=== PATIENT | female | born 1950 | race Two or more races ===

== ENCOUNTER 2021-06-01 09:16 | Outpatient (AMBR) | payer MEDICARE, MEDICAID, SELFPAY ==
--- NOTE | 2021-05-25 14:36 | PTNOTE_ITS ---
PT OP Initial Eval Patient Information Visit Reasons: [facility] Fall Medical Diagnosis: Falls Treatment Dx #1: Balance Defcits Treatment Dx #2: LE Weakness Start of Care: 05/25/21 Date of Onset: 3 months ago Initial Assessment Subjective Pt is a 71 y/o female c/o falls in the past months. Pt mention that she used to be on a lot of meds and lately her meds has been change to taking less. Pt feels dizzy, weak, and loss balance often. Pt currently walks with a quad cane or walker. Pt has limitation with self care, cooking, cleaning, recreational activities, walking, and uneven surfaces. Pt has a mottler operator that does help throughout the day. Objective BLE AROM: all motions are WFL LE MMTs Hip Flexors: 3/5 Quads: 4-/5 Hs: 3+/5 Glute Med: 3/5 Glute Max: 3/5 Balance Test: TUG- 25 sec; Tinetti- 15/28 SLS: unable Assessment Pt demonstrate LE weakness and balance deficits leading to difficulty with dynamic activities and frequent falls. Pt will benefit from physical therapy to increase LE strength, endurance, and work on overall balance. Short Term and [facility] Goals 1) Increase BLE MMTs grossly to 3+/5 in 4 wks to be able to walk more than 45 mins 2) Increase Tinetti score to 25/28 points in 4 wks to prevent future falls 3) Decrease TUG to 15 sec in 4 wks to be able to ambulate safer 4) Increase BLE SLS to 10 sec in 4 wks to be able to perform self care activities 5) Indep with HEP Treatment Plan 1) Manual Therapy 2) Therapeutic Activities 3) Therapeutic Exercises 4) Modalities (ice, heat) 5) Balance Training Frequency and Duration 2 x wk for 4 wks Certification Dates: 05/25/21 to 08/25/21 Office Procedures PT Procedures PT Date of Service: 05/25/21 OP PT Eval Mod Complex 30 minutes: Yes
--- NOTE | 2021-06-01 10:32 | PT.ODAYNRPT ---
PT Outpatient Daily Note Date of Service: 06/01/2021 OP Daily Note Visit Reasons: [facility] Fall Outpatient Physical Therapy Treatment Date: 06/01/21 Subjective: pt asked if she should take her anxiety meds prior to treatment. advised pt it is her choice. if she needs it she can take it. Objective: see flow sheet. Assessment: placed gait belt on pt for safety. pt used SPC but ambulates with trying to use things to grab onto. used chair behing pt for safety. pt fatigues and needs rest breaks in between. pt needed helping with counting the reps as she would forget. pt needed cuing to relax and take deep breaths. Plan: continue POC per PT. Length of Time (minutes) of Treatment: 30 Minutes HEAVY EQUIPMENT ENGINE MECHANIC Service Modifier Method I: Divide the number of min of care provided by the HEAVY EQUIPMENT ENGINE MECHANIC/NATALY by the total min of care provided then multiply by 100. If greater than 11 percent modifier is required. Method II: Divide the total time of care provided to patient by 10 (round to the nearest whole number) and add 1 min. to set the minimum time requirement. If treatment total was 60 min., then 10% of 6 min Did HEAVY EQUIPMENT ENGINE MECHANIC provide more than 10% of the care?: Yes PT CQ modifier applied: CQ Modifier applied Office Procedures PT Procedures PT Date of Service: 05/25/21 OP PT Eval Mod Complex 30 minutes: Yes PT Procedures PT Date of Service: 06/01/21 Therapeutic Exercise 30 minutes: Yes
== END 2021-06-05 23:59 | disposition home or self-care (01) ==
PROVIDERS: PCP Nurse Practitioner Family; Referring Provider Nurse Practitioner Family; Visit Provider Nurse Practitioner Family
DX: R53.1 Weakness (principal); R26.2 Difficulty in walking, not elsewhere classified; Z91.81 History of falling
CPT/HCPCS: 97110; 97162

== ENCOUNTER 2021-07-05 11:32 | Outpatient (AMBR) | payer MEDICARE, MEDICAID, SELFPAY ==
--- NOTE | 2021-06-18 11:25 | PTNOTE_ITS ---
PT Outpatient Daily Note Date of Service: 06/18/2021 OP Daily Note Visit Reasons: [facility] Fall Outpatient Physical Therapy Treatment Date: 06/18/21 Subjective: pt states she had a check up with a neuro doctor and told her she does not have parkinsons nor dementia. pt does mention she forgets to keep count of the reps. Objective: see flow sheet. Assessment: added new balance exercises inside the PB for safety. pt is unsteady but is testing her balance by not using the rails. advised her to use rails if needed. after the second rep of the tandem walking she was able to slightly improve her balance. progressed her side steps by adding the foam pad in which she had her hands above the rails but did not use them. Plan: continue POC per PT. Length of Time (minutes) of Treatment: 30 Minutes ELECTRICIAN STATION ASSISTANT Service Modifier Method I: Divide the number of min of care provided by the ELECTRICIAN STATION ASSISTANT/NATALY by the total min of care provided then multiply by 100. If greater than 11 percent modifier is required. Method II: Divide the total time of care provided to patient by 10 (round to the nearest whole number) and add 1 min. to set the minimum time requirement. If treatment total was 60 min., then 10% of 6 min Did ELECTRICIAN STATION ASSISTANT provide more than 10% of the care?: Yes PT CQ modifier applied: CQ Modifier applied Office Procedures PT Procedures PT Date of Service: 06/18/21 Therapeutic Exercise 30 minutes: Yes
--- NOTE | 2021-06-22 14:53 | PTNOTE_ITS ---
PT Outpatient Daily Note Date of Service: 06/22/2021 OP Daily Note Visit Reasons: [facility] Fall Outpatient Physical Therapy Treatment Date: 06/22/21 Subjective: pt doing well upon visit. Objective: see flow sheet. Assessment: after the scifit pt mentioned she was having pain in her abdominal area. pt ambulates with no AD and is unsteady with her gait. pt is able to balance herself during her exercises with no hands on the rail but she does keep them right above the rail. at the first she can be unsteady but then she improves her balance. even with her SLS balance she is improving. pt fatigued after exercises but had no other complaints. Plan: continue POC per PT. Length of Time (minutes) of Treatment: 30 Minutes TECHNOLOGY SOLUTIONS ARCHITECT Service Modifier Method I: Divide the number of min of care provided by the TECHNOLOGY SOLUTIONS ARCHITECT/NATALY by the total min of care provided then multiply by 100. If greater than 11 percent modifier is required. Method II: Divide the total time of care provided to patient by 10 (round to the nearest whole number) and add 1 min. to set the minimum time requirement. If treatment total was 60 min., then 10% of 6 min Did TECHNOLOGY SOLUTIONS ARCHITECT provide more than 10% of the care?: Yes PT CQ modifier applied: CQ Modifier applied Office Procedures PT Treatments PT Date of Service: 06/22/21 Therapeutic Exercise 30 minutes: Yes PT Treatments PT Date of Service: 06/18/21 Therapeutic Exercise 30 minutes: Yes
--- NOTE | 2021-06-26 12:39 | PTNOTE_ITS ---
PT Outpatient Daily Note Date of Service: 06/26/21 OP Daily Note Visit Reasons: [facility] Fall Outpatient Physical Therapy Treatment Date: 06/26/21 Subjective: Pt's anxiety was bad the other day with SOLAR SALES ADVISOR.Pt denies of any falls lately. Objective: Please see flow chart for list of ther ex performed Assessment: difficulty with tandem walking due to balance and fear of falling. performing the exercises in PB help decrease patient's anxiety. Plan: Continue with PT Length of Time (minutes) of Treatment: 30 Minutes Office Procedures PT Treatments PT Date of Service: 06/22/21 Therapeutic Exercise 30 minutes: Yes PT Treatments PT Date of Service: 06/18/21 Therapeutic Exercise 30 minutes: Yes PT Treatments PT Date of Service: 06/26/21 Therapeutic Exercise 30 minutes: Yes
--- NOTE | 2021-06-28 12:41 | PT.ODAYNRPT ---
PT Outpatient Daily Note Date of Service: 06/28/21 OP Daily Note Visit Reasons: [facility] Fall Outpatient Physical Therapy Treatment Date: 06/28/21 Subjective: Pt is doing better with less fear of falls at home. Pt still very concerns about her anxiety. Objective: Please see flow chart for list of ther ex performed Assessment: notice improved dynamic balance and single limb stability with exercises Plan: Continue with PT Length of Time (minutes) of Treatment: 30 Minutes Office Procedures PT Treatments PT Date of Service: 06/22/21 Therapeutic Exercise 30 minutes: Yes PT Treatments PT Date of Service: 06/28/21 Therapeutic Exercise 30 minutes: Yes PT Treatments PT Date of Service: 06/18/21 Therapeutic Exercise 30 minutes: Yes PT Treatments PT Date of Service: 06/26/21 Therapeutic Exercise 30 minutes: Yes
--- NOTE | 2021-07-03 12:43 | PT.ODAYNRPT ---
PT Outpatient Daily Note Date of Service: 07/03/21 OP Daily Note Visit Reasons: [facility] Fall Outpatient Physical Therapy Treatment Date: 07/03/21 Subjective: Pt's feeling stronger and has not fallen lately. Objective: Please see flow chart for list of ther ex performed Assessment: improved dynamic balance no use of hands with side step. performed exercises without difficulty. Pt exhibit less fear with ambulation when transitioning exercises Plan: Continue with PT Length of Time (minutes) of Treatment: 30 Minutes Office Procedures PT Treatments PT Date of Service: 06/22/21 Therapeutic Exercise 30 minutes: Yes PT Treatments PT Date of Service: 06/28/21 Therapeutic Exercise 30 minutes: Yes PT Treatments PT Date of Service: 06/18/21 Therapeutic Exercise 30 minutes: Yes PT Treatments PT Date of Service: 06/26/21 Therapeutic Exercise 30 minutes: Yes PT Treatments PT Date of Service: 07/03/21 Therapeutic Exercise 30 minutes: Yes
--- NOTE | 2021-07-05 16:04 | PT.ODS1RPT ---
PT OP Progress/Discharge Note Date of Service: 07/05/21 Progress Note/DC Note Progress Note/Discharge Note: DC Note Patient Information Visit Reasons: [facility] Fall Medical Diagnosis: Falls Treatment Dx #1: Balance Deficits Treatment Dx #2: LE Weakness Service Continue Service or Discharge: Discharge Discharge Date: 07/05/21 Status Subjective: Pt mention that her balance is much better. Pt has not fallen since starting physical therapy. Pt has been doing her exercises with her caregiver. Pt started cooking, cleaning, walking, and performing recreational activities with less limitation. Objective: BLE AROM: all motions are WNL LE MMTs Hip Flexors: 3+/5 Quads: 4/5 Hs: 4-/4 Glute Med: 3+/5 Glute Max: 3+/5 TU sec Tinetti: 20 SLS: 10 sec Assessment: Pt demonstrate improved balance and LE strength allowing her to perform ADLs, ambulate, stand, and decrease falls at home. At this time Pt will no longer benefit from physical therapy due to meeting set goals in therapy. Pt was instructed on HEP last session and educated to continue exercises to maintain LE strength/balance. Pt performed all exercises safely, thank you for your referrals. Plan: D/C home with HEP and follow up with MD [facility] Office Procedures PT Treatments PT Date of Service: 06/22/21 Therapeutic Exercise 30 minutes: Yes PT Treatments PT Date of Service: 06/28/21 Therapeutic Exercise 30 minutes: Yes PT Treatments PT Date of Service: 07/05/21 Therapeutic Exercise 30 minutes: Yes PT Treatments PT Date of Service: 06/18/21 Therapeutic Exercise 30 minutes: Yes PT Treatments PT Date of Service: 06/26/21 Therapeutic Exercise 30 minutes: Yes PT Treatments PT Date of Service: 07/03/21 Therapeutic Exercise 30 minutes: Yes
== END 2021-07-05 23:59 | disposition home or self-care (01) ==
PROVIDERS: PCP Nurse Practitioner Family; Referring Provider Nurse Practitioner Family; Visit Provider Nurse Practitioner Family
DX: R53.1 Weakness (principal); R26.2 Difficulty in walking, not elsewhere classified; Z91.81 History of falling
CPT/HCPCS: 97110

== ENCOUNTER 2024-10-08 02:39 | Emergency (ER) | payer OTHER, MEDICARE, MEDICAID, SELFPAY ==
[2024-10-08 02:56] VITALS: BP 143/60; PULSE 69; RESP 16; TEMP 36.6; O2SAT 94
--- NOTE | 2024-10-08 03:14 | PD.EDRME ---
Rapid Medical Screening Exam RME Arrival date/time: 10/08/24 02:39 74 year old female present to ED for c/o of sob, not feeling well tonight I have greeted and performed a focused initial assessment of this patient. A comprehensive ED assessment and evaluation of the patient, analysis of all test results, and completion of the medical decision making process will be conducted by additional ED providers. Chief Complaint: General Adult/Misc Complain Time Seen by Provider: 10/08/24 03:14 Vital signs: Vital Signs Temperature 97.9 F 10/08/24 02:56 Pulse Rate 69 10/08/24 02:56 Respiratory Rate 16 10/08/24 02:56 Blood Pressure 143/60 H 10/08/24 02:56 Pulse Oximetry (%) 94 L 10/08/24 02:56 Oxygen Delivery Method Room Air 10/08/24 02:56
--- NOTE | 2024-10-08 03:15 | EKG_ITS ---
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
--- NOTE | 2024-10-08 03:15 | XR_ITS ---
Examination: PA lateral chest 2 views TECHNIQUE: Upright PA lateral chest 2 views Exam date and time: October 08, 2024 1533 hours INDICATIONS: Shortness of breath today FINDINGS: Normal heart size Lungs are clear Coronary artery calcification Moderate osteopenia IMPRESSION: No active disease
[2024-10-08 03:48] LABS: Basophils # (Auto) 0.1 Thou/mm3 (0.0-0.2); Basophils % (Auto) 1 % (0-2.5); Eosinophils # (Auto) 0.1 Thou/mm3 (0.0-0.5); Eosinophils % (Auto) 1 % (0-10); Hematocrit 30.7 % (36.0-46.0); Hemoglobin 10.7 g/dL (12.0-16.0); Immature Granulocytes % (Auto) 0 % (0-0); Immature Granulocytes Auto 0.05 Thou/mm3 (0.00-0.00); Lymphocytes # (Auto) 3.2 Thou/mm3 (1.0-4.8); Lymphocytes % (Auto) 26 % (10-50); Mean Corpuscular HGB Conc 34.9 g/dl (31.0-37.0); Mean Corpuscular Hemoglobin 28.5 pg (25.0-35.0); Mean Corpuscular Volume 82 fL (80-100); Monocytes # (Auto) 0.9 Thou/mm3 (0.0-0.8); Monocytes % (Auto) 7 % (0-12); Neutrophils # (Auto) 8.1 Thou/mm3 (1.8-7.7); Neutrophils % (Auto) 66 % (37-80); Nucleated Red Blood Cell % 0 /100 WBC (0); Platelet Count 225 Thou/mm3 (140-440); RDW Standard Deviation 40.3 fL (36.4-46.3); Red Blood Count 3.75 Miln/mm3 (4.00-5.20); White Blood Count 12.4 Thou/mm3 (3.6-11.0)
[2024-10-08 04:06] LABS: Alanine Aminotransferase 20 U/L (10-49); Albumin, Serum 5.3 gm/dL (3.4-4.8); Alkaline Phosphatase 75 U/L (46-116); Anion Gap 12 (7-16); Aspartate Amino Transferase 20 U/L (0-34); BUN/Creatinine Ratio 11 Ratio (12-20); Bilirubin,Total 0.4 mg/dL (0.3-1.2); Blood Urea Nitrogen 13 mg/dL (9-23); Calcium 10.3 mg/dL (8.3-10.6); Calcium (Corrected) 10.3 mg/dL (8.5-10.1); Carbon Dioxide 22.4 mMol/L (20.0-31.0); Chloride 103 mMol/L (98-107); Creatinine (Component) 1.2 mg/dL (0.6-1.3); Globulin 2.7 gm/dL (2.3-3.5); Glucose 213 mg/dL (74-106); Osmolality,Calculated 279 (275-295); Potassium 3.8 mMol/L (3.4-5.1); Sodium 137 mMol/L (136-145); Troponin I < 0.002 ng/mL (0.0-0.045); eGFR 47 See Note
[2024-10-08 04:11] LABS: B-Type Natriuretic Peptide 41 pg/mL (0-100)
[2024-10-08 04:22] LABS: Collection Type, Urine Voided
[2024-10-08 04:38] LABS: Bacteria,Urine Rare; Bilirubin,Urine Negative (Negative); Blood,Urine Negative (Negative); Clarity,Urine Clear (Clear/Hazy); Color,Urine Colorless (Lt Yel-Yel); Glucose, Urine Negative (Negative); Ketones,Urine Negative (Negative); Leukocyte Esterase,Urine Negative (Negative); Nitrite,Urine Negative (Negative); Protein,Urine Negative (Neg - Trace); RBC,Urine 1 /hpf (0-3); Specific Gravity,Urine 1.005 (1.001-1.035); Squamous Epithelial Cell,Urine < 1 /hpf (0-5); Urobilinogen,Urine Negative mg/dL (0.0-1.0); WBC,Urine 1 /hpf (0-5)
[2024-10-08 06:11] VITALS: BP 127/62; PULSE 67; RESP 16; TEMP 36.5; O2SAT 98
[2024-10-08 08:13] VITALS: BP 137/75; PULSE 72; RESP 16; TEMP 36.8; O2SAT 98
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
[2024-10-08 08:50] VITALS: BP 117/62; PULSE 67; RESP 19; TEMP 36.9; O2SAT 99; BMI 22.6
== END 2024-10-08 09:01 | disposition home or self-care (01) ==
PROVIDERS: Physician Assistant; Emergency Provider Emergency Medicine; PCP Nurse Practitioner Family
DX: F43.9 Reaction to severe stress, unspecified (principal); B34.9 Viral infection, unspecified; Z63.8 Other specified problems related to primary support group; I10 Essential (primary) hypertension; E11.9 Type 2 diabetes mellitus without complications; E78.5 Hyperlipidemia, unspecified
CPT/HCPCS: 36415; 71046; 80053; 81001; 83880; 84484; 85025; 87400; 87811; 93005; 99283

== ENCOUNTER 2025-01-16 11:27 | Emergency (ER) | payer OTHER, MEDICARE, MEDICAID, SELFPAY ==
[2025-01-16 11:37] VITALS: BP 136/61; PULSE 71; RESP 18; TEMP 36.6; O2SAT 97; BMI 19.6
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
[2025-01-16 12:46] LABS: Basophils # (Auto) 0.1 Thou/mm3 (0.0-0.2); Basophils % (Auto) 1 % (0-2.5); Eosinophils # (Auto) 0.1 Thou/mm3 (0.0-0.5); Eosinophils % (Auto) 1 % (0-10); Hematocrit 31.8 % (36.0-46.0); Hemoglobin 10.7 g/dL (12.0-16.0); Immature Granulocytes % (Auto) 1 % (0-0); Immature Granulocytes Auto 0.07 Thou/mm3 (0.00-0.00); Lymphocytes # (Auto) 2.1 Thou/mm3 (1.0-4.8); Lymphocytes % (Auto) 17 % (10-50); Mean Corpuscular HGB Conc 33.6 g/dl (31.0-37.0); Mean Corpuscular Hemoglobin 27.6 pg (25.0-35.0); Mean Corpuscular Volume 82 fL (80-100); Monocytes % (Auto) 8 % (0-12); Neutrophils # (Auto) 9.2 Thou/mm3 (1.8-7.7); Neutrophils % (Auto) 73 % (37-80); Nucleated Red Blood Cell % 0 /100 WBC (0); Platelet Count 292 Thou/mm3 (140-440); RDW Standard Deviation 39.4 fL (36.4-46.3); Red Blood Count 3.87 Miln/mm3 (4.00-5.20); White Blood Count 12.6 Thou/mm3 (3.6-11.0)
[2025-01-16 13:08] LABS: Alanine Aminotransferase 8 U/L (10-49); Albumin, Serum 4.7 gm/dL (3.4-4.8); Albumin/Globulin Ratio 1.5 (1.2-2.2); Alkaline Phosphatase 68 U/L (46-116); Anion Gap 11 (7-16); Aspartate Amino Transferase 12 U/L (0-34); BUN/Creatinine Ratio 10 Ratio (12-20); Bilirubin,Total 0.7 mg/dL (0.3-1.2); Blood Urea Nitrogen 10 mg/dL (9-23); Calcium 9.6 mg/dL (8.3-10.6); Calcium (Corrected) 9.6 mg/dL (8.5-10.1); Carbon Dioxide 24.6 mMol/L (20.0-31.0); Chloride 104 mMol/L (98-107); Estimated Creatinine Clearance 36.2 mL/min (>60); Globulin 3.2 gm/dL (2.3-3.5); Glucose 147 mg/dL (74-106); Osmolality,Calculated 281 (275-295); Potassium 3.4 mMol/L (3.4-5.1); Sodium 140 mMol/L (136-145); Total Protein 7.9 gm/dL (5.7-8.2); eGFR 59 See Note
--- NOTE | 2025-01-16 13:42 | PC.CC ---
Sustainability Coach met with Pt and life partner and provided community resources, clinics, [facility], and possible at home support.
--- NOTE | 2025-01-16 13:53 | PC.NURSE ---
called pt back, no answer at this time
--- NOTE | 2025-01-16 14:28 | PC.NURSE ---
CALLED PT BACK, NO ANSWER AT THIS TIME
--- NOTE | 2025-01-16 15:01 | PC.NURSE ---
called pt back, no answer at this time
== END 2025-01-16 15:02 | disposition left against medical advice (07) ==
PROVIDERS: Nurse Practitioner Family; Emergency Provider Emergency Medicine; PCP Nurse Practitioner Family
DX: R10.9 Unspecified abdominal pain (principal); Z53.29 Procedure and treatment not carried out because of patient's decision for other reasons; F41.9 Anxiety disorder, unspecified; I10 Essential (primary) hypertension; E11.9 Type 2 diabetes mellitus without complications; E78.5 Hyperlipidemia, unspecified; Z86.73 Personal history of transient ischemic attack (TIA), and cerebral infarction without residual deficits
CPT/HCPCS: 36415; 80053; 81001; 85025; 99281

== ENCOUNTER 2025-02-22 18:43 | Inpatient (IN) | payer OTHER, MEDICARE, SELFPAY ==
--- NOTE | 2025-02-22 18:48 | PD.EDRME ---
Rapid Medical Screening Exam RME Arrival date/time: 02/22/25 18:43 Time Seen by Provider: 02/22/25 18:47 Vital signs reviewed by provider: No RME Narrative: 74-year-old with history of multiple CVAs on Eliquis with ground-level fall when she was walking her dog. Trip and fall spent significant Patient is complaining of right hip pain. Wall the patient hit her head against a wall. No LOC once no neck pain, No numbness or weakness.. History taken by EMS. Past medical history is hypertension, CVA on Eliquis diabetes, anxiety En route to hospital blood pressure stable patient given IV meds 100 mg of fentanyl Tylenol Zofran
[2025-02-22 18:53] VITALS: BP 202/80; PULSE 76; RESP 18; TEMP 37.2; O2SAT 97
--- NOTE | 2025-02-22 19:03 | EDNOTE_ITS ---
ED Fall Injury RME/HPI General Chief Complaint: Fall Stated Complaint: FALL Time Seen by Provider: 02/22/25 18:47 Source: patient, family, RN notes reviewed and old records reviewed Arrival date/time: 02/22/25 18:43 Mode of arrival: EMS Limitations: no limitations RME / HPI RME / HPI Narrative: 74-year-old with history of multiple CVAs on Eliquis with ground-level fall when she was walking her dog. Trip and fall spent significant Patient is complaining of right hip pain. Wall the patient hit her head against a wall. No LOC once no neck pain, No numbness or weakness.. History taken by EMS. Past medical history is hypertension, CVA on Eliquis diabetes, anxiety En route to hospital blood pressure stable patient given IV meds 100 mg of fentanyl Tylenol Zofran DR. KERNS?Michele MAIN ED EVALUATION: 74-year-old female with history of multiple CVA's, Paralysis, HTN, RA, and Eliquis use presenting to the emergency department via EMS who is presenting for chief complaint of severe right hip pain s/p ground-level fall. Patient went to unlock the front door for her boyfriend when she stepped back and her dog ran between her legs causing her to trip, fall back and hit her head on the wall. Reports severe pain with movement and is unable to ambulate. Per EMS, GCS 15, no LOC, head or neck pain. Patient given Tylenol 1g, Zofran 4mg, and Fentanyl 100 mg, en route. Patient denies any other associated symptoms or medical complaints. - PMH: Cerebrovascular Accident, Transient Ischemic Attacks, Paralysis, Coronary Artery Disease, Hypercholesterolemia, Hypertension, Asthma, Pneumonia, Hiatal Hernia, Hemorrhoids and Gastroesophageal Reflux Disease, Arthritis, Rheumatoid Arthritis, Degenerative Disk Disease, Diabetes Mellitus Type 2, Anemia, Depression and Anxiety - PSH: Denies - Social history: Former smoker - Current medications: Reviewed MD complaint: fall Fall from: standing Fall witnessed: yes, by bystander (Boyfriend) Place fall occurred: home Loss of consciousness: none Context: tripped/slipped Location of injury: head and pelvis Related Data Home Medications ?Medication ?Instructions ?Recorded ?Confirmed acetaminophen 500 mg tablet (Mapap 500 mg PO Q8H PRN P ain 11/16/19 01/13/24 Extra Strength) amlodipine 10 mg tablet 10 mg PO HS 11/16/19 4 atenolol 25 mg tablet 12.5 mg PO QDAY 11/16/1909/24 losartan 100 mg tablet 100 mg PO QDAY 11/16/1906/29 potassium chloride 20 mEq 20 meq PO QDAY 11/16/1911/06 tablet,extended release semaglutide 3 mg tablet 3 mg PO HS 11/16/19 11/17/19 sertraline 50 mg tablet 50 mg PO QDAY 11/16/1911/17 simvastatin 40 mg tablet (Zocor) 40 mg PO HS 11/16/19 11/17/19 buspirone 10 mg tablet 10 mg PO DAILY 01/13/2406/29 lidocaine HCl 4 % topical cream 1 applic topical PRN P RN Pain 01/13/24 01/13/24 (Aspercreme (lidocaine HCl)) metformin 850 mg tablet 850 mg PO BIDWMEAL 01/13/24 01/13/24 mirtazapine 7.5 mg tablet 7.5 mg PO HS 01/13/24 Previous Rx's ?Medication ?Instructions ?Recorded apixaban 5 mg (74 tabs) tablets in 5 mg PO BID #74 tab s 01/08/24 a dose pack ([employer] DVT-PE Treat 30D Start) Allergies Allergy/AdvReac Type Severity Reaction Status Date / Time POTASSIUM LIQUID Allergy Severe Anaphylaxis Uncoded 11/16/19 13:18 Review of Systems Review of Systems Systems Reviewed: All systems reviewed, normal except as documented Narrative Review of Systems: Musc/skel: Positive right hip pain,k no neck pain Neuro: No headache, no LOC Past Medical History Past Medical History NEUROLOGIC: Positive Neurological Disorders, Cerebrovascular Accident, Transient Ischemic Attacks (TIA) and Paralysis CARDIAC: Positive Coronary Artery Disease, Hypercholesterolemia and Hypertension RESPIRATORY: Positive Asthma and Pneumonia GASTROINTESTINAL: Positive Gastrointestinal Disorders, Hiatal Hernia, Hemorrhoids and Gastroesophageal Reflux Disease REPRODUCTIVE: Positive Previous Pregnancies MUSCULOSKELETAL: Positive Musculoskeletal Disorders, Arthritis, Rheumatoid Arthritis and Degenerative Disk Disease ENDOCRINE: Positive Endocrine Disorders and Diabetes Mellitus Type 2 HEMATOLOGIC: Positive Blood Disorders and Anemia PSYCHO/SOCIAL: Positive Depression and Anxiety OTHER HISTORY: Positive Hospitalization Family History FAMILY HISTORY: Positive Family Psychiatric Problems, Family Respiratory Disorders, Family Cardiac Disorders, Family Surgery and Family Anesthesia Reaction Surgical History SURGICAL: Positive Coronary Stent, Angiogram, Hysterectomy and Tubal Ligation Social History SMOKING STATUS: Former smoker ED Exam Narrative Physical exam: General: Non-toxic, well appearing, in no acute distress, and appears stated age and well developed and well nourished. Vital signs: Normal. Head: Normocephalic and atraumatic. Eyes: Aproptotic, extraocular movements intact. Nose: Nares without evidence of rhinorrhea. Neck: Supple without menigismus without lympadenopathy. Heart: Regular rate and rhythm without murmur, gallops, or rubs. Lungs: Clear to auscultation without wheezing, rales, or rhonchi. Abdomen: Soft, non distended. No tenderness. Normal bowel sounds. Negative Schuler sign and no McBurney?s point tenderness. No guarding, rebound, or rovsing. Back: No costovertebral angle tenderness. No midline, thoracic or lumbar tenderness. Neurological: Alert and oriented to person, place, time. Extremities: Right hip and knee are flexed. There's no tenderness at the right knee or femur. Tenderness at the right hip. No cyanosis or edema. Good distal p ulses bilaterally. Skin: no rashes, ecchymosis, or lesions. General Limitations: Present no limitations Course Course Course Narrative: Status post CAT scan, patient is reevaluated. Her neck is clinically cleared. Quality Measures none Orders Category Date Time Status EKG (ED ONLY) *Do not use* NOW Care 02/22/25 19:04 Completed [place] [Urinary Catheter] QS Care 02/22/25 22:25 Active Insert IV STAT Care 02/22/25 19:04 Active NPO NOW Care 02/22/25 19:04 Active Obtain Written Consent For: .NOW Care 02/22/25 23:22 Active Rigid cervical collar PRN Care 02/22/25 19:[address] cervical spine wo con Stat Exams 02/22/25 19:[address] head/brain wo con Stat Exams 02/22/25 19:04 Completed EKG (ED Only) Stat Exams 02/22/25 19:04 Ordered XR femur RT 2V Stat Exams 02/22/25 21:07 Completed XR hip RT 1V Stat Exams 02/22/25 23:12 Ordered XR hip RT w pelvis 2-3V Stat Exams 02/22/25 21:03 Completed XR knee RT 3V Stat Exams 02/22/25 21:08 Completed Alcohol, Blood Medical Stat Lab 02/22/25 19:55 Completed Antibody Identification Stat Lab 02/22/25 19:55 Completed CBC Stat Lab 02/22/25 19:55 Completed Comprehensive Metabolic Panel Stat Lab 02/22/25 19:55 Completed Drug Screen,Urine Stat Lab 02/22/25 19:04 Ordered Lactate (Lactic Acid) Stat Lab 02/22/25 19:55 Completed Lactic Acid, 3 HR Stat Lab 02/22/25 23:23 Completed Lipase Stat Lab 02/22/25 19:55 Completed Partial Thromboplastin Time Stat Lab 02/22/25 19:55 Completed Prothrombin Time with INR Stat Lab 02/22/25 19:55 Completed Troponin I Stat Lab 02/22/25 19:55 Completed Type and Screen Stat Lab 02/22/25 19:55 Completed Urinalysis Stat Lab 02/22/25 19:04 Ordered Ondansetron Inj [Zofran Inj] Med 02/22/25 21:08 Discontinued 4 mg IV X1 ONE fentaNYL INJ [Sublimaze Inj] Med 02/22/25 20:31 Discontinued 50 mcg IVP X1 ONE fentaNYL INJ [Sublimaze Inj] Med 02/22/25 21:08 Discontinued 50 mcg IVP X1 ONE Vital Signs Vital signs: Vital Signs Temperature 98.9 F 02/22/25 18:53 Pulse Rate 76 02/22/25 18:53 Respiratory Rate 18 02/22/25 18:53 Blood Pressure 202/80 H 02/22/25 18:53 Pulse Oximetry (%) 97 02/22/25 18:53 Oxygen Delivery Method Room Air 02/22/25 18:53 Fall MDM Narrative MDM Narrative:: Scribe Attestation: 02/22/2025 Giana Stanley am scribing for and in the presence of Dr. Kerns. Provider Notation: Although this document has been carefully reviewed, there may still be some phonetic and other typographical errors. These errors are purely grammatical due to imperfections in the software program and should not be construed in any way to compromise the substance of the patient's medical care during this visit. Cannot confirm the patient is on Eliquis. Patient was previously on Eliquis, but likely no longer is. Differential diagnosis includes fracture, dislocation, abrasion, intracranial bleeding This is a 74-year-old female coming in after mechanical fall. This was witnessed at home. No LOC or neck pain. In the emergency department the CT scan of head and neck are negative and neck is cleared clinically. Of note the patient has a anterior trochanteric fracture otherwise neurovascular intact and pulses equal bilaterally in the lower extremities. Patient does not state that she had chest pain, shortness of breath and EKG shows no new onset arrhythmia. Doubt NE, and although the blood pressure is elevated I do not feel the patient has hypertensive emergency or urgency. No with worst headache of life. Of note the patient's lactic acid is 2.9 but otherwise the patient does not meet sepsis criteria. Potassium is 3.1 is slightly decreased and we will replace that orally. Discussed with Dr. Salcedo the orthopedic on-call and at this time he does not feel the patient is on Eliquis. We have not been able to confirm but it looks like in her previous record she has not picked up the prescription after that initially 3 months ago. I have called her twice and there is no answer. Patient data External records reviewed:: [facility] previous records (Reviewed prior ED records from 01/16/25. Patient was seen for Unspecified abdominal pain.) and EMS form Clinical information provided by:: patient and EMS (GCS 15, no LOC, head or neck pain. Patient given Tylenol 1g, Zofran 4mg, and Fentanyl 100 mg, en route.) Social determinants that could affect healthcare access:: none Patient has the following chronic illnesses:: Cerebrovascular Accident, Transient Ischemic Attacks, Paralysis, Coronary Artery Disease, Hypercholesterolemia, Hypertension, Asthma, Pneumonia, Hiatal Hernia, Hemorrhoids and Gastroesophageal Reflux Disease, Arthritis, Rheumatoid Arthritis, Degenerative Disk Disease, Diabetes Mellitus Type 2, Anemia, Depression and Anxiety How is presenting disease/condition affected by chronic disease/condition?: exacerbated by Evaluation data The following diagnostics were reviewed and interpreted by me:: lab results, radiology exam(s) and EKG tracing(s) (done at 1955, NSR, rate of 73, low voltage, poor R wave progression, QTc: 424, RI: 63, no acute ischemia) Lab and/or radiology exams considered but not ordered:: None Interpretation Summary: LABS WBC 16.3, RBC 3.61, Hgb 9.9, Hct 28.3%, MCV 78, Neutrophils % 86%, Lymphocytes % 95%, Neutrophils # 14.0, Immature granulocyte # 0.08, Immature granulocyte % 1%. Sodium 133, Potassium 3.1, estimated creatinine 38.8, BUN/Creatinine ratio 10, Glucose 192, Calculated Osmolality 270, Lactic Acid 3.2. RADIOLOGY Head CT: CT head, my interpretation: reviewed, interpreted, and agreed with radiologist report; see below. Findings: No significant ventricular enlargement. Intra-axial or extra-axial hemorrhage density is not seen. No mass effect or midline shift Basal cisterns are not remarkable. Fourth ventricle is midline. Cranial vault intact. Impression: Negative for acute hemorrhage, mass effect or midline shift Cervical Spine CT: CT cervical spine, my interpretation: reviewed, interpreted, and agreed with radiologist report; see below. Findings: Axial sections demonstrate intact base of the skull. C1 exhibit satisfactory relationship to the odontoid. No acute cervical vertebral body fracture seen. Alignment posterior spinous processes satisfactory. Impression: No acute cervical fracture. [facility] Signed Patient: UZMA MENDOZA [facility]. Record#: [id number] Birthdate: 1950 Age/Sex: 74 / F Location: [facility]X Attending Dr: Ordering Physician: Lucy Almaraz MD Date of Service: 02/22/25 Procedure(s): XR hip RT w pelvis 2-3V Accession Number(s): [id number] cc: Jorge Villalba MD; NO PRIMARY/FAMILY,PHYSICIAN; Lucy Almaraz MD~ Examination:Right hip AP, lateral, AP pelvis 3 views Technique: Hip AP lateral, AP pelvis, 3 views Exam date and time:February 22, 20258 hours INDICATIONS: Patient fell today with injury to the right hip, right hip pain FINDINGS: Acute intertrochanteric fracture right hip Avulsion of the lesser trochanter Left hip bones of the pelvis and direct IMPRESSION: Acute intertrochanteric fracture right hip. Dictated By: Jorge Villalba MD Signed By: <Electronically signed by Jorge Villalba MD in OV> 02/22/252230 [facility] Signed Patient: UZMA MENDOZA. Record#: [id number] Birthdate: 1950 Age/Sex: 74 / F Location: SERX Attending Dr: Ordering Physician: Lucy Almaraz MD Date of Service: 02/22/25 Procedure(s): XR femur RT 2V Accession Number(s): [id number] cc: Jorge Villalba MD; NO PRIMARY/FAMILY,PHYSICIAN; Lucy Almaraz MD~ Examination: Right femur 2 views TECHNIQUE: Right femur 2 views AP lateral Date and time: February 22, 2025 2142 hours INDICATIONS: Patient fell today with injury to the femur, femur pain. FINDINGS: Acute intertrochanteric fracture right hip Avulsion of the lesser trochanter Shaft of the femur intact IMPRESSION: Acute intertrochanteric fracture right hip Dictated By: Jorge Villalba MD Signed By: <Electronically signed by Jorge Villalba MD in OV> 02/22/252231 [facility] Signed Patient: UZMA MENDOZA Record#: [id number] Birthdate: 1950 Age/Sex: 74 / F Location: SERX Attending Dr: Ordering Physician: Lucy Almaraz MD Date of Service: 02/22/25 Procedure(s): XR knee RT 3V Accession Number(s): [id number] cc: Jorge Villalba MD; NO PRIMARY/FAMILY,PHYSICIAN; Lucy Almaraz MD~ Examination: Knee, right , 3 views Technique: Knee AP, lateral, oblique 3 views Date and time of exam: February 22, 20258 hours INDICATIONS: Patient fell today with injury of the knee, knee pain. FINDINGS: No fracture or dislocation. No foreign body IMPRESSION: No fracture or dislocation Dictated By: Jorge Villalba MD Signed By: <Electronically signed by Jorge Villalba MD in OV> 02/22/25 2233 Medications / Prescriptions Medications or Prescriptions considered but not ordered:: None Medication administrations:: Medication Administration History Acetaminophen (Acetaminophen 325 Mg Tablet) 650 mg PO Q6H PRN PRN Reason: PAIN OR FEVER > 101 Stop: 03/24/25 23:46 Dextrose (Dextrose 50%-Water Inj 50 Ml Syringe) 25 ml IV Q15MIN PRN PRN Reason: BG 50-70 responsive npo pt Stop: 03/25/25 00:12 Dextrose (Dextrose 50%-Water Inj 50 Ml Syringe) 50 ml IV Q15MIN PRN PRN Reason: BG <50 OR BG <70 & pt unresponsive Stop: 03/25/25 00:12 Glucagon (Glucagon Inj 1 Mg Vial) 1 mg IM Q15MIN PRN PRN Reason: BG <70, and no IV access Insulin Human Lispro (Insulin Lispro (Admelog) 1 Unit/0.01 Ml Unit) 0 unit SC AC PONCHO; Protocol Stop: 03/25/25 07:29 Labetalol HCl (Labetalol Inj 5 Mg/Ml Vial 20 Ml) 10 mg IVP Q6HR PRN PRN Reason: SBP>170 Stop: 03/25/25 00:11 Losartan Potassium (Losartan Potassium 25 Mg Tablet) 100 mg PO QDAY [facility] Stop: 03/25/25 08:59 Mirtazapine (Mirtazapine 15 Mg Tablet) 7.5 mg PO HS [facility] Stop: 03/25/25 20:59 Morphine Sulfate (Morphine Sulf Inj 10 Mg/Ml Vial) 4 mg IVP Q3HR PRN PRN Reason: PAIN SCALE 4-10(Mod-Sev Last Admin: 02/23/25 00:15 Dose: 4 mg Documented By: CHRISTOPHE Ondansetron HCl (Ondansetron Inj 2 Mg/Ml Inj 2 Ml) 4 mg IV Q6H PRN; Protocol PRN Reason: NAUSEA OR VOMITING Stop: 03/24/25 23:46 Last Admin: 02/23/25 00:14 Dose: 4 mg Documented By: CHRISTOPHE Sennosides (Senna Tablet) 2 tab PO BID PRN; Protocol PRN Reason: CONSTIPATION Stop: 03/24/25 23:46 Discontinued Medications Fentanyl Citrate (Fentanyl Cit Inj 50 Mcg/Ml Amp 2ml) 50 mcg IVP X1 ONE Stop: 02/22/25 20:32 Last Admin: 02/22/25 20:41 Dose: 50 mcg Documented By: CHRISTOPHE Fentanyl Citrate (Fentanyl Cit Inj 50 Mcg/Ml Amp 2ml) 50 mcg IVP X1 ONE Stop: 02/22/25 21:09 Last Admin: 02/22/25 21:21 Dose: 50 mcg Documented By: JIMENEZ Ondansetron HCl (Ondansetron Inj 2 Mg/Ml Inj 2 Ml) 4 mg IV X1 ONE; Protocol Stop: 02/22/25 21:09 Last Admin: 02/22/25 21:21 Dose: 4 mg Documented By: JIMENEZ See above if any Consultations Consultation(s) initiated? (list below): Yes Consultation #1 (Physician, Specialty, Details): Discussed case with Dr. Salcedo from orthopedic surgery regarding consultation. Discussed patients ED course, exam findings, labs, and radiology results. Agrees to consult. Time: 23:00 Consultation #2 (Physician, Specialty, Details): Discussed case with the resident physician, attending Dr. Vargas from Hospitalist service regarding admission. Discussed patients ED course, exam findings, labs, and radiology results. The Hospitalist agrees to accept the patient for admission. Time: 23:02 Diagnosis Fall Differential Diagnosis: compression fracture, concussion without loss of consciousness and other (Hip fracture, laceration, contusion, abrasion) Most likely diagnosis given after review of the tests above:: Intertrochanteric fracture of right hip Admission Indicated Admission indicated?: indicated Admission Request Was there a request for admission?: Yes Admission Attestation Admission request attestation: Discussed case with [] from Hospitalist service regarding admission. Discussed patients ED course, exam findings, labs, and radiology results. The Hospitalist [agrees,declines] to accept the patient for admission. Disposition Plan Disposition Plan: Admit Critical Care Time Critical Care Time Critical Care Time: Yes Total Critical Care Time (min.): 45 Attestation: The high probability of sudden, clinically significant deterioration in the patient?s condition required the highest level of my preparedness to intervene urgently. The services I provided to this patient were to treat and/or prevent clinically significant deterioration. Services included the following: chart data review, reviewing nursing notes and/or old charts, documentation time, [employer]iss[employer] sales consultant collaboration regarding findings and treatment options, medication orders and management, direct patient care, vital sign assessments and ordering, interpreting and reviewing diagnostic studies and lab tests. This time excludes any procedures. Discharge Plan Plan Patient Disposition: Admit Acute Care w/in Hospital Patient condition on transfer: Stable Problem List Clinical Impression: Intertrochanteric fracture of right hip, Acute hypokalemia
--- NOTE | 2025-02-22 19:04 | XR_ITS ---
Examination: CT cervical spine without contrast 2-D sagittal reconstructions 2-D coronal reconstructions 3-D reconstructions. Exam date and time:February 22, 2025 1919 hours INDICATIONS: Ground-level fall today with images the neck, neck pain CTDI:vol (mGy) 7.56 DLP: (mGycm) 147 Technique: Multiple 2 mm axial sections of the cervical spine have been obtained. The coronal and sagittal reconstructions have been obtained. 3-D reconstructions have been obtained. Low dose protocols were performed. One or more of the following dose reduction techniques were used; automated exposure control, adjustment of the mA and/or KV according to patient size, use of iterative reconstruction technique. Findings: Axial sections demonstrate intact base of the skull. C1 exhibit satisfactory relationship to the odontoid. No acute cervical vertebral body fracture seen. Alignment posterior spinous processes satisfactory. Impression: No acute cervical fracture.
--- NOTE | 2025-02-22 19:04 | XR_ITS ---
Examination: CT brain head without contrast. 2-D sagittal coronal reconstructions Date and time of exam:February 22, 2025 1919 hours INDICATIONS: Ground-level fall today with injury to the head, head pain CTDI: vol (mGy):44 DLP: (mGycm):881 Technique: Multiple CT axial sections of the brain have been obtained, 5 mm slice thickness. Contrast has not been administered. 2-D sagittal, coronal reconstructions have been obtained Low dose protocols were performed. One or more of the following dose reduction techniques were used; automated exposure control, adjustment of the mA and/or KV according to patient size, use of iterative reconstruction technique. Findings: No significant ventricular enlargement. Intra-axial or extra-axial hemorrhage density is not seen. No mass effect or midline shift Basal cisterns are not remarkable. Fourth ventricle is midline. Cranial vault intact. Impression: Negative for acute hemorrhage, mass effect or midline shift
[2025-02-22 19:14] VITALS: PULSE 85; RESP 16; O2SAT 99; BMI 22.2
[2025-02-22 19:25] VITALS: BP 188/115; PULSE 75; RESP 20; TEMP 37; O2SAT 99
[2025-02-22 20:10] LABS: Lactate (Lactic Acid) 3.2 mMol/L (0.4-2.0)
[2025-02-22 20:11] LABS: Basophils # (Auto) 0.1 Thou/mm3 (0.0-0.2); Basophils % (Auto) 0 % (0-2.5); Eosinophils % (Auto) 0 % (0-10); Hematocrit 28.3 % (36.0-46.0); Hemoglobin 9.9 g/dL (12.0-16.0); Immature Granulocytes % (Auto) 1 % (0-0); Immature Granulocytes Auto 0.08 Thou/mm3 (0.00-0.00); Lymphocytes # (Auto) 1.5 Thou/mm3 (1.0-4.8); Lymphocytes % (Auto) 9 % (10-50); Mean Corpuscular Hemoglobin 27.4 pg (25.0-35.0); Mean Corpuscular Volume 78 fL (80-100); Monocytes # (Auto) 0.7 Thou/mm3 (0.0-0.8); Monocytes % (Auto) 4 % (0-12); Neutrophils % (Auto) 86 % (37-80); Nucleated Red Blood Cell % 0 /100 WBC (0); Platelet Count 224 Thou/mm3 (140-440); RDW Standard Deviation 42.3 fL (36.4-46.3); Red Blood Count 3.61 Miln/mm3 (4.00-5.20); White Blood Count 16.3 Thou/mm3 (3.6-11.0)
[2025-02-22 20:30] LABS: Partial Thromboplastin Time 24.2 Seconds (22.0-36.0); Prothrombin Time 11.4 Seconds (9.0-12.2)
[2025-02-22 20:36] LABS: Alanine Aminotransferase 19 U/L (10-49); Albumin, Serum 4.7 gm/dL (3.4-4.8); Albumin/Globulin Ratio 1.7 (1.2-2.2); Alcohol, Blood Medical < 3.0 mg/dL (0-10.0); Alkaline Phosphatase 59 U/L (46-116); Anion Gap 12 (7-16); Aspartate Amino Transferase 24 U/L (0-34); BUN/Creatinine Ratio 10 Ratio (12-20); Bilirubin,Total 0.4 mg/dL (0.3-1.2); Blood Urea Nitrogen 9 mg/dL (9-23); Calcium 9.5 mg/dL (8.3-10.6); Calcium (Corrected) 9.5 mg/dL (8.5-10.1); Carbon Dioxide 23.1 mMol/L (20.0-31.0); Chloride 98 mMol/L (98-107); Creatinine (Component) 0.9 mg/dL (0.6-1.3); Estimated Creatinine Clearance 38.8 mL/min (>60); Globulin 2.7 gm/dL (2.3-3.5); Glucose 192 mg/dL (74-106); Lipase 40 U/L (12-53); Osmolality,Calculated 270 (275-295); Potassium 3.1 mMol/L (3.4-5.1); Sodium 133 mMol/L (136-145); Total Protein 7.4 gm/dL (5.7-8.2); Troponin I < 0.020 ng/mL (0.0-0.045); eGFR > 60 See Note
[2025-02-22] MEDS: fentaNYL CIT INJ 50 mCg/ML AMP 2ML IVP ×2 (20:41→21:21)
--- NOTE | 2025-02-22 21:03 | XR_ITS ---
Examination:Right hip AP, lateral, AP pelvis 3 views Technique: Hip AP lateral, AP pelvis, 3 views Exam date and time:February 22, 20258 hours INDICATIONS: Patient fell today with injury to the right hip, right hip pain FINDINGS: Acute intertrochanteric fracture right hip Avulsion of the lesser trochanter Left hip bones of the pelvis and direct IMPRESSION: Acute intertrochanteric fracture right hip.
--- NOTE | 2025-02-22 21:07 | XR_ITS ---
Examination: Right femur 2 views TECHNIQUE: Right femur 2 views AP lateral Date and time: February 22, 2025 2142 hours INDICATIONS: Patient fell today with injury to the femur, femur pain. FINDINGS: Acute intertrochanteric fracture right hip Avulsion of the lesser trochanter Shaft of the femur intact IMPRESSION: Acute intertrochanteric fracture right hip
--- NOTE | 2025-02-22 21:08 | XR_ITS ---
Examination: Knee, right , 3 views Technique: Knee AP, lateral, oblique 3 views Date and time of exam: February 22, 2025 2128 hours INDICATIONS: Patient fell today with injury of the knee, knee pain. FINDINGS: No fracture or dislocation. No foreign body IMPRESSION: No fracture or dislocation
[2025-02-22] MEDS: ONDANSETRON INJ 2 MG/ML INJ 2 ML 4 MG IV (21:21)
[2025-02-22 21:25] VITALS: BP 162/74; PULSE 68; RESP 18; TEMP 36.4; O2SAT 96
[2025-02-22 22:53] VITALS: BP 157/64; PULSE 69; RESP 18; TEMP 37.1; O2SAT 96
[2025-02-22 23:03] LABS: Reflex Lactate? Y
--- NOTE | 2025-02-22 23:12 | XR_ITS ---
Examination:Right hip lateral to views Technique: Hip right lateral 2 views Exam date and time:February 22, 2025 at 11:29 PM INDICATION: Patient fell today with fracture radiograph AP right hip pelvis films FINDINGS: Lateral films are insufficiently penetrated. IMPRESSION: Lateral films are insufficiently penetrated, consider CT scan right hip for best assessment of the right hip fracture as clinically warranted
[2025-02-22 23:34] LABS: Lactic Acid, 3 HR 2.9 mMol/L (0.4-2.0)
--- NOTE | 2025-02-22 23:46 | ESHP_ITS ---
<Statement entered by Jeff Vargas MD - 02/23/25 06:34> I have discussed and was present for the essential components of the history, physical examination, diagnosis, and treatment plan with the resident. I agree with the patient's care as documented by the resident and amended herein by me. Jeff Vargas MD FACP. Documentation for date of: 02/22/25 HPI History of Present Illness History of present illness: The patient is a 74-year-old female with a past medical history of CVA, DVT, coronary artery disease status post PCI , diabetes mellitus, hyperlipidemia and hypertension who came to the ER after mechanical fall. Patient reported that after the stroke he has some residual weakness in her right side but is able to ambulate independently, she currently lives with her boyfriend Jasbir, and tried to open the door off her apartment, but her dog ran between her legs and she tripped and fell. Denied passing out, but did report hitting her head on the floor. Patient has a history of CVA and DVT, was prescribed Eliquis in 2023, but the patient does not know her active medications, is not sure if she is on any blood thinners at this moment, ER tried to call patient's boyfriend Jasbir, but unable to reach him. Denied seizures, loss of consciousness,. Denies any chest pain or shortness of breath. In the ER patient initial vitals BP 202/80, saturating 97% on room air, respiratory 18, pulse 76, CT head negative for acute hemorrhage mass effect or midline shift, CT cervical spine showed no acute fracture, x-ray hip showed acute intertrochanteric fracture of right hip. ER consulted orthopedic surgeon Dr. Salcedo who recommended admission. Given patient's multiple risk factors and history of cardiac disease and CVAs, will get consult cardiology for cardiac clearance. Review of Systems Review of Systems Systems Reviewed: All systems reviewed, normal except as documented Past Medical History Past Medical History NEUROLOGIC: Positive Neurological Disorders, Cerebrovascular Accident, Transient Ischemic Attacks (TIA) and Paralysis; Negative Seizures CARDIAC: Positive Coronary Artery Disease, Hypercholesterolemia and Hypertension; Negative Cardiac Disorders or Congestive Heart Failure RESPIRATORY: Positive Asthma and Pneumonia; Negative Chronic Obstructive Pulmonary Disease (COPD) GASTROINTESTINAL: Positive Gastrointestinal Disorders, Hiatal Hernia, Hemorrhoids and Gastroesophageal Reflux Disease GENITOURINARY: Negative Renal Disease REPRODUCTIVE: Positive Previous Pregnancies MUSCULOSKELETAL: Positive Musculoskeletal Disorders, Arthritis, Rheumatoid Arthritis and Degenerative Disk Disease ENDOCRINE: Positive Endocrine Disorders and Diabetes Mellitus Type 2; Negative Diabetes Mellitus Type 1 HEMATOLOGIC: Positive Blood Disorders and Anemia; Negative Sickle Cell Disease PSYCHO/SOCIAL: Positive Depression and Anxiety OTHER HISTORY: Positive Hospitalization; Negative Autoimmune Disease, Blood Transfusions, Blood Transfusion Reaction or Anesthesia Reactions Family History FAMILY HISTORY: Positive Family Psychiatric Problems, Family Respiratory Disorders, Family Cardiac Disorders, Family Surgery and Family Anesthesia Reaction; Negative Family Gastrointestinal Problems or Family Cancer Surgical History SURGICAL: Positive Coronary Stent, Angiogram, Hysterectomy and Tubal Ligation Social History SMOKING STATUS: Former smoker SECOND HAND EXPOSURE: No (smoking when young and only occassionally.) Exam Vital Signs Temp Pulse Resp BP Pulse Ox O2 Del Method 98.8 F 69 18 157/64 H 96 Room Air 02/22/25 22:53 02/22/25 22:53 02/22/25 22:53 02/22/25 22:53 02/22/25 22:53 02/22/25 22:53 Narrative Exam General: AOx3, cooperative in moderate distress due to pain, patient has her right lower extremity in flexed position, straightening it causes pain. Skin: Intact, no cyanosis or edema noted. HEENT: Atraumatic/normocephalic, [facility], neck supple Heart: RRR, S1 and S2 without clicks or murmurs Lungs: Clear on auscultation bilaterally, no difficulty breathing Abdomen: Soft, nontender. Bowel sounds present . Vascular: Peripheral pulses palpable Neuro: No focal neurological deficits noted. Results: Labs 02/23/25 03:06 02/23/25 03:06 Labs: Short CBC 02/22/25 Range/Units 19:55 WBC 16.3 H (3.6-11.0) Thou/mm3 Hgb 9.9 L (12.0-16.0) g/dL Hct 28.3 L (36.0-46.0) % Plt Count 224 D (140-440) Thou/mm3 BMP 02/22/25 19:55 Sodium 133 L Potassium 3.1 L Chloride 98 Carbon Dioxide 23.1 BUN 9 Creatinine 0.9 Glucose 192 H Calcium 9.5 Cardiac Enzymes 02/22/25 Range/Units 19:55 Troponin I < 0.020 (0.0-0.045) ng/mL Liver Function 02/22/25 Range/Units 19:55 Total Bilirubin 0.4 (0.3-1.2) mg/dL AST 24 (0-34) U/L ALT 19 (10-49) U/L Alkaline Phosphatase 59 (46-116) U/L Albumin 4.7 (3.4-4.8) gm/dL Quality Measures Quality Measures none Advance care planning discussed with:: patient Medications Home Medications and Allergies Home Medications ?Medication ?Instructions ?Recorded ?Confirmed ?Type acetaminophen 500 mg tablet (Mapap 500 mg PO Q8H PRN P ain 11/16/19 01/13/24 History Extra Strength) amlodipine 10 mg tablet 10 mg PO HS 11/16/19 4 History atenolol 25 mg tablet 12.5 mg PO QDAY 11/16/1909/24 History losartan 100 mg tablet 100 mg PO QDAY 11/16/1906/29 History potassium chloride 20 mEq 20 meq PO QDAY 11/16/1911/06 History tablet,extended release semaglutide 3 mg tablet 3 mg PO HS 11/16/19 11/17/19 History sertraline 50 mg tablet 50 mg PO QDAY 11/16/1911/17 History simvastatin 40 mg tablet (Zocor) 40 mg PO HS 11/16/19 11/17/19 History buspirone 10 mg tablet 10 mg PO DAILY 01/13/2406/29 History lidocaine HCl 4 % topical cream 1 applic topical PRN P RN Pain 01/13/24 01/13/24 History (Aspercreme (lidocaine HCl)) metformin 850 mg tablet 850 mg PO BIDWMEAL 01/13/24 01/13/24 History mirtazapine 7.5 mg tablet 7.5 mg PO HS 01/13/24 History Allergies Allergy/AdvReac Type Severity Reaction Status Date / Time POTASSIUM LIQUID Allergy Severe Anaphylaxis Uncoded 11/16/19 13:18 Visit Medications Discontinued Medications Fentanyl Citrate (Fentanyl Cit Inj 50 Mcg/Ml Amp 2ml) 50 mcg IVP X1 ONE Stop: 02/22/25 20:32 Last Admin: 02/22/25 20:41 Dose: 50 mcg Fentanyl Citrate (Fentanyl Cit Inj 50 Mcg/Ml Amp 2ml) 50 mcg IVP X1 ONE Stop: 02/22/25 21:09 Last Admin: 02/22/25 21:21 Dose: 50 mcg Ondansetron HCl (Ondansetron Inj 2 Mg/Ml Inj 2 Ml) 4 mg IV X1 ONE; Protocol Stop: 02/22/25 21:09 Last Admin: 02/22/25 21:21 Dose: 4 mg Assessment & Plan Plan The patient is a 74-year-old female with a past medical history of CVA, DVT, coronary artery disease status post PCI , diabetes mellitus, hyperlipidemia and hypertension who came to the ER after mechanical fall. ER consulted orthopedic surgeon Dr. Salcedo who recommended admission. Given patient's multiple risk factors and history of cardiac disease and CVAs, will get consult cardiology for cardiac clearance. #Acute intertrochanteric fracture of the right hip #Mechanical fall CT head negative for acute hemorrhage mass effect or midline shift, CT cervical spine showed no acute fracture, x-ray hip showed acute intertrochanteric fracture of right hip. ER consulted orthopedic surgeon Dr. Salcedo who recommended admission. Given patient's multiple risk factors and history of cardiac disease and CVAs, will get consult cardiology for cardiac clearance. EKG showed sinus rhythm, patient with history of DVT, was prescribed Eliquis last year, patient is unsure if she is taking any blood thinners at this moment. ? IV morphine 4 mg every 3 hours for pain ? Ordered echocardiogram ? Cardiology consult for cardiac clearance ? Orthopedic surgeon Dr. Salcedo is consulted #Leucocytosis, likely reactive Pt is afebrile, denies dysuria, cough or abd discomfort likely reactive leukocytosis - monitor daily cbc, if pt develops a fever, consider cultures, antibiotics. #History of DVT #History of CVA #History of coronary artery disease status post PCI in 2019 - pending med rec reconcilitation - Per documentation, likely PCI in 2019, will be holding antiplatelets and anticoagulation , in anticipation of surgery, - pending cardiac recs #History of diabetes mellitus - SSI - Low carb diet #History of hypertension - LV labetalol prn - Losartan 100mg qday Plan of care discussed with attending Dr Alicia Cornejo PGy 2
--- NOTE | 2025-02-22 23:52 | ECHO_ITS ---
Transthoracic Echo Report Ht (in): 60 Wt (lb): 114 Exam Location: Echo Lab Status: Inpatient General Teller: Filomena Fang Indications: Procedure Performed: BP: 117 / 52 HR: 70 Technical Quality: Technically difficult study MEASUREMENTS (Male / Female) Normal Values 2D ECHO LV Diastolic Diameter PLAX 4.2 cm 4.2 - 5.9 / 3.9 - 5.3 cm LV Systolic Diameter PLAX 2.5 cm IVS Diastolic Thickness 0.8 cm 0.6 - 1.0 / 0.6 - 0.9 cm LVPW Diastolic Thickness 1.0 cm 0.6 - 1.0 / 0.6 - 0.9 cm LV Relative Wall Thickness 0.4 LVOT Diameter 1.7 cm Aortic Root Diameter 2.3 cm LA Systolic Diameter LX 2.9 cm 3.0 - 4.0 / 2.7 - 3.8 cm LA Volume Index 27.9 cm?/m? 16 - 28 cm?/m? M-MODE Aortic Root Diameter MM 2.2 cm LA Systolic Diameter MM 3.2 cm LA Ao Ratio MM 1.5 AV Cusp Separation MM 1.4 cm DOPPLER AV Peak Velocity 216.5 cm/s AV Peak Gradient 18.7 mmHg AV Mean Gradient 7.0 mmHg AV Velocity Time Integral 36.3 cm LVOT Peak Velocity 112.0 cm/s LVOT Peak Gradient 5.0 mmHg LVOT Velocity Time Integral 25.1 cm LVOT Cardiac Index 2684.7 cm?/min?m? AV Area Cont Eq vti 1.6 cm? AV Area Cont Eq pk 1.2 cm? MV Area PHT 3.3 cm? Mitral E Point Velocity 58.2 cm/s Mitral A Point Velocity 87.3 cm/s Mitral E to A Ratio 0.7 LV E' Lateral Velocity 7.1 cm/s Mitral E to LV E' Lateral Ratio 8.2 LV E' Septal Velocity 6.2 cm/s Mitral E to LV E' Septal Ratio 9.4 PV Peak Velocity 97.7 cm/s PV Peak Gradient 3.8 mmHg FINDINGS Left Ventricle Normal left ventricular size, wall thickness, systolic function with no obvious regional wall motion abnormalities.there is grade I diastolic dysfunction of the left ventricle (impaired relaxation pattern). The ejection fraction is visually estimated at 65%. Right Ventricle The right ventricle is normal in size and systolic function. Left Atrium The left atrium is normal by two-dimensional, color flow and Doppler imaging with no structural abnormalities, no thrombus formation present. Right Atrium The right atrium is normal by two-dimensional imaging, color flow and Doppler imaging with no structural abnormalities, no thrombus formation present. Atrial Septum The interatrial septum appears normal with no evidence of a shunt. Aorta The aorta is normal by two-dimensional, color flow and Doppler interrogation. Mitral Valve The mitral valve is normal by two-dimensional, color flow and Doppler interrogation. There is no significant mitral valve regurgitation, stenosis or prolapse. Aortic Valve The aortic valve is trileaflet and normal by two-dimensional, color flow and Doppler interrogation. There is no significant aortic valve regurgitation. Tricuspid Valve The tricuspid valve is normal by two-dimensional, color flow and Doppler interrogation. There is trace tricuspid valve regurgitation. Pulmonic Valve The pulmonic valve is not well visualized. There is no significant pulmonic valve regurgitation. Vessels The pulmonary artery appears normal. The inferior vena cava pulmonary and hepatic veins appear normal. Pericardium The pericardium is normal by two-dimensional imaging. There is no significant pericardial effusion. CONCLUSIONS Indication: Cardiac Clearance The transthoracic study is normal by two-dimensional, color flow imaging and Doppler interrogation. Normal left ventricular size and function. Estimated EF 65%. The RV is normal in size and systolic function. Trace TR. Shannon Joseph (Electronically Signed) Final Date: 25 Feb 2025 08:50
[2025-02-23] VITALS (15 sets, daily range): BP systolic 130–192; BP diastolic 65–98; PULSE 70–90; RESP 14–95; TEMP 36.1–37; O2SAT 17–100; BMI 21.8
[2025-02-23] MEDS: ONDANSETRON INJ 2 MG/ML INJ 2 ML 4 MG IV (00:14)
[2025-02-23] MEDS: MORPHINE SULF INJ 10 MG/ML VIAL 4 MG IVP ×3 (00:15→10:19)
--- NOTE | 2025-02-23 01:14 | XR_ITS ---
Examination: AP chest single view TECHNIQUE: AP portable semiupright chest single view Date and time: February 23, 2025, 0254 hours INDICATIONS: Preop chest x-ray, hip fracture last night, patient also states shortness of breath this week. FINDINGS: Mild prominence left ventricle. No pneumonia or pulmonary edema. Severe osteopenia. Old deformity left clavicle IMPRESSION: No active disease
[2025-02-23] MEDS: POTASSIUM CHLORIDE 20 mEq TABCR 40 MEQ PO (01:21)
[2025-02-23] MEDS: RINGERS LACTATED 1000 ML 1,000 ML 999 ML IV (02:20)
[2025-02-23 02:24] LABS: Collection Type, Urine Catheter
[2025-02-23 02:33] LABS: Bilirubin,Urine Negative (Negative); Blood,Urine 3+ (Negative); Clarity,Urine Turbid (Clear/Hazy); Color,Urine Yellow (Lt Yel-Yel); Glucose, Urine Trace (Negative); Hyaline Casts,Urine 1 /hpf (0-1); Ketones,Urine 1+ (Negative); Leukocyte Esterase,Urine Positive (Negative); Nitrite,Urine Negative (Negative); PH,Urine 5.5 (5.0-7.0); Protein,Urine 1+ (Neg - Trace); RBC,Urine 219 /hpf (0-3); Squamous Epithelial Cell,Urine < 1 /hpf (0-5); Urobilinogen,Urine Negative mg/dL (0.0-1.0); WBC,Urine 736 /hpf (0-5)
[2025-02-23 02:47] LABS: Amphetamine/Methamp Scrn,U Negative (Negative); Barbiturate Screen,Urine Negative (Negative); Benzodiazepines Screen,Urine Negative (Negative); Benzoylecgonine Screen, Ur Negative (Negative); Fentanyl Screen,Urine Positive (Negative); Opiate Screen,Urine Negative (Negative); THC Screen,Urine Negative (Negative)
[2025-02-23 03:22] LABS: Lactate (Lactic Acid) 2.9 mMol/L (0.4-2.0)
[2025-02-23 03:23] LABS: Basophils % (Auto) 0 % (0-2.5); Eosinophils % (Auto) 0 % (0-10); Immature Granulocytes % (Auto) 1 % (0-0); Immature Granulocytes Auto 0.08 Thou/mm3 (0.00-0.00); Lymphocytes # (Auto) 1.1 Thou/mm3 (1.0-4.8); Lymphocytes % (Auto) 7 % (10-50); Mean Corpuscular HGB Conc 35.2 g/dl (31.0-37.0); Mean Corpuscular Hemoglobin 27.3 pg (25.0-35.0); Mean Corpuscular Volume 78 fL (80-100); Monocytes # (Auto) 0.5 Thou/mm3 (0.0-0.8); Monocytes % (Auto) 3 % (0-12); Neutrophils # (Auto) 14.6 Thou/mm3 (1.8-7.7); Neutrophils % (Auto) 89 % (37-80); Nucleated Red Blood Cell % 0 /100 WBC (0); Platelet Count 211 Thou/mm3 (140-440); RDW Standard Deviation 41.5 fL (36.4-46.3); Red Blood Count 3.22 Miln/mm3 (4.00-5.20); White Blood Count 16.3 Thou/mm3 (3.6-11.0)
[2025-02-23 03:25] LABS: Hemoglobin 8.8 g/dL (12.0-16.0)
[2025-02-23 03:36] LABS: INR 1.1 (0.9-1.3); Prothrombin Time 11.8 Seconds (9.0-12.2)
[2025-02-23 03:41] LABS: Glucose Estimated Average 143 mg/dL (80-131); Hemoglobin A1C 6.6 % Hgb (4.8-6.0)
[2025-02-23 03:48] LABS: Alanine Aminotransferase 15 U/L (10-49); Albumin, Serum 4.4 gm/dL (3.4-4.8); Alkaline Phosphatase 53 U/L (46-116); Anion Gap 12 (7-16); Aspartate Amino Transferase 18 U/L (0-34); BUN/Creatinine Ratio 12 Ratio (12-20); Bilirubin,Direct 0.2 mg/dL (0.0-0.3); Bilirubin,Total 0.6 mg/dL (0.3-1.2); Blood Urea Nitrogen 11 mg/dL (9-23); Calcium 8.9 mg/dL (8.3-10.6); Carbon Dioxide 24.7 mMol/L (20.0-31.0); Cardiac Risk Estimate 3.2 RATIO (3.7-5.6); Chloride 99 mMol/L (98-107); Cholesterol 118 mg/dL (132-200); Creatinine (Component) 0.9 mg/dL (0.6-1.3); Estimated Creatinine Clearance 38.8 mL/min (>60); Glucose 271 mg/dL (74-106); HDL Cholesterol 37 mg/dL (40-60); LDL Cholesterol,Calculated 59 mg/dL (0-130); Magnesium 1.5 mg/dL (1.6-2.6); Osmolality,Calculated 281 (275-295); Phosphorous 4.1 mg/dL (2.4-5.1); Potassium 3.8 mMol/L (3.4-5.1); Sodium 136 mMol/L (136-145); Thyroid Stimulating Hormone 1.61 uIU/mL (0.55-4.78); Total Protein 6.9 gm/dL (5.7-8.2); Triglycerides 112 mg/dL (30-150); eGFR > 60 See Note
--- NOTE | 2025-02-23 05:44 | PC.NURSE ---
SPOKE WITH PTS SIGNIFICANT OTHER, ALLISON, WHO STATES HE WILL BRING PATIENTS HOME MEDICATIONS 02/23/25 AFTER 5PM FOR MEDICATION RECONCILIATION.
[2025-02-23 06:21] LABS: Reflex Lactate? Y
[2025-02-23 08:07] LABS: Lactic Acid, 3 HR 2.8 mMol/L (0.4-2.0)
--- NOTE | 2025-02-23 08:26 | EKG_ITS ---
[facility] Test Date: 2025-02-23 Pat Name: UZMA MENDOZA [facility] [place] Examiner: APOLINAR : 1950 Requested By: Carlito Locke Order Number: [id number] Reading MD: Carlito Locke Measurements Intervals [place] Rate: 81 P: 75 CA: 152 QRS: -3 QRSD: 82 T: 24 QT: 379 QTc: 440 Interpretive Statements SINUS RHYTHM WITH OCCASIONAL VENTRICULAR PREMATURE COMPLEXES SEPTAL MYOCARDIAL INFARCTION , OF INDETERMINATE AGE Compared to ECG 10/08/2024 03:30:20 Ventricular premature complex(es) now present Myocardial infarct finding now present T-wave abnormality no longer present /store/S0/[id number]/ecg/[id number].pdf
[2025-02-23] MEDS: Magnesium Sulfate 2 GM Ivpb 2 GM/50 ML BAG IV (08:30)
[2025-02-23] MEDS: LOSARTAN POTASSIUM 25 MG TABLET 100 MG PO (08:30)
[2025-02-23 08:40] LABS: B-Type Natriuretic Peptide 161 pg/mL (0-100)
--- NOTE | 2025-02-23 09:43 | PC.SS ---
Initial assessment: patient is a 74 year old female admitted for hip fracture. Patient resides at home with significant other, Noé Gatica. Patient confirmed demographic information. Patient's significant other Noé to be contacted for emergencies. Patient has the following DME at home: walker and wheelchair. Patient requires some assistance with ADL's. Patient denies having a PCP at this time, was previously seen by Geno Suazo in [facility]. Patient agreeable with SNF placement, preferred is [facility] as she was previously there. Patient will need transportation services upon discharge. D/c plan: SNF Next of kin: significant other, Noé
--- NOTE | 2025-02-23 09:54 | PC.SS ---
Addendum entered by DIONISIO Tapia 02/23/25 09:58: PASRR completed. LV2, pending closure. Original Note: SS update: sent SNF inquiry via [employer]. Awaiting responses. Patient pending orthopedic consultation.
--- NOTE | 2025-02-23 10:39 | PD.SUROPNT ---
Date of Procedure 02/23/25 Surgeon Marco Salcedo MD Surgical Staff Operation Date: 02/23/25 16:45 <No data on this case meets the specified criteria>
--- NOTE | 2025-02-23 10:42 | PD.ORTHCON ---
HPI Consult details Reason for consultation narrative: right hip pain History of present illness: Patient Is a 74-year-old female baseline ambulator with no assistive device who had a fall yesterday when walking the dog. She presents to the ER after not being able to ambulate. She reports significant right hip pain. She has had multiple strokes in the past and is reportedly on Eliquis. She reports that she does not think she is on any blood thinners. She is a poor historian As she has poor short-term memory. She is AAO x 4 however. Meds Home Medications and Allergies Home Medications ?Medication ?Instructions ?Recorded ?Confirmed ?Type acetaminophen 500 mg tablet (Mapap 500 mg PO Q8H PRN Pain 11/16/19 01/13/24 History Extra Strength) amlodipine 10 mg tablet 10 mg PO HS 11/16/19 01/13/24 History atenolol 25 mg tablet 12.5 mg PO QDAY 11/16/19 11/17/19 History losartan 100 mg tablet 100 mg PO QDAY 11/16/19 01/13/24 History potassium chloride 20 mEq 20 meq PO QDAY 11/16/19 11/17/19 History tablet,extended release semaglutide 3 mg tablet 3 mg PO HS 11/16/19 11/17/19 History sertraline 50 mg tablet 50 mg PO QDAY 11/16/19 11/17/19 History simvastatin 40 mg tablet (Zocor) 40 mg PO HS 11/16/19 11/17/19 History buspirone 10 mg tablet 10 mg PO DAILY 01/13/24 01/13/24 History lidocaine HCl 4 % topical cream 1 applic topical PRN PRN Pain 01/13/24 01/13/24 History (Aspercreme (lidocaine HCl)) metformin 850 mg tablet 850 mg PO BIDWMEAL 01/13/24 01/13/24 History mirtazapine 7.5 mg tablet 7.5 mg PO HS 01/13/24 01/13/24 History Allergies Allergy/AdvReac Type Severity Reaction Status Date / Time POTASSIUM LIQUID Allergy Severe Anaphylaxis Uncoded 11/16/19 13:18 Exam Vital Signs Temp Pulse Resp BP Pulse Ox O2 Del Method 97.2 F 75 18 159/79 H 94 L Room Air 02/23/25 07:54 02/23/25 08:30 02/23/25 07:54 02/23/25 08:30 02/23/25 07:54 02/23/25 07:54 Additional findings Additional findings: Patient is in no acute distress and is cooperative with the examination today. Patient has a normal mood and affect. Breathing is nonlabored. In no respiratory distress. Bilateral extremities were evaluated and demonstrates sensation intact to light touch. Palpable pedal pulses are present. No significant edema is present. Right hip is shortened and externally rotated. Range of motion was not performed secondary to pain. She is tender over her hip. She is able to wiggle her toes and has positive EHL, FHL, plantarflexion, and dorsiflexion positive DP and PT pulses left hip is nontender to palpation and she has full range of motion x-rays of the right hip demonstrate a intertrochanteric fracture with avulsion of the lesser as well. Results - Ortho Labs 02/23/25 03:06 02/23/25 03:06 Labs: Short CBC 02/22/25 02/23/25 Range/Units 19:55 03:06 WBC 16.3 H 16.3 H (3.6-11.0) Thou/mm3 Hgb 9.9 L 8.8 L (12.0-16.0) g/dL Hct 28.3 L 25.0 L (36.0-46.0) % Plt Count 224 D 211 (140-440) Thou/mm3 BMP 02/22/25 02/23/25 19:55 03:06 Sodium 133 L 136 Potassium 3.1 L 3.8 D Chloride 98 99 Carbon Dioxide 23.1 24.7 BUN 9 11 Creatinine 0.9 0.9 Glucose 192 H 271 H D Calcium 9.5 8.9 Cardiac Enzymes 02/22/25 Range/Units 19:55 Troponin I < 0.020 (0.0-0.045) ng/mL Liver Function 02/22/25 02/23/25 Range/Units 19:55 03:06 Total Bilirubin 0.4 0.6 (0.3-1.2) mg/dL Direct Bilirubin 0.2 (0.0-0.3) mg/dL AST 24 18 (0-34) U/L ALT 19 15 (10-49) U/L Alkaline Phosphatase 59 53 (46-116) U/L Albumin 4.7 4.4 (3.4-4.8) gm/dL Urine 02/23/25 Range/Units 01:32 Urine Color Yellow (Lt Yel-Yel) Urine Clarity Turbid A (Clear/Hazy) Urine pH 5.5 (5.0-7.0) Ur Specific [place] 1.020 (1.001-1.035) Urine Protein 1+ A (Neg - Trace) Urine Glucose (UA) Trace (Negative) Assessment & Plan Problem List (1) Intertrochanteric fracture of right hip: Status: Acute Assessment and plan: Patient is a 74-year-old female with right hip pain and a right hip intertrochanteric fracture. We discussed cephalomedullary nail is a reasonable option. The patient is alert and oriented and is pretty with it but she has very poor short-term memory. She cannot recall whether she took her Eliquis yesterday or not. She also does not know what medication she is on. I discussed with her that this could delay surgery. I discussed with her that I would like for her to be off Eliquis for at least 24 hours prior to proceeding with surgery. We discussed the risk of surgically fracture, nonunion, infection, and medical complications including stroke especially she has a complex medical history. she understands the risks and is able to explain back to me what surgery is going on and states that she wants to perform this. We will need to track down her last dose of Eliquis. - plan for surgery today. If we do ths surgery in the afternoon, it will be at least 24 hours from her last dose that she will be in the hospital for longer than 24 hours. - pain control
--- NOTE | 2025-02-23 10:58 | CHAP ---
Prayed with patient about her upcoming procedure.
[2025-02-23] MEDS: INSULIN LISPRO (AdmeLOG) 1 UNIT/0.01 ML UNIT SC (11:27)
--- NOTE | 2025-02-23 13:10 | ESPR_ITS ---
Documentation for date of: 02/23/25 Subjective Subjective Interval history: Overnight admission. Seen and examined at bedside and patient states that she is in pain depending on her leg positioning but is controlled with current IV pain regimen. Patient states that she lives with her friend who helps her with her medications as she does not have much family in the area to help take care of her. Thus, she cannot recall which medications she is taking, including eliquis. Spoke to her data entry analyst, Dr. Morales, for cardiac clearance who states that she is stable for procedure and informed orthopedic surgeon, Dr. Salcedo. Exam Vital Signs Temp Pulse Resp BP Pulse Ox O2 Del Method 97.4 F 78 18 139/98 H 17 L Room Air 02/23/25 11:57 02/23/25 11:57 02/23/25 11:57 02/23/25 11:57 02/23/25 11:57 02/23/25 07:54 Narrative Exam General: AOx3, no acute distress, able to speak full sentences HEENT: NC/AT, mucous membranes moist, bilateral sclera anicteric Cardiovascular: regular rate and rhythm, S1/S2 present, no murmurs appreciated Pulmonary: clear to auscultation bilaterally, no rales/rhonchi/wheezes Abdominal: soft, non-tender, non-distended, no rebound/guarding, normal bowel sounds present Musculoskeletal: limited ROM of RLE, no peripheral edema Skin: warm and dry, intact, no rashes Neuro: slight tremor in right upper extremity Objective Labs 02/23/25 03:06 02/23/25 03:06 Labs: Laboratory Results - last 24 hr 02/22/25 02/22/25 02/23/25 19:55 23:23 01:30 WBC 16.3 H RBC 3.61 L Hgb 9.9 L Hct 28.3 L MCV 78 L MCH 27.4 MCHC 35.0 RDW Std Deviation 42.3 Plt Count 224 D Neut % (Auto) 86 H Lymph % (Auto) 9 L [place] % (Auto) 4 Eos % (Auto) 0 Baso % (Auto) 0 Neut # (Auto) 14.0 H Lymph # (Auto) 1.5 [place] # (Auto) 0.7 Eos # (Auto) 0.0 Baso # (Auto) 0.1 Immature Gran # (Auto) 0.08 H Absolute Nucleated RBC 0.00 Immature Gran % 1 H Nucleated RBC % 0 PT 11.4 INR 1.0 APTT 24.2 Sodium 133 L Potassium 3.1 L Chloride 98 Carbon Dioxide 23.1 Anion Gap 12 BUN 9 Creatinine 0.9 Estim Creat Clear Calc 38.8 L eGFR > 60 BUN/Creatinine Ratio 10 L Glucose [address] Glu mg/dL Hemoglobin A1c Calculated Osmolality 270 L Lactic Acid 3.2 H 2.9 H Calcium 9.5 Corrected Calcium 9.5 Phosphorus Magnesium Total Bilirubin 0.4 Direct Bilirubin AST 24 ALT 19 Alkaline Phosphatase 59 Troponin I < 0.020 B-Natriuretic Peptide Total Protein 7.4 Albumin 4.7 Globulin 2.7 Albumin/Globulin Ratio 1.7 Triglycerides Cholesterol LDL Cholesterol, Calc HDL Cholesterol Cholesterol/HDL Ratio Lipase 40 TSH Ur Collection Type Urine Color Urine Clarity Urine pH Ur Specific [place] Urine Protein Urine Glucose (UA) Urine Ketones Urine Blood Urine Nitrite Urine Bilirubin Urine Urobilinogen (Auto) Ur Leukocyte Esterase Urine RBC Urine WBC Ur Squamous Epith Cells Urine Bacteria Hyaline Casts Urine Opiates Screen Negative Urine Fentanyl Screen Positive A Ur Barbiturates Screen Negative U Amphetamin/Meth Scrn Negative U Benzodiazepines Scrn Negative U Cocaine Metab Screen Negative U Marijuana (THC) Screen Negative Ethyl Alcohol < 3.0 Blood Type B Positive Antibody Screen POSITIVE Antibody Identification Anti-K Crossmatch See Detail Blood Bank Wristband ID Yes 02/23/25 02/23/25 02/23/25 01:32 03:06 07:27 WBC 16.3 H RBC 3.22 L Hgb 8.8 L Hct 25.0 L MCV 78 L MCH 27.3 MCHC 35.2 RDW Std Deviation 41.5 Plt Count 211 Neut % (Auto) 89 H Lymph % (Auto) 7 L [place] % (Auto) 3 Eos % (Auto) 0 Baso % (Auto) 0 Neut # (Auto) 14.6 H Lymph # (Auto) 1.1 [place] # (Auto) 0.5 Eos # (Auto) 0.0 Baso # (Auto) 0.0 Immature Gran # (Auto) 0.08 H Absolute Nucleated RBC 0.00 Immature Gran % 1 H Nucleated RBC % 0 PT 11.8 INR 1.1 APTT Sodium 136 Potassium 3.8 D Chloride 99 Carbon Dioxide 24.7 Anion Gap 12 BUN 11 Creatinine 0.9 Estim Creat Clear Calc 38.8 L eGFR > 60 BUN/Creatinine Ratio 12 [address]ucose [address] Glu mg/dL 143 H Hemoglobin A1c 6.6 H Calculated Osmolality 281 Lactic Acid 2.9 H 2.8 H Calcium 8.9 Corrected Calcium Phosphorus 4.1 Magnesium 1.5 L Total Bilirubin 0.6 Direct Bilirubin 0.2 AST 18 ALT 15 Alkaline Phosphatase 53 Troponin I B-Natriuretic Peptide 161 H Total Protein 6.9 Albumin 4.4 Globulin Albumin/Globulin Ratio Triglycerides 112 Cholesterol 118 L LDL Cholesterol, Calc 59 HDL Cholesterol 37 L Cholesterol/HDL Ratio 3.2 L Lipase TSH 1.61 Ur Collection Type Catheter Urine Color Yellow Urine Clarity Turbid A Urine pH 5.5 Ur Specific [place] 1.020 Urine Protein 1+ A Urine Glucose (UA) Trace Urine Ketones 1+ A Urine Blood 3+ A Urine Nitrite Negative Urine Bilirubin Negative Urine Urobilinogen (Auto) Negative Ur Leukocyte Esterase Positive Urine RBC 219 H Urine WBC 736 H Ur Squamous Epith Cells < 1 Urine Bacteria None Hyaline Casts 1 Urine Opiates Screen Urine Fentanyl Screen Ur Barbiturates Screen U Amphetamin/Meth Scrn U Benzodiazepines Scrn U Cocaine Metab Screen U Marijuana (THC) Screen Ethyl Alcohol Blood Type Antibody Screen Antibody Identification Crossmatch Blood Bank Wristband ID Quality Measures Quality Measures none Advance care planning discussed with:: patient Assessment & Plan Assessment Current Active Medications: Generic Name Dose Route Start Last Admin Trade Name Alyce PRN Reason Stop Dose Admin Acetaminophen 650 mg 02/22/25 23:47 Acetaminophen 325 Mg Tablet PO 03/24/25 23:46 Q6H PRN PAIN OR FEVER > 101 Protocol Dextrose 25 ml 02/23/25 00:13 Dextrose 50%-Water Inj 50 Ml Syringe IV 03/25/25 00:12 Q15MIN PRN BG 50-70 responsive npo pt Dextrose 50 ml 02/23/25 00:13 Dextrose 50%-Water Inj 50 Ml Syringe IV 03/25/25 00:12 Q15MIN PRN BG <50 OR BG <70 & pt unresponsive Glucagon 1 mg 02/23/25 00:13 Glucagon Inj 1 Mg Vial IM Q15MIN PRN BG <70, and no IV access Insulin Human Lispro 0 unit 02/23/25 12:00 02/23/25 11:27 Insulin Lispro (Admelog) 1 Unit/0.01 Ml Unit SC 03/25/25 11:59 2 unit Q6HR PONCHO Administration Protocol Labetalol HCl 10 mg 02/23/25 00:12 Labetalol Inj 5 Mg/Ml Vial 20 Ml IVP 03/25/25 00:11 Q6HR PRN SBP>170 Losartan Potassium 100 mg 02/23/25 09:00 02/23/25 08:30 Losartan Potassium 25 Mg Tablet PO 03/25/25 08:59 100 mg QDAY PONCHO Administration Mirtazapine 7.5 mg 02/23/25 21:00 Mirtazapine 15 Mg Tablet PO 03/25/25 20:59 HS PONCHO Morphine Sulfate 1 mg 02/23/25 10:20 Morphine Sulf Inj 10 Mg/Ml Vial IVP 02/28/25 10:19 Q4HR PRN PAIN SCALE 4-10(Mod-Sev Ondansetron HCl 4 mg 02/22/25 23:47 02/23/25 00:14 Ondansetron Inj 2 Mg/Ml Inj 2 Ml IV 03/24/25 23:46 4 mg Q6H PRN Administration NAUSEA OR VOMITING Protocol Sennosides 2 tab 02/22/25 23:47 Senna Tablet PO 03/24/25 23:46 BID PRN CONSTIPATION Protocol Adolfo Dobson is a 74-year-old female with a past medical history of CVA, DVT, coronary artery disease status post PCI, type 2 diabetes mellitus, hyperlipidemia, and hypertension who presented after mechanical ground-level fall and found to have right-sided hip fracture on imaging. #Acute intertrochanteric fracture of the right hip #Mechanical fall CT head negative for acute hemorrhage mass effect or midline shift, CT cervical spine showed no acute fracture, x-ray hip showed acute intertrochanteric fracture of right hip. ER consulted orthopedic surgeon Dr. Salcedo who recommended admission. Given patient's multiple risk factors and history of cardiac disease and CVAs, will get consult cardiology for cardiac clearance. EKG showed sinus rhythm, history of DVT and prescribed Eliquis last year. Unsure if she is taking any blood thinners at this moment. ? Orthopedic surgeon, Dr. Salcedo, consulted ? Cardiology consult for cardiac clearance: cleared for procedure ? IV morphine 1 mg every q4h ? Ordered echocardiogram #Leucocytosis, likely reactive Patient is afebrile, denies dysuria, cough or abdominal discomfort and thus likely reactive leukocytosis ? Continue to monitor #History of DVT #History of CVA #History of coronary artery disease status post PCI in 2019 Attempted to contact patient's partner multiple times but unable to reach. ? Pending med rec #History of diabetes mellitus ? SSI ? Low carb diet #History of hypertension ? Labetolol 10 mg IV q6h PRN ? Losartan 100 mg daily Hospital management: Disposition: pending procedure and further ortho recs Diet: low carb diet Lines: PIV DVT prophylaxis: SCDs CODE STATUS: full code ----- Plan discussed with attending physician Dr. Zen Edmonds MD PGY-1 Internal Medicine Attending Provider Attestation/Addendum I attest that I was physically present for the evaluation, physical examination, lab and imaging review of the patient with the residents. I discussed the case with the residents and agree with the findings and plans of care as documented above. Patient is a 74 years old female with past medical history of CVA, DVT, CAD status post PCI, diabetes, hypertension, hide per lipidemia who was admitted overnight for management of acute intertrochanteric fracture of the right hip after a mechanical fall. At bedside today, she appears comfortable, states that her pain is controlled with analgesics as long as she is not moving. Discussed with orthopedics, patient has been planned for surgery today. Cardiology was consulted for clearance, patient was cleared for surgery. Patient planned for surgery this afternoon. Arturo Zaldivar MD
--- NOTE | 2025-02-23 13:24 | ESCONSULT_ITS ---
<Statement entered by Higinio Morales MD - 02/24/25 13:02> The patient is examined personally evaluate the patient he is known to me has history of CAD stent placement LAD about 15 years ago 2010 angiogram in 2019 was normal widely patent stents clinically doing fairly well she suffered a fracture of the hip recommend to have surgery patient is recommended to proceed with surgery patient had no complications she has been generally stable since last several years with negative cardiac workup. Evaluate the patient clinically stable EKG unremarkable will give cardiac clearance appears low cardiac risk for surgery agree with treatment plan recommendation and consultation report as documented by Dr. Blanchard PGY 2 HPI Data of Consult Requesting Physician: Arturo Zaldivar MD Admitting Provider: Jeff Vargas MD Attending Provider: Arturo Zaldivar MD Primary Care Provider: Physician No Primary/Family Consult Narrative Reason for consult: cardo clearance History of present illness: Patient is a 74 years old female with past medical history of CVA, DVT, CAD s/p PCI, type II diabetes mellitus, hyperlipidemia and hypertension who came to the ER after mechanical fall, right hip x-ray showed acute intertrochanteric fracture of right hip, ER consulted orthopedic surgeon Dr. Salcedo who recommended admission and ORIF, cardiology was consulted for cardiac clearance. Patient was seen and examined at the bedside. She reports some minor pain in her right hip but otherwise feeling fine. She reports that she was going up stairs at her home when her dog squeezed between her her legs making her tripping and falling on her left side. She also reports that she injured her head while falling against the wall. Head CT and cervical CT were negative for acute fractures or hemorrhage. She denies any chest pain or pressure, shortness of breath. She does not have any lower extremities edema. Her echo was done in 2022 in office showed ejection fraction 65% with minor diastolic dysfunction. Patient was evaluated by Dr. Salcedo orthopedic surgeon today and is planned to do ORIF today. She is cleared by cardiology to proceed with surgery. In 01/2024 patient was found to have nonocclusive thrombus in the left peroneal vein and was started on Eliquis and continues taking and since then. Recommended to hold Eliquis in setting of upcoming surgery. cc:: cc: Arturo Zaldivar MD Review of Systems Review of Systems Systems Reviewed: All systems reviewed, normal except as documented Exam Vital Signs Temp Pulse Resp BP Pulse Ox O2 Del Method 97.4 F 78 18 139/98 H 17 L Room Air 02/23/25 11:57 02/23/25 11:57 02/23/25 11:57 02/23/25 11:57 02/23/25 11:57 02/23/25 07:54 Narrative Exam Gen: Well-developed and well-nourished. HEENT: NCAT, PERRLA, EOMI, MMM, anicteric conjunctivae. CVS: normal S1 and S2. RRR. No M/R/G. Resp: CTA B/L. No rhonchi, rales, crackles or wheezing. Abd: soft, non-tender, non-distended. BS+ in all 4 quadrants. MSK: Good ROM in BUE. No edema or rash. Right leg appears shortened and externally rotated, tender to ROM. Neuro: CN II-XII grossly intact. Strength 5/5 in BUE. Alert and oriented x3. Psych: appropriate mood and affect. Results Labs 02/23/25 03:06 02/23/25 03:06 Labs: Short CBC 02/22/25 02/23/25 Range/Units 19:55 03:06 WBC 16.3 H 16.3 H (3.6-11.0) Thou/mm3 Hgb 9.9 L 8.8 L (12.0-16.0) g/dL Hct 28.3 L 25.0 L (36.0-46.0) % Plt Count 224 D 211 (140-440) Thou/mm3 BMP 02/22/25 02/23/25 19:55 03:06 Sodium 133 L 136 Potassium 3.1 L 3.8 D Chloride 98 99 Carbon Dioxide 23.1 24.7 BUN 9 11 Creatinine 0.9 0.9 Glucose 192 H 271 H D Calcium 9.5 8.9 Cardiac Enzymes 02/22/25 Range/Units 19:55 Troponin I < 0.020 (0.0-0.045) ng/mL Liver Function 02/22/25 02/23/25 Range/Units 19:55 03:06 Total Bilirubin 0.4 0.6 (0.3-1.2) mg/dL Direct Bilirubin 0.2 (0.0-0.3) mg/dL AST 24 18 (0-34) U/L ALT 19 15 (10-49) U/L Alkaline Phosphatase 59 53 (46-116) U/L Albumin 4.7 4.4 (3.4-4.8) gm/dL Urine 02/23/25 Range/Units 01:32 Urine Color Yellow (Lt Yel-Yel) Urine Clarity Turbid A (Clear/Hazy) Urine pH 5.5 (5.0-7.0) Ur Specific [place] 1.020 (1.001-1.035) Urine Protein 1+ A (Neg - Trace) Urine Glucose (UA) Trace (Negative) Quality Measures Quality Measures none Advance care planning discussed with:: patient Medications Home Medications and Allergies Home Medications ?Medication ?Instructions ?Recorded ?Confirmed ?Type acetaminophen 500 mg tablet (Mapap 500 mg PO Q8H PRN P ain 11/16/19 01/13/24 History Extra Strength) amlodipine 10 mg tablet 10 mg PO HS 11/16/19 4 History atenolol 25 mg tablet 12.5 mg PO QDAY 11/16/1909/24 History losartan 100 mg tablet 100 mg PO QDAY 11/16/1906/29 History potassium chloride 20 mEq 20 meq PO QDAY 11/16/1911/06 History tablet,extended release semaglutide 3 mg tablet 3 mg PO HS 11/16/19 11/17/19 History sertraline 50 mg tablet 50 mg PO QDAY 11/16/1911/17 History simvastatin 40 mg tablet (Zocor) 40 mg PO HS 11/16/19 11/17/19 History buspirone 10 mg tablet 10 mg PO DAILY 01/13/2406/29 History lidocaine HCl 4 % topical cream 1 applic topical PRN P RN Pain 01/13/24 01/13/24 History (Aspercreme (lidocaine HCl)) metformin 850 mg tablet 850 mg PO BIDWMEAL 01/13/24 01/13/24 History mirtazapine 7.5 mg tablet 7.5 mg PO HS 01/13/24 History Allergies Allergy/AdvReac Type Severity Reaction Status Date / Time POTASSIUM LIQUID Allergy Severe Anaphylaxis Uncoded 11/16/19 13:18 Visit Medications Acetaminophen (Acetaminophen 325 Mg Tablet) 650 mg PO Q6H PRN; Protocol PRN Reason: PAIN OR FEVER > 101 Stop: 03/24/25 23:46 Dextrose (Dextrose 50%-Water Inj 50 Ml Syringe) 25 ml IV Q15MIN PRN PRN Reason: BG 50-70 responsive npo pt Stop: 03/25/25 00:12 Dextrose (Dextrose 50%-Water Inj 50 Ml Syringe) 50 ml IV Q15MIN PRN PRN Reason: BG <50 OR BG <70 & pt unresponsive Stop: 03/25/25 00:12 Glucagon (Glucagon Inj 1 Mg Vial) 1 mg IM Q15MIN PRN PRN Reason: BG <70, and no IV access Insulin Human Lispro (Insulin Lispro (Admelog) 1 Unit/0.01 Ml Unit) 0 unit SC Q6HR PONCHO; Protocol Stop: 03/25/25 11:59 Last Admin: 02/23/25 11:27 Dose: 2 unit Labetalol HCl (Labetalol Inj 5 Mg/Ml Vial 20 Ml) 10 mg IVP Q6HR PRN PRN Reason: SBP>170 Stop: 03/25/25 00:11 Losartan Potassium (Losartan Potassium 25 Mg Tablet) 100 mg PO QDAY PONCHO Stop: 03/25/25 08:59 Last Admin: 02/23/25 08:30 Dose: 100 mg Mirtazapine (Mirtazapine 15 Mg Tablet) 7.5 mg PO HS PONCHO Stop: 03/25/25 20:59 Morphine Sulfate (Morphine Sulf Inj 10 Mg/Ml Vial) 1 mg IVP Q4HR PRN PRN Reason: PAIN SCALE 4-10(Mod-Sev Stop: 02/28/25 10:19 Ondansetron HCl (Ondansetron Inj 2 Mg/Ml Inj 2 Ml) 4 mg IV Q6H PRN; Protocol PRN Reason: NAUSEA OR VOMITING Stop: 03/24/25 23:46 Last Admin: 02/23/25 00:14 Dose: 4 mg Sennosides (Senna Tablet) 2 tab PO BID PRN; Protocol PRN Reason: CONSTIPATION Stop: 03/24/25 23:46 Discontinued Medications Fentanyl Citrate (Fentanyl Cit Inj 50 Mcg/Ml Amp 2ml) 50 mcg IVP X1 ONE Stop: 02/22/25 20:32 Last Admin: 02/22/25 20:41 Dose: 50 mcg Fentanyl Citrate (Fentanyl Cit Inj 50 Mcg/Ml Amp 2ml) 50 mcg IVP X1 ONE Stop: 02/22/25 21:09 Last Admin: 02/22/25 21:21 Dose: 50 mcg Lactated Ringer's (Lactated Ringers) 1,000 mls @ 999 mls/hr IV .Q1H1M ONE Stop: 02/23/25 02:24 Last Admin: 02/23/25 02:20 Dose: 999 mls/hr Magnesium Sulfate (Magnesium Sulfate Ivpb) 2 gm in 50 mls @ 25 mls/hr IV X1 ONE Stop: 02/23/25 09:36 Last Admin: 02/23/25 08:30 Dose: 25 mls/hr Insulin Human Lispro (Insulin Lispro (Admelog) 1 Unit/0.01 Ml Unit) 0 unit SC AC PONCHO; Protocol Stop: 03/25/25 07:29 Last Admin: 02/23/25 07:45 Dose: Not Given Insulin Human Lispro (Insulin Lispro (Admelog) 1 Unit/0.01 Ml Unit) 0 unit SC AC PONCHO; Protocol Stop: 03/25/25 07:29 Morphine Sulfate (Morphine Sulf Inj 10 Mg/Ml Vial) 4 mg IVP Q3HR PRN PRN Reason: PAIN SCALE 4-10(Mod-Sev Last Admin: 02/23/25 10:19 Dose: 4 mg Ondansetron HCl (Ondansetron Inj 2 Mg/Ml Inj 2 Ml) 4 mg IV X1 ONE; Protocol Stop: 02/22/25 21:09 Last Admin: 02/22/25 21:21 Dose: 4 mg Potassium Chloride (Potassium Chloride 20 Meq Tabcr) 40 meq PO X1 ONE Stop: 02/23/25 00:49 Last Admin: 02/23/25 01:21 Dose: 40 meq Assessment & Plan Plan Patient is a 74 years old female with past medical history of CVA, DVT, CAD s/p PCI, type II diabetes mellitus, hyperlipidemia and hypertension who came to the ER after mechanical fall, right hip x-ray showed acute intertrochanteric fracture of right hip, ER consulted orthopedic surgeon Dr. Salcedo who recommended admission and ORIF, cardiology was consulted for cardiac clearance. #Intertrochanteric fracture of right hip. #Ground level fall. - right hip x-ray showed acute intertrochanteric fracture of right hip. - ER consulted orthopedic surgeon Dr. Salcedo who recommended admission and ORIF. - Echo from 2022 showed ejection fraction 65% with minor diastolic dysfunction. - RCRI 2 points: History of CAD and CVA. Creatinine 0.8, not on insulin therapy at home. Low risk surgery. METs > 4. Plan: - cleared for ORIF today. - Hold Eliquis. #CAD s/p PCI. #Hx of CVA. #HLD. - Patient reported stent placement in 2009 and does not take aspirin or clopidogrel. - Angiography in 2019 showed no coronary lesions, open stent. Plan: - resume home atorvastatin after surgery. #HTN. - At home taking amlodipine, atenolol, losartan. Plan: - resume home medications after surgery. #DVT. - In 01/2024 patient was found to have nonocclusive thrombus in the left peroneal vein and was started on Eliquis and continues taking and since then. Plan: - Hold Eliquis in setting of upcoming surgery. Plan of care discussed with attending Dr. Morales. Santo Sims MD, PGY 2. Disclaimer: This note was dictated by speech recognition. Minor errors in fourdrinier tender may be present due to voice recognition software.
--- NOTE | 2025-02-23 14:39 | PC.SS ---
Addendum entered by DIONISIO Tapia 02/23/25 14:59: Presented SNF choices, patient selected [facility]. Patient pending ortho surgery and PT evaluation. Original Note: Rounding note: patient scheduled for orthopedic surgery today. Plan is to d/c to SNF. Patient will require insurance authorization.
--- NOTE | 2025-02-23 16:30 | XR_ITS ---
Examination: Right femur AP lateral 8 views Fluoroscopy Date and time: February 23, 2025 1843 hours INDICATIONS: Acute intertrochanteric fracture right hip February 22, 2025, operative reduction internal fixation today TECHNIQUE AND FINDINGS: 8 spot AP lateral fluoroscopic films of the femur Fluoroscopy 50 seconds radiation dose 4.88 mg Operative reduction internal fixation right hip fracture with satisfactory alignment Orthopedic satisfactory position IMPRESSION: Operative reduction internal fixation right hip fracture with satisfactory alignment
--- NOTE | 2025-02-23 18:29 | PD.SUROPNT ---
Date of Procedure 02/23/25 Pre Op Diagnosis right hip intertrochanteric fracture Post Op Diagnosis right hip intertrochanteric fracture Procedure right hip cephalomedullary nail Findings intertrochanteric fracture Procedure Description Indications Patient is a pleasant 74 yo female with a ground level fall. We discussed operative treatment with a cephalomedullary nail given the intertrochanteric fracture. We Discussed nonoperative and operative options. She understands the risk of surgery, including infection, nonunion, malunion, hardware failure, and medical complications including , and would like to proceed with surgery Procedure in detail The patient was brought to the [place] table and was prepped and draped in the usual sterile fashion. We first obtained prereduction fluoroscopy films. We reduced it with traction and gentle internal rotation. Once an adequate reduction was performed, the patient was prepped and draped in usual sterile fashion. A surgical timeout was then performed. A trochanteric starting point was found and an entry wire was inserted followed by an opening reamer. We then inserted a 10 mm 130 degrees intermediate TFNA nail into the femur and ensured that it was reduced. We then inserted a wire into the 130 degree holding the jig and try to ensure that was center center on both the AP and lateral films. We then used a drill and inserted a helical blade. We ensured on both AP and lateral fluoroscopy views that we were in good position. We then used the static interlock screw. The patient was closed in the usual sterile fashion with Vicryl and Monocryl. Patient is to be weightbearing as tolerated Plan: WBAT Resume dvt ppx PT/OT Implants tfn [id number] TFNA 130 degrees, 85 helical, 5x30mm locking screw Pathology / specimen None Pathology comment: none Estimated Blood Loss 50 Surgeon Marco Salcedo MD Surgical Staff Operation Date: 02/23/25 16:45 Case Staff Anesthesiologist: Roldan Diehl RNmerchandise flow team member: Capri Narayanan
--- NOTE | 2025-02-23 18:56 | SUR.PHASEI ---
1848 To PACU able to lift head off of pillow, following simple commands no complaints,continue to monitor pt vital signs and status.
--- NOTE | 2025-02-23 19:45 | SUR.PHASEI ---
1849 Pt blood pressure elevated anesthesia at bedside medicating. 1909 Blood pressure with in pre surgery limits, anaesthesia aware, no s/s of distress noted. 1939 Transfer to room 353 in stable condition no complaints, no s/s of distress noted no change to right hip dressing.
[2025-02-24] VITALS (20 sets, daily range): BP systolic 94–147; BP diastolic 52–81; PULSE 70–118; RESP 16–96; TEMP 36.1–37; O2SAT 95–98
[2025-02-24 05:52] LABS: Basophils % (Auto) 0 % (0-2.5); Eosinophils % (Auto) 0 % (0-10); Hematocrit 20.3 % (36.0-46.0); Immature Granulocytes % (Auto) 1 % (0-0); Immature Granulocytes Auto 0.09 Thou/mm3 (0.00-0.00); Lymphocytes # (Auto) 0.9 Thou/mm3 (1.0-4.8); Lymphocytes % (Auto) 8 % (10-50); Mean Corpuscular HGB Conc 33.5 g/dl (31.0-37.0); Mean Corpuscular Hemoglobin 27.6 pg (25.0-35.0); Mean Corpuscular Volume 83 fL (80-100); Monocytes # (Auto) 0.8 Thou/mm3 (0.0-0.8); Monocytes % (Auto) 7 % (0-12); Neutrophils # (Auto) 10.4 Thou/mm3 (1.8-7.7); Neutrophils % (Auto) 85 % (37-80); Nucleated Red Blood Cell % 0 /100 WBC (0); Platelet Count 176 Thou/mm3 (140-440); RDW Standard Deviation 46.7 fL (36.4-46.3); Red Blood Count 2.46 Miln/mm3 (4.00-5.20); White Blood Count 12.2 Thou/mm3 (3.6-11.0)
[2025-02-24 05:59] LABS: Hemoglobin 6.8 g/dL (12.0-16.0)
[2025-02-24 06:17] LABS: Anion Gap 13 (7-16); BUN/Creatinine Ratio 13 Ratio (12-20); Blood Urea Nitrogen 14 mg/dL (9-23); Calcium 8.8 mg/dL (8.3-10.6); Carbon Dioxide 24.3 mMol/L (20.0-31.0); Chloride 98 mMol/L (98-107); Creatinine (Component) 1.1 mg/dL (0.6-1.3); Estimated Creatinine Clearance 31.7 mL/min (>60); Glucose 318 mg/dL (74-106); Osmolality,Calculated 282 (275-295); Potassium 4.1 mMol/L (3.4-5.1); Sodium 135 mMol/L (136-145); eGFR 52 See Note
[2025-02-24] MEDS: LOSARTAN POTASSIUM 25 MG TABLET 100 MG PO (08:04)
[2025-02-24] MEDS: SERTRALINE HCL 25 MG TABLET 50 MG PO (08:06)
[2025-02-24] MEDS: atenoloL 25 MG TABLET 12.5 MG PO (08:06)
[2025-02-24] MEDS: SENNA TABLET 2 TAB PO (08:06)
[2025-02-24] MEDS: BusPIRone HCL 5 MG TABLET 10 MG PO (08:06)
[2025-02-24] MEDS: POTASSIUM CHLORIDE 20 mEq TABCR PO (08:07)
[2025-02-24] MEDS: MORPHINE SULF INJ 10 MG/ML VIAL IVP (08:08)
[2025-02-24] MEDS: INSULIN LISPRO (AdmeLOG) 1 UNIT/0.01 ML UNIT SC ×4 (08:10→20:05)
--- NOTE | 2025-02-24 09:22 | PD.RESPRO ---
Documentation for date of: 02/24/25 Subjective Subjective Interval history: No acute overnight events. Seen and examined at bedside and patient does have pain with movement of her RLE and upon certain positions. Currently on morphine 1 mg q4h prn and norco 5. Hemoglobin noted to be low at 6.8 status-post ORIF and patient is currently only alert and oriented to self and birthdate only and cannot give consent for transfusion. Held eliquis in light of blood loss. At this time, will await on transfusion and consider consulting social/ethics committee. Otherwise, following ortho recs of WBAT and PT/OT evaluation. Exam Vital Signs Temp Pulse Resp BP Pulse Ox O2 Del Method O2 Flow Rate 97.4 F 94 18 147/80 H 96 Room Air 2 02/24/25 08:00 02/24/25 08:06 02/24/25 08:00 02/24/25 08:06 02/24/25 08:00 02/24/25 04:00 02/23/25 19:10 Narrative Exam General: AOx3, no acute distress, able to speak full sentences HEENT: NC/AT, mucous membranes moist, bilateral sclera anicteric Cardiovascular: regular rate and rhythm, S1/S2 present, no murmurs appreciated Pulmonary: clear to auscultation bilaterally, no rales/rhonchi/wheezes Abdominal: soft, non-tender, non-distended, no rebound/guarding, normal bowel sounds present Musculoskeletal: limited ROM of RLE, no peripheral edema Skin: warm and dry, intact, no rashes Neuro: slight tremor in right upper extremity Objective Labs 02/24/25 04:47 02/24/25 04:47 Labs: Laboratory Results - last 24 hr 02/22/25 02/24/25 02/24/25 19:55 04:47 06:32 WBC 12.2 H RBC 2.46 L Hgb 6.8 L* D Hct 20.3 L* MCV 83 MCH 27.6 MCHC 33.5 RDW Std Deviation 46.7 H Plt Count 176 D Neut % (Auto) 85 H Lymph % (Auto) 8 L [place] % (Auto) 7 Eos % (Auto) 0 Baso % (Auto) 0 Neut # (Auto) 10.4 H Lymph # (Auto) 0.9 L [place] # (Auto) 0.8 Eos # (Auto) 0.0 Baso # (Auto) 0.0 Immature Gran # (Auto) 0.09 H Absolute Nucleated RBC 0.00 Immature Gran % 1 H Nucleated RBC % 0 Sodium 135 L Potassium 4.1 Chloride 98 Carbon Dioxide 24.3 Anion Gap 13 BUN 14 Creatinine 1.1 Estim Creat Clear Calc 31.7 L eGFR 52 L BUN/Creatinine Ratio 13 Glucose 318 H Calculated Osmolality 282 Calcium 8.8 Blood Type B Positive Cancelled Antibody Screen POSITIVE Cancelled Antibody Identification Anti-K Crossmatch See Detail See Detail Blood Bank Wristband ID Yes Cancelled Quality Measures Quality Measures none Advance care planning discussed with:: patient Assessment & Plan Assessment Current Active Medications: Generic Name Dose Route Start Last Admin Trade Name Freq PRN Reason Stop Dose Admin Acetaminophen 650 mg 02/22/25 23:47 Acetaminophen 325 Mg Tablet PO 03/24/25 23:46 Q6H PRN PAIN OR FEVER > 101 Protocol Hydrocodone Bitart/Acetaminophen 1 tab 02/24/25 09:14 Hydrocodone/Apap 5/325 Tablet PO 03/01/25 09:13 Q6HR PRN PAIN SCALE 4-6 (Moderate Amlodipine Besylate 10 mg 02/23/25 21:00 02/23/25 21:48 Amlodipine Besylate 5 Mg Tablet PO 03/25/25 20:59 Not Given HS PONCHO Apixaban 5 mg 02/23/25 21:00 02/23/25 21:48 Apixaban 2.5 Mg Tablet PO 03/16/25 20:59 Not Given BID PONCHO Atenolol 12.5 mg 02/24/25 09:00 02/24/25 08:06 Atenolol 25 Mg Tablet PO 03/26/25 08:59 12.5 mg QDAY PONCHO Administration Atorvastatin Calcium 20 mg 02/23/25 21:00 02/23/25 21:48 Atorvastatin Calcium 20 Mg Tablet PO 03/25/25 20:59 Not Given HS PONCHO Buspirone HCl 10 mg 02/24/25 09:00 02/24/25 08:06 Buspirone Hcl 5 Mg Tablet PO 03/26/25 08:59 10 mg DAILY PONCHO Administration Dextrose 25 ml 02/23/25 00:13 Dextrose 50%-Water Inj 50 Ml Syringe IV 03/25/25 00:12 Q15MIN PRN BG 50-70 responsive npo pt Dextrose 50 ml 02/23/25 00:13 Dextrose 50%-Water Inj 50 Ml Syringe IV 03/25/25 00:12 Q15MIN PRN BG <50 OR BG <70 & pt unresponsive Glucagon 1 mg 02/23/25 00:13 Glucagon Inj 1 Mg Vial IM Q15MIN PRN BG <70, and no IV access Insulin Human Lispro 0 unit 02/23/25 21:00 02/24/25 08:10 Insulin Lispro (Admelog) 1 Unit/0.01 Ml Unit SC 03/25/25 20:59 4 unit ACHS PONCHO Administration Protocol Labetalol HCl 10 mg 02/23/25 00:12 Labetalol Inj 5 Mg/Ml Vial 20 Ml IVP 03/25/25 00:11 Q6HR PRN SBP>170 Losartan Potassium 100 mg 02/23/25 09:00 02/24/25 08:04 Losartan Potassium 25 Mg Tablet PO 03/25/25 08:59 100 mg QDAY PONCHO Administration Mirtazapine 7.5 mg 02/23/25 21:00 02/23/25 21:49 Mirtazapine 15 Mg Tablet PO 03/25/25 20:59 Not Given HS PONCHO Morphine Sulfate 1 mg 02/24/25 09:15 Morphine Sulf Inj 10 Mg/Ml Vial IVP 02/28/25 10:19 Q4HR PRN PAIN SCALE 7-10 (Severe Non-Formulary ( 1 applicatio 02/23/25 18:31 Lidocaine Hcl [ TOPICAL Aspercreme ( PRN PRN Lidocaine Hcl)] 4 % Pain Cream Non-Formulary ( 3 mg 02/23/25 21:00 02/23/25 21:42 Semaglutide 3 Mg PO 03/25/25 20:59 Not Given Tablet) HS PONCHO Ondansetron HCl 4 mg 02/22/25 23:47 02/23/25 00:14 Ondansetron Inj 2 Mg/Ml Inj 2 Ml IV 03/24/25 23:46 4 mg Q6H PRN Administration NAUSEA OR VOMITING Protocol Potassium Chloride 20 meq 02/24/25 09:00 02/24/25 08:07 Potassium Chloride 20 Meq Tabcr PO 03/26/25 08:59 20 meq QDAY PONCHO Administration Sennosides 2 tab 02/22/25 23:47 02/24/25 08:06 Senna Tablet PO 03/24/25 23:46 2 tab BID PRN Administration CONSTIPATION Protocol Sertraline HCl 50 mg 02/24/25 09:00 02/24/25 08:06 Sertraline Hcl 25 Mg Tablet PO 03/26/25 08:59 50 mg QDAY PONCHO Administration Plan Elidia Dobson is a 74-year-old female with a past medical history of CVA, DVT, coronary artery disease status post PCI, type 2 diabetes mellitus, hyperlipidemia, and hypertension who presented after mechanical ground-level fall and found to have right-sided hip fracture on imaging. #Acute intertrochanteric fracture of the right hip #Mechanical fall CT head negative for acute hemorrhage mass effect or midline shift, CT cervical spine showed no acute fracture, x-ray hip showed acute intertrochanteric fracture of right hip. ER consulted orthopedic surgeon Dr. Salcedo who recommended admission. Given patient's multiple risk factors and history of cardiac disease and CVAs, will get consult cardiology for cardiac clearance. EKG showed sinus rhythm, history of DVT and prescribed Eliquis last year. Unsure if she is taking any blood thinners at this moment. ? Orthopedic surgeon, Dr. Salcedo, consulted ? Status-post ORIF ? Cardiology consult for cardiac clearance: cleared for procedure ? Pain management: IV morphine 1 mg every q4h, norco 5 ? Ordered echocardiogram #Normocytic anemia, secondary to blood loss s/p ORIF Hemoglobin 6.8 from 8.8, unable to transfuse blood at this time given that patient is not oriented. ? 2 units pRBC ordered but pending transfusion #Leucocytosis, likely reactive Patient is afebrile, denies dysuria, cough or abdominal discomfort and thus likely reactive leukocytosis ? Continue to monitor #History of DVT #History of CVA #History of coronary artery disease status post PCI in 2019 Attempted to contact patient's partner multiple times but unable to reach. ? Pending med rec #History of diabetes mellitus ? SSI ? Low carb diet #History of hypertension ? Labetolol 10 mg IV q6h PRN ? Losartan 100 mg daily Hospital management: Disposition: s/p ORIF, anticipate discharge within next 24-48 hours Diet: low carb diet Lines: PIV DVT prophylaxis: SCDs CODE STATUS: full code ----- Plan discussed with attending physician Dr. Zen Edmonds MD PGY-1 Internal Medicine Attending Provider Attestation/Addendum I attest that I was physically present for the evaluation, physical examination, lab and imaging review of the patient with the residents. I discussed the case with the residents and agree with the findings and plans of care as documented above. At bedside today, patient appears comfortable. Her pain has been controlled with analgesics. she appears mildly confused, oriented to herself and birthday only. Noted to have hemoglobin of 6.8, possibly related to her hip surgery. Ordered transfusion of 2 units of PRBC with hemoglobin goal of 8 (patient has CAD), unable to do so as patient is unable to give consent for transfusion. We will also hold her Eliquis in setting of blood loss anemia, discussed with social workers, will try to reach out to her significant other to get the consent for transfusion. Awaiting physical therapy evaluation. Once consent is obtained, we will proceed with the transfusion and follow-up on the hemoglobin level tomorrow. Arturo Zaldivar MD
--- NOTE | 2025-02-24 09:32 | PC.SS ---
SS follow up note; SS confirmed with Francisca from [facility] and has accepted patient, however patient's HMG is low and will need blood transfusion. Possible discharge to [facility] tomorrow.
[2025-02-24] MEDS: INSULIN GLARGINE (Lantus) 5 UNIT/0.05 ML (PER 5 UNITS) 10 UNIT SC (09:54)
--- NOTE | 2025-02-24 10:00 | PC.SS ---
SS follow up note; YANIQUE followed up with Francisca from [facility] and she informed SS that she wk
[2025-02-24] MEDS: HYDROcodone/APAP 5/325 TABLET 1 TAB PO ×2 (12:15→17:51)
--- NOTE | 2025-02-24 13:22 | PC.NURSE ---
Patient oriented to self only. Patient is unable to recall home medications list. MD aware.
--- NOTE | 2025-02-24 13:59 | PC.NURSE ---
Patient unable to sign blood consent. Patient oriented to self only.
--- NOTE | 2025-02-24 14:12 | PC.SS ---
SS follow up note; SS attempted to contact patient's Noé, however has been unsuccessful.
--- NOTE | 2025-02-24 14:19 | PC.SS ---
SS follow up note; SS contacted [facility] police in order to do a welfare check to see if they are able to locate patient's significant other, SS provided Address, name and contact number for Noé. SS provided SS contact number. SS will stand by for further needs.
--- NOTE | 2025-02-24 14:23 | PC.SS ---
SS follow up: received a call from [facility] staff [facility] as no serious [facility] illness.
--- NOTE | 2025-02-24 14:58 | PD.ANESPROG ---
Documentation for date of: 02/24/25 POST ANESTHESIA NOTE: Patient had GETA for R TFN yesterday. I saw her briefly earlier today in 353 and she was alert and calm in bed, NAD, denied any problems from anesthesia, denied chest pain. Roldan Diehl MD Anesthesia Progress Note Progress Note Most recent Vital Signs: Last Vital Signs Temp 97.0 F 02/24/25 12:00 Pulse 70 02/24/25 12:00 Resp 18 02/24/25 12:00 BP 117/52 L 02/24/25 12:00 Pulse Ox 98 02/24/25 12:00 O2 Del Method Room Air 02/24/25 12:00 O2 Flow Rate 2 02/23/25 19:10
--- NOTE | 2025-02-24 15:40 | PC.SS ---
SS follow up note; Francisca from [facility] informed SS that auth was submitted this morning. At the time auth is still pending.
--- NOTE | 2025-02-24 16:59 | ESPR_ITS ---
<Statement entered by Higinio Morales MD - 02/25/25 09:00> The patient is doing well clinically stable not have any chest pain shortness of breath underwent successful ORIF no complications evident the patient with Dr. Blanchard PGY 2 agree with the treatment plan recommendation cardiac echo will be reviewed upon completion Documentation for date of: 02/24/25 Subjective Subjective Interval history: Patient was seen and examined at the bedside. No overnight events. Yesterday patient underwent ORIF without complications and her Eliquis 5 mg twice daily was resumed. Today patient was found to have hemoglobin 6.8 likely due to blood loss due to ORIF, 2 units of PRBCs were ordered and Eliquis was held. Patient is more confused today. Continue current management and monitor patient. Exam Vital Signs Temp Pulse Resp BP Pulse Ox O2 Del Method O2 Flow Rate 98.0 F 80 18 113/65 96 Room Air 2 02/24/25 16:00 02/24/25 16:00 02/24/25 16:00 02/24/25 16:00 02/24/25 16:00 02/24/25 16:00 02/23/25 19:10 Narrative Exam Gen: Well-developed and well-nourished. HEENT: NCAT, PERRLA, EOMI, MMM, anicteric conjunctivae. CVS: normal S1 and S2. RRR. No M/R/G. Resp: CTA B/L. No rhonchi, rales, crackles or wheezing. Abd: soft, non-tender, non-distended. BS+ in all 4 quadrants. MSK: Good ROM in BUE. No edema or rash. Right hip in surgical dressing, appears clean. Neuro: CN II-XII grossly intact. Strength 5/5 in BUE. Alert and oriented x1. Psych: appropriate mood and affect. Objective Labs 02/24/25 04:47 02/24/25 04:47 Labs: Laboratory Results - last 24 hr 02/22/25 02/24/25 02/24/25 19:55 04:47 06:32 WBC 12.2 H RBC 2.46 L Hgb 6.8 L* D Hct 20.3 L* MCV 83 MCH 27.6 MCHC 33.5 RDW Std Deviation 46.7 H Plt Count 176 D Neut % (Auto) 85 H Lymph % (Auto) 8 L [place] % (Auto) 7 Eos % (Auto) 0 Baso % (Auto) 0 Neut # (Auto) 10.4 H Lymph # (Auto) 0.9 L [place] # (Auto) 0.8 Eos # (Auto) 0.0 Baso # (Auto) 0.0 Immature Gran # (Auto) 0.09 H Absolute Nucleated RBC 0.00 Immature Gran % 1 H Nucleated RBC % 0 Sodium 135 L Potassium 4.1 Chloride 98 Carbon Dioxide 24.3 Anion Gap 13 BUN 14 Creatinine 1.1 Estim Creat Clear Calc 31.7 L eGFR 52 L BUN/Creatinine Ratio 13 Glucose 318 H Calculated Osmolality 282 Calcium 8.8 Blood Type B Positive Cancelled Antibody Screen POSITIVE Cancelled Antibody Identification Anti-K Crossmatch See Detail See Detail Blood Bank Wristband ID Yes Cancelled Quality Measures Quality Measures none Advance care planning discussed with:: patient Assessment & Plan Assessment Current Active Medications: Generic Name Dose Route Start Last Admin Trade Name Freq PRN Reason Stop Dose Admin Acetaminophen 650 mg 02/22/25 23:47 Acetaminophen 325 Mg Tablet PO 03/24/25 23:46 Q6H PRN PAIN OR FEVER > 101 Protocol Hydrocodone Bitart/Acetaminophen 1 tab 02/24/25 09:14 02/24/25 12:15 Hydrocodone/Apap 5/325 Tablet PO 03/01/25 09:13 1 tab Q6HR PRN Administration PAIN SCALE 4-6 (Moderate Amlodipine Besylate 10 mg 02/23/25 21:00 02/23/25 21:48 Amlodipine Besylate 5 Mg Tablet PO 03/25/25 20:59 Not Given HS PONCHO Apixaban 5 mg 02/23/25 21:00 02/23/25 21:48 Apixaban 2.5 Mg Tablet PO 03/16/25 20:59 Not Given BID PONCHO Atenolol 12.5 mg 02/24/25 09:00 02/24/25 08:06 Atenolol 25 Mg Tablet PO 03/26/25 08:59 12.5 mg QDAY PONCHO Administration Atorvastatin Calcium 20 mg 02/23/25 21:00 02/23/25 21:48 Atorvastatin Calcium 20 Mg Tablet PO 03/25/25 20:59 Not Given HS PONCHO Buspirone HCl 10 mg 02/24/25 09:00 02/24/25 08:06 Buspirone Hcl 5 Mg Tablet PO 03/26/25 08:59 10 mg DAILY PONCHO Administration Dextrose 25 ml 02/23/25 00:13 Dextrose 50%-Water Inj 50 Ml Syringe IV 03/25/25 00:12 Q15MIN PRN BG 50-70 responsive npo pt Dextrose 50 ml 02/23/25 00:13 Dextrose 50%-Water Inj 50 Ml Syringe IV 03/25/25 00:12 Q15MIN PRN BG <50 OR BG <70 & pt unresponsive Glucagon 1 mg 02/23/25 00:13 Glucagon Inj 1 Mg Vial IM Q15MIN PRN BG <70, and no IV access Insulin Glargine 10 unit 02/24/25 09:45 02/24/25 09:54 Insulin Glargine (Lantus) 5 Unit/0.05 Ml (Per 5 Units) SC 03/26/25 09:44 10 unit QDAY PONCHO Administration Insulin Human Lispro 0 unit 02/23/25 21:00 02/24/25 12:08 Insulin Lispro (Admelog) 1 Unit/0.01 Ml Unit SC 03/25/25 20:59 4 unit ACHS PONCHO Administration Protocol Labetalol HCl 10 mg 02/23/25 00:12 Labetalol Inj 5 Mg/Ml Vial 20 Ml IVP 03/25/25 00:11 Q6HR PRN SBP>170 Losartan Potassium 100 mg 02/23/25 09:00 02/24/25 08:04 Losartan Potassium 25 Mg Tablet PO 03/25/25 08:59 100 mg QDAY PONCHO Administration Mirtazapine 7.5 mg 02/23/25 21:00 02/23/25 21:49 Mirtazapine 15 Mg Tablet PO 03/25/25 20:59 Not Given HS [facility] Morphine Sulfate 1 mg 02/24/25 09:15 Morphine Sulf Inj 10 Mg/Ml Vial IVP 02/28/25 10:19 Q4HR PRN PAIN SCALE 7-10 (Severe Non-Formulary ( 1 applicatio 02/23/25 18:31 Lidocaine Hcl [ TOPICAL Aspercreme ( PRN PRN Lidocaine Hcl)] 4 % Pain Cream Non-Formulary ( 3 mg 02/23/25 21:00 02/23/25 21:42 Semaglutide 3 Mg PO 03/25/25 20:59 Not Given Tablet) HS PONCHO Ondansetron HCl 4 mg 02/22/25 23:47 02/23/25 00:14 Ondansetron Inj 2 Mg/Ml Inj 2 Ml IV 03/24/25 23:46 4 mg Q6H PRN Administration NAUSEA OR VOMITING Protocol Potassium Chloride 20 meq 02/24/25 09:00 02/24/25 08:07 Potassium Chloride 20 Meq Tabcr PO 03/26/25 08:59 20 meq QDAY PONCHO Administration Sennosides 2 tab 02/22/25 23:47 02/24/25 08:06 Senna Tablet PO 03/24/25 23:46 2 tab BID PRN Administration CONSTIPATION Protocol Sertraline HCl 50 mg 02/24/25 09:00 02/24/25 08:06 Sertraline Hcl 25 Mg Tablet PO 03/26/25 08:59 50 mg QDAY PONCHO Administration Plan Patient is a 74 years old female with past medical history of CVA, DVT, CAD s/p PCI, type II diabetes mellitus, hyperlipidemia and hypertension who came to the ER after mechanical fall, right hip x-ray showed acute intertrochanteric fracture of right hip, ER consulted orthopedic surgeon Dr. Salcedo who recommended admission and ORIF, cardiology was consulted for cardiac clearance. #Intertrochanteric fracture of right hip s/p ORIF 02/23/2025 POD 1. #Ground level fall. #Severe normocytic anemia, acute. - right hip x-ray showed acute intertrochanteric fracture of right hip. - ER consulted orthopedic surgeon Dr. Salcedo who recommended admission and ORIF. - Echo from 2022 showed ejection fraction 65% with minor diastolic dysfunction. - RCRI 2 points: History of CAD and CVA. Creatinine 0.8, not on insulin therapy at home. Low risk surgery. METs > 4. - On POD 1 patient was noted to have hemoglobin 6.8, likely related to ORIF surgery, Eliquis was held and blood transfusion was ordered. Plan: - Hold Eliquis. - Transfused 2 units of PRBCs. #CAD s/p PCI. #Hx of CVA. #HLD. - Patient reported stent placement in 2009 and does not take aspirin or clopidogrel. - Angiography in 2019 showed no coronary lesions, open stent. Plan: - resume home atorvastatin. #HTN. - At home taking amlodipine, atenolol, losartan. Plan: - resume home amlodipine, atenolol and losartan. #DVT. - In 01/2024 patient was found to have nonocclusive thrombus in the left peroneal vein and was started on Eliquis and continues taking and since then. Plan: - Hold Eliquis in setting of bleeding. Plan of care discussed with attending Dr. Morales. Santo Sims MD, PGY 2. Disclaimer: This note was dictated by speech recognition. Minor errors in union contract representative may be present due to voice recognition software.
[2025-02-24] MEDS: ATORVASTATIN CALCIUM 20 MG TABLET PO (20:04)
[2025-02-24] MEDS: MIRTAZAPINE 15 MG TABLET 7.5 MG PO (20:05)
[2025-02-25] VITALS (10 sets, daily range): BP systolic 159; BP diastolic 76–86; PULSE 67–100; RESP 15–95; TEMP 36.6–37; O2SAT 95–99; BMI 21.9; BMI 12.0
[2025-02-25 00:35] LABS: Hematocrit 30.1 % (36.0-46.0)
[2025-02-25] MEDS: MORPHINE SULF INJ 10 MG/ML VIAL IVP ×2 (04:29→11:08)
[2025-02-25 05:59] LABS: Basophils % (Auto) 0 % (0-2.5); Eosinophils % (Auto) 0 % (0-10); Hematocrit 27.3 % (36.0-46.0); Hemoglobin 9.8 g/dL (12.0-16.0); Immature Granulocytes % (Auto) 1 % (0-0); Immature Granulocytes Auto 0.11 Thou/mm3 (0.00-0.00); Lymphocytes # (Auto) 1.6 Thou/mm3 (1.0-4.8); Lymphocytes % (Auto) 13 % (10-50); Mean Corpuscular HGB Conc 35.9 g/dl (31.0-37.0); Mean Corpuscular Hemoglobin 29.4 pg (25.0-35.0); Mean Corpuscular Volume 82 fL (80-100); Monocytes # (Auto) 0.9 Thou/mm3 (0.0-0.8); Monocytes % (Auto) 8 % (0-12); Neutrophils # (Auto) 9.2 Thou/mm3 (1.8-7.7); Neutrophils % (Auto) 78 % (37-80); Nucleated Red Blood Cell # 0.02 Thou/mm3 (0.00-0.00); Nucleated Red Blood Cell % 0 /100 WBC (0); Platelet Count 156 Thou/mm3 (140-440); RDW Standard Deviation 42.4 fL (36.4-46.3); Red Blood Count 3.33 Miln/mm3 (4.00-5.20); White Blood Count 11.8 Thou/mm3 (3.6-11.0)
[2025-02-25 06:05] LABS: Hemoglobin 10.6 g/dL (12.0-16.0)
[2025-02-25 06:26] LABS: Anion Gap 11 (7-16); BUN/Creatinine Ratio 21 Ratio (12-20); Blood Urea Nitrogen 21 mg/dL (9-23); Calcium 8.5 mg/dL (8.3-10.6); Carbon Dioxide 23.5 mMol/L (20.0-31.0); Chloride 101 mMol/L (98-107); Estimated Creatinine Clearance 34.9 mL/min (>60); Glucose 245 mg/dL (74-106); Osmolality,Calculated 281 (275-295); Potassium 4.5 mMol/L (3.4-5.1); Sodium 135 mMol/L (136-145); eGFR 59 See Note
[2025-02-25] MEDS: BusPIRone HCL 5 MG TABLET 10 MG PO (08:48)
[2025-02-25] MEDS: SENNA TABLET 2 TAB PO ×2 (08:48→23:25)
[2025-02-25] MEDS: INSULIN GLARGINE (Lantus) 5 UNIT/0.05 ML (PER 5 UNITS) 15 UNIT SC (08:48)
[2025-02-25] MEDS: SERTRALINE HCL 25 MG TABLET 50 MG PO (08:48)
[2025-02-25] MEDS: POTASSIUM CHLORIDE 20 mEq TABCR PO (08:48)
[2025-02-25] MEDS: atenoloL 25 MG TABLET 12.5 MG PO (08:49)
[2025-02-25] MEDS: LOSARTAN POTASSIUM 25 MG TABLET 100 MG PO (08:49)
[2025-02-25] MEDS: INSULIN LISPRO (AdmeLOG) 1 UNIT/0.01 ML UNIT 3 UNIT SC ×2 (11:35→17:18)
[2025-02-25] MEDS: INSULIN LISPRO (AdmeLOG) 1 UNIT/0.01 ML UNIT SC ×3 (11:35→21:45)
--- NOTE | 2025-02-25 11:38 | PD.RESPRO ---
Documentation for date of: 02/25/25 Subjective Subjective Interval history: No acute overnight events. Seen and examined at bedside and patient's pain appears to be well-controlled on current regimen. She remains alert and oriented to self and birthdate only and cannot appropriately answer where she is or the year. However, does appear to be slightly more confused today. Physical therapy has already been ordered, pending evaluation as patient will likely require SNF upon discharge. Vital signs showed BP 159/80 but otherwise stable. Blood sugars elevated, increased glargine from 10 to 15 and added lispro with meals. Received 2 units pRBC yesteday and hemoglobin increased from 6.8 to 9.8. Exam Vital Signs Temp Pulse Resp BP Pulse Ox O2 Del Method O2 Flow Rate 98.4 F 67 16 159/80 H 97 Room Air 0 02/25/25 08:00 02/25/25 08:49 02/25/25 08:00 02/25/25 08:49 02/25/25 08:00 02/25/25 04:00 02/25/25 04:00 Narrative Exam General: AOx2, no acute distress, able to speak full sentences HEENT: NC/AT, mucous membranes moist, bilateral sclera anicteric Cardiovascular: regular rate and rhythm, S1/S2 present, no murmurs appreciated Pulmonary: clear to auscultation bilaterally, no rales/rhonchi/wheezes Abdominal: soft, non-tender, non-distended, no rebound/guarding, normal bowel sounds present Musculoskeletal: limited ROM of RLE, no peripheral edema Skin: warm and dry, intact, no rashes Neuro: slight tremor in right upper extremity Objective Labs 02/26/25 05:10 02/26/25 05:10 Labs: Laboratory Results - last 24 hr 02/22/25 02/24/25 02/24/25 19:55 00:21 04:47 WBC RBC Hgb 10.6 L D 6.8 L* D Hct 30.1 L 20.3 L* MCV MCH MCHC RDW Std Deviation Plt Count Neut % (Auto) Lymph % (Auto) [place] % (Auto) Eos % (Auto) Baso % (Auto) Neut # (Auto) Lymph # (Auto) [place] # (Auto) Eos # (Auto) Baso # (Auto) Immature Gran # (Auto) Absolute Nucleated RBC Immature Gran % Nucleated RBC % Sodium Potassium Chloride Carbon Dioxide Anion Gap BUN Creatinine Estim Creat Clear Calc eGFR BUN/Creatinine Ratio Glucose Calculated Osmolality Calcium Blood Type B Positive Antibody Screen POSITIVE Antibody Identification Anti-K Crossmatch See Detail Blood Bank Wristband ID Yes 02/25/25 05:06 WBC 11.8 H RBC 3.33 L Hgb 9.8 L D Hct 27.3 L MCV 82 MCH 29.4 MCHC 35.9 RDW Std Deviation 42.4 Plt Count 156 Neut % (Auto) 78 Lymph % (Auto) 13 [place] % (Auto) 8 Eos % (Auto) 0 Baso % (Auto) 0 Neut # (Auto) 9.2 H Lymph # (Auto) 1.6 [place] # (Auto) 0.9 H Eos # (Auto) 0.0 Baso # (Auto) 0.0 Immature Gran # (Auto) 0.11 H Absolute Nucleated RBC 0.02 H Immature Gran % 1 H Nucleated RBC % 0 Sodium 135 L Potassium 4.5 Chloride 101 Carbon Dioxide 23.5 Anion Gap 11 BUN 21 Creatinine 1.0 Estim Creat Clear Calc 34.9 L eGFR 59 L BUN/Creatinine Ratio 21 H Glucose 245 H D Calculated Osmolality 281 Calcium 8.5 Blood Type Antibody Screen Antibody Identification Crossmatch Blood Bank Wristband ID Quality Measures Quality Measures none Advance care planning discussed with:: patient Assessment & Plan Assessment Current Active Medications: Generic Name Dose Route Start Last Admin Trade Name Freq PRN Reason Stop Dose Admin Acetaminophen 650 mg 02/22/25 23:47 Acetaminophen 325 Mg Tablet PO 03/24/25 23:46 Q6H PRN PAIN OR FEVER > 101 Protocol Hydrocodone Bitart/Acetaminophen 1 tab 02/24/25 09:14 02/24/25 17:51 Hydrocodone/Apap 5/325 Tablet PO 03/01/25 09:13 1 tab Q6HR PRN Administration PAIN SCALE 4-6 (Moderate Amlodipine Besylate 10 mg 02/23/25 21:00 02/24/25 20:32 Amlodipine Besylate 5 Mg Tablet PO 03/25/25 20:59 Not Given HS PONCHO Apixaban 2.5 mg 02/25/25 10:30 Apixaban 2.5 Mg Tablet PO 03/18/25 10:29 BID PONCHO Atenolol 12.5 mg 02/24/25 09:00 02/25/25 08:49 Atenolol 25 Mg Tablet PO 03/26/25 08:59 12.5 mg QDAY PONCHO Administration Atorvastatin Calcium 20 mg 02/23/25 21:00 02/24/25 20:04 Atorvastatin Calcium 20 Mg Tablet PO 03/25/25 20:59 20 mg HS PONCHO Administration Buspirone HCl 10 mg 02/24/25 09:00 02/25/25 08:48 Buspirone Hcl 5 Mg Tablet PO 03/26/25 08:59 10 mg DAILY PONCHO Administration Dextrose 25 ml 02/23/25 00:13 Dextrose 50%-Water Inj 50 Ml Syringe IV 03/25/25 00:12 Q15MIN PRN BG 50-70 responsive npo pt Dextrose 50 ml 02/23/25 00:13 Dextrose 50%-Water Inj 50 Ml Syringe IV 03/25/25 00:12 Q15MIN PRN BG <50 OR BG <70 & pt unresponsive Glucagon 1 mg 02/23/25 00:13 Glucagon Inj 1 Mg Vial IM Q15MIN PRN BG <70, and no IV access Insulin Glargine 15 unit 02/25/25 09:00 02/25/25 08:48 Insulin Glargine (Lantus) 5 Unit/0.05 Ml (Per 5 Units) SC 03/27/25 08:59 15 unit QDAY PONCHO Administration Insulin Human Lispro 0 unit 02/25/25 08:19 Insulin Lispro (Admelog) 1 Unit/0.01 Ml Unit SC 03/25/25 20:59 ACHS [facility] Protocol Insulin Human Lispro 3 unit 02/25/25 12:00 Insulin Lispro (Admelog) 1 Unit/0.01 Ml Unit SC 03/27/25 11:59 TIDWM [facility] Labetalol HCl 10 mg 02/23/25 00:12 Labetalol Inj 5 Mg/Ml Vial 20 Ml IVP 03/25/25 00:11 Q6HR PRN SBP>170 Losartan Potassium 100 mg 02/23/25 09:00 02/25/25 08:49 Losartan Potassium 25 Mg Tablet PO 03/25/25 08:59 100 mg QDAY PONCHO Administration Mirtazapine 7.5 mg 02/23/25 21:00 02/24/25 20:05 Mirtazapine 15 Mg Tablet PO 03/25/25 20:59 7.5 mg HS PONCHO Administration Morphine Sulfate 1 mg 02/24/25 09:15 02/25/25 11:08 Morphine Sulf Inj 10 Mg/Ml Vial IVP 02/28/25 10:19 1 mg Q4HR PRN Administration PAIN SCALE 7-10 (Severe Non-Formulary ( 1 applicatio 02/23/25 18:31 Lidocaine Hcl [ TOPICAL Aspercreme ( PRN PRN Lidocaine Hcl)] 4 % Pain Cream Non-Formulary ( 3 mg 02/23/25 21:00 02/24/25 20:31 Semaglutide 3 Mg PO 03/25/25 20:59 Not Given Tablet) HS PONCHO Ondansetron HCl 4 mg 02/22/25 23:47 02/23/25 00:14 Ondansetron Inj 2 Mg/Ml Inj 2 Ml IV 03/24/25 23:46 4 mg Q6H PRN Administration NAUSEA OR VOMITING Protocol Potassium Chloride 20 meq 02/24/25 09:00 02/25/25 08:48 Potassium Chloride 20 Meq Tabcr PO 03/26/25 08:59 20 meq QDAY PONCHO Administration Sennosides 2 tab 02/22/25 23:47 02/25/25 08:48 Senna Tablet PO 03/24/25 23:46 2 tab BID PRN Administration CONSTIPATION Protocol Sertraline HCl 50 mg 02/24/25 09:00 02/25/25 08:48 Sertraline Hcl 25 Mg Tablet PO 03/26/25 08:59 50 mg QDAY PONCHO Administration Adolfo Dobson is a 74-year-old female with a past medical history of CVA, DVT, coronary artery disease status post PCI, type 2 diabetes mellitus, hyperlipidemia, and hypertension who presented after mechanical ground-level fall and found to have right-sided hip fracture on imaging. #Acute intertrochanteric fracture of the right hip #Mechanical fall CT head negative for acute hemorrhage mass effect or midline shift, CT cervical spine showed no acute fracture, x-ray hip showed acute intertrochanteric fracture of right hip. ER consulted orthopedic surgeon Dr. Salcedo who recommended admission. Given patient's multiple risk factors and history of cardiac disease and CVAs, will get consult cardiology for cardiac clearance. EKG showed sinus rhythm, history of DVT and prescribed Eliquis last year. Unsure if she is taking any blood thinners at this moment. ? Orthopedic surgeon, Dr. Salcedo, consulted ? Status-post ORIF, pending PT evaluation ? Cardiology consult for cardiac clearance: cleared for procedure ? Pain management: IV morphine 1 mg every q4h, norco 5 ? Ordered echocardiogram #Normocytic anemia, secondary to blood loss s/p ORIF, resolved Hemoglobin 6.8 from 8.8, unable to transfuse blood at this time given that patient is not oriented. Satus-post transfusion 2 units pRBC with improvement in hemoglobin from 6.8 to 9.8. #Leucocytosis, likely reactive Patient is afebrile, denies dysuria, cough or abdominal discomfort and thus likely reactive leukocytosis ? Continue to monitor #History of DVT #History of CVA #History of coronary artery disease status post PCI in 2019 Attempted to contact patient's partner multiple times but unable to reach. ? Eliquis 2.5 mg p.o. BID #History of diabetes mellitus ? SSI ? Carb consistent low diet #History of hypertension ? Labetolol 10 mg IV q6h PRN ? Losartan 100 mg daily Hospital management: Disposition: s/p ORIF, anticipate discharge within next 24-48 hours Diet: carb consistent low Lines: PIV DVT prophylaxis: eliquis 2.5 mg BID CODE STATUS: full code ----- Plan discussed with attending physician Dr. Zen Edmonds MD PGY-1 Internal Medicine Attending Provider Attestation/Addendum I attest that I was physically present for the evaluation, physical examination, lab and imaging review of the patient with the residents. I discussed the case with the residents and agree with the findings and plans of care as documented above. Arturo Zaldivar MD
--- NOTE | 2025-02-25 11:54 | ESPR_ITS ---
<Statement entered by Higinio Morales MD - 02/26/25 12:13> I personally evaluated examined the patient appears to be doing better she required transfusion hemoglobin drop now hemoglobin stable at 9.6 g clinically doing well no complication following the procedure echocardiogram normal left ventricle function elevated the patient personally examined along with resident physician Dr. Blanchard PGY 2 treatment plan recommendation reviewed agree with the treatment plan cardiac collins quite stable known CAD stent placement with no restenosis Documentation for date of: 02/25/25 Subjective Subjective Interval history: Patient was seen and examined at bedside. No acute overnight events. Patient underwent blood transfusion yesterday and her hemoglobin is stable today, no bleeding. Will continue current management and monitor patient. Exam Vital Signs Temp Pulse Resp BP Pulse Ox O2 Del Method O2 Flow Rate 98.4 F 67 16 159/80 H 97 Room Air 0 02/25/25 08:00 02/25/25 08:49 02/25/25 08:00 02/25/25 08:49 02/25/25 08:00 02/25/25 04:00 02/25/25 04:00 Narrative Exam Gen: Well-developed and well-nourished. HEENT: NCAT, PERRLA, EOMI, MMM, anicteric conjunctivae. CVS: normal S1 and S2. RRR. No M/R/G. Resp: CTA B/L. No rhonchi, rales, crackles or wheezing. Abd: soft, non-tender, non-distended. BS+ in all 4 quadrants. MSK: Good ROM in BUE. No edema or rash. Right hip in surgical dressing, appears clean. Neuro: CN II-XII grossly intact. Strength 5/5 in BUE. Alert and oriented x2. Psych: appropriate mood and affect. Objective Labs 02/26/25 05:10 02/26/25 05:10 Labs: Laboratory Results - last 24 hr 02/22/25 02/24/25 02/24/25 19:55 00:21 04:47 WBC RBC Hgb 10.6 L D 6.8 L* D Hct 30.1 L 20.3 L* MCV MCH MCHC RDW Std Deviation Plt Count Neut % (Auto) Lymph % (Auto) [place] % (Auto) Eos % (Auto) Baso % (Auto) Neut # (Auto) Lymph # (Auto) [place] # (Auto) Eos # (Auto) Baso # (Auto) Immature Gran # (Auto) Absolute Nucleated RBC Immature Gran % Nucleated RBC % Sodium Potassium Chloride Carbon Dioxide Anion Gap BUN Creatinine Estim Creat Clear Calc eGFR BUN/Creatinine Ratio Glucose Calculated Osmolality Calcium Blood Type B Positive Antibody Screen POSITIVE Antibody Identification Anti-K Crossmatch See Detail Blood Bank Wristband ID Yes 02/25/25 05:06 WBC 11.8 H RBC 3.33 L Hgb 9.8 L D Hct 27.3 L MCV 82 MCH 29.4 MCHC 35.9 RDW Std Deviation 42.4 Plt Count 156 Neut % (Auto) 78 Lymph % (Auto) 13 [place] % (Auto) 8 Eos % (Auto) 0 Baso % (Auto) 0 Neut # (Auto) 9.2 H Lymph # (Auto) 1.6 [place] # (Auto) 0.9 H Eos # (Auto) 0.0 Baso # (Auto) 0.0 Immature Gran # (Auto) 0.11 H Absolute Nucleated RBC 0.02 H Immature Gran % 1 H Nucleated RBC % 0 Sodium 135 L Potassium 4.5 Chloride 101 Carbon Dioxide 23.5 Anion Gap 11 BUN 21 Creatinine 1.0 Estim Creat Clear Calc 34.9 L eGFR 59 L BUN/Creatinine Ratio 21 H Glucose 245 H D Calculated Osmolality 281 Calcium 8.5 Blood Type Antibody Screen Antibody Identification Crossmatch Blood Bank Wristband ID Quality Measures Quality Measures none Advance care planning discussed with:: patient Assessment & Plan Assessment Current Active Medications: Generic Name Dose Route Start Last Admin Trade Name Freq PRN Reason Stop Dose Admin Acetaminophen 650 mg 02/22/25 23:47 Acetaminophen 325 Mg Tablet PO 03/24/25 23:46 Q6H PRN PAIN OR FEVER > 101 Protocol Hydrocodone Bitart/Acetaminophen 1 tab 02/24/25 09:14 02/24/25 17:51 Hydrocodone/Apap 5/325 Tablet PO 03/01/25 09:13 1 tab Q6HR PRN Administration PAIN SCALE 4-6 (Moderate Amlodipine Besylate 10 mg 02/23/25 21:00 02/24/25 20:32 Amlodipine Besylate 5 Mg Tablet PO 03/25/25 20:59 Not Given HS PONCHO Apixaban 2.5 mg 02/25/25 10:30 Apixaban 2.5 Mg Tablet PO 03/18/25 10:29 BID PONCHO Atenolol 12.5 mg 02/24/25 09:00 02/25/25 08:49 Atenolol 25 Mg Tablet PO 03/26/25 08:59 12.5 mg QDAY PONCHO Administration Atorvastatin Calcium 20 mg 02/23/25 21:00 02/24/25 20:04 Atorvastatin Calcium 20 Mg Tablet PO 03/25/25 20:59 20 mg HS PONCHO Administration Buspirone HCl 10 mg 02/24/25 09:00 02/25/25 08:48 Buspirone Hcl 5 Mg Tablet PO 03/26/25 08:59 10 mg DAILY PONCHO Administration Dextrose 25 ml 02/23/25 00:13 Dextrose 50%-Water Inj 50 Ml Syringe IV 03/25/25 00:12 Q15MIN PRN BG 50-70 responsive npo pt Dextrose 50 ml 02/23/25 00:13 Dextrose 50%-Water Inj 50 Ml Syringe IV 03/25/25 00:12 Q15MIN PRN BG <50 OR BG <70 & pt unresponsive Glucagon 1 mg 02/23/25 00:13 Glucagon Inj 1 Mg Vial IM Q15MIN PRN BG <70, and no IV access Insulin Glargine 15 unit 02/25/25 09:00 02/25/25 08:48 Insulin Glargine (Lantus) 5 Unit/0.05 Ml (Per 5 Units) SC 03/27/25 08:59 15 unit QDAY PONCHO Administration Insulin Human Lispro 0 unit 02/25/25 08:19 02/25/25 11:35 Insulin Lispro (Admelog) 1 Unit/0.01 Ml Unit SC 03/25/25 20:59 4 unit ACHS PONCHO Administration Protocol Insulin Human Lispro 3 unit 02/25/25 12:00 02/25/25 11:35 Insulin Lispro (Admelog) 1 Unit/0.01 Ml Unit SC 03/27/25 11:59 3 unit TIDWM PONCHO Administration Labetalol HCl 10 mg 02/23/25 00:12 Labetalol Inj 5 Mg/Ml Vial 20 Ml IVP 03/25/25 00:11 Q6HR PRN SBP>170 Losartan Potassium 100 mg 02/23/25 09:00 02/25/25 08:49 Losartan Potassium 25 Mg Tablet PO 03/25/25 08:59 100 mg QDAY PONCHO Administration Mirtazapine 7.5 mg 02/23/25 21:00 02/24/25 20:05 Mirtazapine 15 Mg Tablet PO 03/25/25 20:59 7.5 mg HS PONCHO Administration Morphine Sulfate 1 mg 02/24/25 09:15 02/25/25 11:08 Morphine Sulf Inj 10 Mg/Ml Vial IVP 02/28/25 10:19 1 mg Q4HR PRN Administration PAIN SCALE 7-10 (Severe Non-Formulary ( 1 applicatio 02/23/25 18:31 Lidocaine Hcl [ TOPICAL Aspercreme ( PRN PRN Lidocaine Hcl)] 4 % Pain Cream Non-Formulary ( 3 mg 02/23/25 21:00 02/24/25 20:31 Semaglutide 3 Mg PO 03/25/25 20:59 Not Given Tablet) HS PONCHO Ondansetron HCl 4 mg 02/22/25 23:47 02/23/25 00:14 Ondansetron Inj 2 Mg/Ml Inj 2 Ml IV 03/24/25 23:46 4 mg Q6H PRN Administration NAUSEA OR VOMITING Protocol Potassium Chloride 20 meq 02/24/25 09:00 02/25/25 08:48 Potassium Chloride 20 Meq Tabcr PO 03/26/25 08:59 20 meq QDAY PONCHO Administration Sennosides 2 tab 02/22/25 23:47 02/25/25 08:48 Senna Tablet PO 03/24/25 23:46 2 tab BID PRN Administration CONSTIPATION Protocol Sertraline HCl 50 mg 02/24/25 09:00 02/25/25 08:48 Sertraline Hcl 25 Mg Tablet PO 03/26/25 08:59 50 mg QDAY PONCHO Administration Plan Patient is a 74 years old female with past medical history of CVA, DVT, CAD s/p PCI, type II diabetes mellitus, hyperlipidemia and hypertension who came to the ER after mechanical fall, right hip x-ray showed acute intertrochanteric fracture of right hip, ER consulted orthopedic surgeon Dr. Salcedo who recommended admission and ORIF, cardiology was consulted for cardiac clearance. #Intertrochanteric fracture of right hip s/p ORIF 02/23/2025 POD 1. #Ground level fall. #Severe normocytic anemia, acute, resolved. - right hip x-ray showed acute intertrochanteric fracture of right hip. - ER consulted orthopedic surgeon Dr. Salcedo who recommended admission and ORIF. - Echo from 2022 showed ejection fraction 65% with minor diastolic dysfunction. - RCRI 2 points: History of CAD and CVA. Creatinine 0.8, not on insulin therapy at home. Low risk surgery. METs > 4. - On POD 1 patient was noted to have hemoglobin 6.8, likely related to ORIF surgery, Eliquis was held and blood transfusion was ordered. - Transfused 2 units of PRBCs. Plan: - Hold Eliquis. - continue management as per ortho. #CAD s/p PCI. #Hx of CVA. #HLD. - Patient reported stent placement in 2009 and does not take aspirin or clopidogrel. - Angiography in 2019 showed no coronary lesions, open stent. Plan: - resume home atorvastatin. #HTN. - At home taking amlodipine, atenolol, losartan. Plan: - resume home amlodipine, atenolol and losartan. #DVT. - In 01/2024 patient was found to have nonocclusive thrombus in the left peroneal vein and was started on Eliquis and continues taking and since then. Plan: - Hold Eliquis in setting of bleeding. Plan of care discussed with attending Dr. Morales. Santo Sims MD, PGY 2. Disclaimer: This note was dictated by speech recognition. Minor errors in rider ticket worker may be present due to voice recognition software.
--- NOTE | 2025-02-25 13:11 | PC.SS ---
SS reached out to Francisca in regards to auth, per Francisca she has not received PT or OP notes. PT was completed today, pending documentation to send over to Francisca to start auth.
--- NOTE | 2025-02-25 14:48 | PC.SS ---
SS submitted PT and OP reports to Francisca at [facility] via [employer]
[2025-02-25] MEDS: ATORVASTATIN CALCIUM 20 MG TABLET PO (21:38)
[2025-02-25] MEDS: APIXABAN 2.5 MG TABLET PO (21:38)
[2025-02-25] MEDS: amLODIPine BESYLATE 5 MG TABLET 10 MG PO (21:39)
[2025-02-25] MEDS: MIRTAZAPINE 15 MG TABLET 7.5 MG PO (21:39)
[2025-02-25] MEDS: HYDROcodone/APAP 5/325 TABLET 1 TAB PO (23:25)
[2025-02-26] VITALS (12 sets, daily range): BP systolic 114–164; BP diastolic 59–78; PULSE 54–87; RESP 16–98; TEMP 36.2–37.6; O2SAT 95–97; BMI 11.0
--- NOTE | 2025-02-26 02:11 | PC.NURSE ---
Called Dr. Fernandez regarding patient has not had a bowel movement since admission, given patient PRN medication to help with BM but has not worked so far, per MD will look into patient's chart.
[2025-02-26] MEDS: POLYETHYLENE GLYCOL 17 GM PACKET PO ×2 (04:19→08:29)
[2025-02-26] MEDS: Milk Of Magnesia Susp 30 ML UDC PO (04:26)
[2025-02-26] MEDS: MORPHINE SULF INJ 10 MG/ML VIAL IVP (05:15)
[2025-02-26 06:02] LABS: Basophils % (Auto) 0 % (0-2.5); Eosinophils # (Auto) 0.2 Thou/mm3 (0.0-0.5); Eosinophils % (Auto) 1 % (0-10); Hematocrit 27.1 % (36.0-46.0); Hemoglobin 9.4 g/dL (12.0-16.0); Immature Granulocytes % (Auto) 1 % (0-0); Immature Granulocytes Auto 0.08 Thou/mm3 (0.00-0.00); Lymphocytes % (Auto) 16 % (10-50); Mean Corpuscular HGB Conc 34.7 g/dl (31.0-37.0); Mean Corpuscular Hemoglobin 28.6 pg (25.0-35.0); Mean Corpuscular Volume 82 fL (80-100); Monocytes # (Auto) 0.9 Thou/mm3 (0.0-0.8); Monocytes % (Auto) 8 % (0-12); Neutrophils # (Auto) 8.9 Thou/mm3 (1.8-7.7); Neutrophils % (Auto) 74 % (37-80); Nucleated Red Blood Cell % 0 /100 WBC (0); Platelet Count 196 Thou/mm3 (140-440); RDW Standard Deviation 42.1 fL (36.4-46.3); Red Blood Count 3.29 Miln/mm3 (4.00-5.20)
[2025-02-26 06:33] LABS: Anion Gap 9 (7-16); BUN/Creatinine Ratio 23 Ratio (12-20); Blood Urea Nitrogen 16 mg/dL (9-23); Calcium 8.5 mg/dL (8.3-10.6); Carbon Dioxide 27.2 mMol/L (20.0-31.0); Chloride 101 mMol/L (98-107); Creatinine (Component) 0.7 mg/dL (0.6-1.3); Estimated Creatinine Clearance 47.4 mL/min (>60); Glucose 215 mg/dL (74-106); Magnesium 1.8 mg/dL (1.6-2.6); Osmolality,Calculated 281 (275-295); Phosphorous 2.8 mg/dL (2.4-5.1); Potassium 4.3 mMol/L (3.4-5.1); Sodium 137 mMol/L (136-145); eGFR > 60 See Note
[2025-02-26] MEDS: INSULIN LISPRO (AdmeLOG) 1 UNIT/0.01 ML UNIT SC ×4 (07:26→22:51)
[2025-02-26] MEDS: APIXABAN 2.5 MG TABLET PO ×2 (08:26→22:32)
[2025-02-26] MEDS: atenoloL 25 MG TABLET 12.5 MG PO (08:26)
[2025-02-26] MEDS: SERTRALINE HCL 25 MG TABLET 50 MG PO (08:28)
[2025-02-26] MEDS: BusPIRone HCL 5 MG TABLET 10 MG PO (08:28)
[2025-02-26] MEDS: POTASSIUM CHLORIDE 20 mEq TABCR PO (08:29)
[2025-02-26] MEDS: LOSARTAN POTASSIUM 25 MG TABLET 100 MG PO (08:29)
[2025-02-26] MEDS: INSULIN GLARGINE (Lantus) 5 UNIT/0.05 ML (PER 5 UNITS) 20 UNIT SC (08:31)
--- NOTE | 2025-02-26 10:08 | PD.RESPRO ---
Documentation for date of: 02/26/25 Subjective Subjective Interval history: No acute overnight events. Patient seen and examined at bedside and states that pain is managed well with current regimen. Continues to be alert and oriented to self and birthdate only. Cleared by Ortho to be discharged home. However, she was seen by PT who recommended SNF, currently awaiting insurance authorization. Otherwise, vital signs stable. CBC stable, CHEM panel continues to show elevated blood sugars. Exam Vital Signs Temp Pulse Resp BP Pulse Ox O2 Del Method O2 Flow Rate 98.3 F 84 18 121/61 95 Room Air 0 02/26/25 08:00 02/26/25 08:52 02/26/25 08:52 02/26/25 08:29 02/26/25 08:00 02/26/25 08:00 02/25/25 09:00 Narrative Exam General: AOx2, no acute distress, able to speak full sentences HEENT: NC/AT, mucous membranes moist, bilateral sclera anicteric Cardiovascular: regular rate and rhythm, S1/S2 present, no murmurs appreciated Pulmonary: clear to auscultation bilaterally, no rales/rhonchi/wheezes Abdominal: soft, non-tender, non-distended, no rebound/guarding, normal bowel sounds present Musculoskeletal: limited ROM of RLE, no peripheral edema Skin: warm and dry, intact, no rashes Neuro: slight tremor in right upper extremity Objective Labs 02/26/25 05:10 02/26/25 05:10 Labs: Laboratory Results - last 24 hr 02/26/25 05:10 WBC 12.0 H RBC 3.29 L Hgb 9.4 L Hct 27.1 L MCV 82 MCH 28.6 MCHC 34.7 RDW Std Deviation 42.1 Plt Count 196 D Neut % (Auto) 74 Lymph % (Auto) 16 [place] % (Auto) 8 Eos % (Auto) 1 Baso % (Auto) 0 Neut # (Auto) 8.9 H Lymph # (Auto) 2.0 [place] # (Auto) 0.9 H Eos # (Auto) 0.2 Baso # (Auto) 0.0 Immature Gran # (Auto) 0.08 H Absolute Nucleated RBC 0.00 Immature Gran % 1 H Nucleated RBC % 0 Sodium 137 Potassium 4.3 Chloride 101 Carbon Dioxide 27.2 Anion Gap 9 BUN 16 Creatinine 0.7 Estim Creat Clear Calc 47.4 L eGFR > 60 BUN/Creatinine Ratio 23 H Glucose 215 H Calculated Osmolality 281 Calcium 8.5 Phosphorus 2.8 Magnesium 1.8 Quality Measures Quality Measures none Advance care planning discussed with:: patient Assessment & Plan Assessment Current Active Medications: Generic Name Dose Route Start Last Admin Trade Name Freq PRN Reason Stop Dose Admin Acetaminophen 650 mg 02/22/25 23:47 Acetaminophen 325 Mg Tablet PO 03/24/25 23:46 Q6H PRN PAIN OR FEVER > 101 Protocol Hydrocodone Bitart/Acetaminophen 1 tab 02/24/25 09:14 02/25/25 23:25 Hydrocodone/Apap 5/325 Tablet PO 03/01/25 09:13 1 tab Q6HR PRN Administration PAIN SCALE 4-6 (Moderate Amlodipine Besylate 10 mg 02/23/25 21:00 02/25/25 21:39 Amlodipine Besylate 5 Mg Tablet PO 03/25/25 20:59 10 mg HS PONCHO Administration Apixaban 2.5 mg 02/25/25 10:30 02/26/25 08:26 Apixaban 2.5 Mg Tablet PO 03/18/25 10:29 2.5 mg BID PONCHO Administration Atenolol 12.5 mg 02/24/25 09:00 02/26/25 08:26 Atenolol 25 Mg Tablet PO 03/26/25 08:59 12.5 mg QDAY PONCHO Administration Atorvastatin Calcium 20 mg 02/23/25 21:00 02/25/25 21:38 Atorvastatin Calcium 20 Mg Tablet PO 03/25/25 20:59 20 mg HS PONCHO Administration Buspirone HCl 10 mg 02/24/25 09:00 02/26/25 08:28 Buspirone Hcl 5 Mg Tablet PO 03/26/25 08:59 10 mg DAILY PONCHO Administration Dextrose 25 ml 02/23/25 00:13 Dextrose 50%-Water Inj 50 Ml Syringe IV 03/25/25 00:12 Q15MIN PRN BG 50-70 responsive npo pt Dextrose 50 ml 02/23/25 00:13 Dextrose 50%-Water Inj 50 Ml Syringe IV 03/25/25 00:12 Q15MIN PRN BG <50 OR BG <70 & pt unresponsive Glucagon 1 mg 02/23/25 00:13 Glucagon Inj 1 Mg Vial IM Q15MIN PRN BG <70, and no IV access Insulin Glargine 20 unit 02/26/25 09:00 02/26/25 08:31 Insulin Glargine (Lantus) 5 Unit/0.05 Ml (Per 5 Units) SC 03/28/25 08:59 20 unit QDAY PONCHO Administration Insulin Human Lispro 0 unit 02/25/25 08:19 02/26/25 07:26 Insulin Lispro (Admelog) 1 Unit/0.01 Ml Unit SC 03/25/25 20:59 4 unit ACHS PONCHO Administration Protocol Insulin Human Lispro 5 unit 02/26/25 12:00 Insulin Lispro (Admelog) 1 Unit/0.01 Ml Unit SC 03/28/25 11:59 TIDWM PONCHO Labetalol HCl 10 mg 02/23/25 00:12 Labetalol Inj 5 Mg/Ml Vial 20 Ml IVP 03/25/25 00:11 Q6HR PRN SBP>170 Losartan Potassium 100 mg 02/23/25 09:00 02/26/25 08:29 Losartan Potassium 25 Mg Tablet PO 03/25/25 08:59 100 mg QDAY PONCHO Administration Magnesium Hydroxide 30 ml 02/26/25 02:15 02/26/25 04:26 Milk Of Magnesia Susp 30 Ml Udc PO 03/28/25 02:14 30 ml QDAY PRN Administration CONSTIPATION Protocol Mirtazapine 7.5 mg 02/23/25 21:00 02/25/25 21:39 Mirtazapine 15 Mg Tablet PO 03/25/25 20:59 7.5 mg HS PONCHO Administration Morphine Sulfate 1 mg 02/24/25 09:15 02/26/25 05:15 Morphine Sulf Inj 10 Mg/Ml Vial IVP 02/28/25 10:19 1 mg Q4HR PRN Administration PAIN SCALE 7-10 (Severe Non-Formulary ( 1 applicatio 02/23/25 18:31 Lidocaine Hcl [ TOPICAL Aspercreme ( PRN PRN Lidocaine Hcl)] 4 % Pain Cream Non-Formulary ( 3 mg 02/23/25 21:00 02/25/25 21:48 Semaglutide 3 Mg PO 03/25/25 20:59 Not Given Tablet) HS PONCHO Ondansetron HCl 4 mg 02/22/25 23:47 02/23/25 00:14 Ondansetron Inj 2 Mg/Ml Inj 2 Ml IV 03/24/25 23:46 4 mg Q6H PRN Administration NAUSEA OR VOMITING Protocol Polyethylene Glycol 17 gm 02/26/25 02:15 02/26/25 08:29 Polyethylene Glycol 17 Gm Packet PO 03/28/25 02:14 17 gm QDAY PONCHO Administration Potassium Chloride 20 meq 02/24/25 09:00 02/26/25 08:29 Potassium Chloride 20 Meq Tabcr PO 03/26/25 08:59 20 meq QDAY PONCHO Administration Sennosides 2 tab 02/22/25 23:47 02/25/25 23:25 Senna Tablet PO 03/24/25 23:46 2 tab BID PRN Administration CONSTIPATION Protocol Sertraline HCl 50 mg 02/24/25 09:00 02/26/25 08:28 Sertraline Hcl 25 Mg Tablet PO 03/26/25 08:59 50 mg QDAY PONCHO Administration Plan Elidia Dobson is a 74-year-old female with a past medical history of CVA, DVT, coronary artery disease status post PCI, type 2 diabetes mellitus, hyperlipidemia, and hypertension who presented after mechanical ground-level fall and found to have right-sided hip fracture on imaging. #Acute intertrochanteric fracture of the right hip #Mechanical fall CT head negative for acute hemorrhage mass effect or midline shift, CT cervical spine showed no acute fracture, x-ray hip showed acute intertrochanteric fracture of right hip. ER consulted orthopedic surgeon Dr. Salcedo who recommended admission. Given patient's multiple risk factors and history of cardiac disease and CVAs, will get consult cardiology for cardiac clearance. EKG showed sinus rhythm, history of DVT and prescribed Eliquis last year. Unsure if she is taking any blood thinners at this moment. ? Orthopedic surgeon, Dr. Salcedo, consulted ? Status-post ORIF, pending PT evaluation ? Cardiology consult for cardiac clearance: cleared for procedure ? Pain management: IV morphine 1 mg every q4h, norco 5 ? Medically clear for discharge, pending SNF placement #Normocytic anemia, secondary to blood loss s/p ORIF, resolved Hemoglobin 6.8 from 8.8, unable to transfuse blood at this time given that patient is not oriented. Satus-post transfusion 2 units pRBC with improvement in hemoglobin from 6.8 to 9.8. #Leucocytosis, likely reactive Patient is afebrile, denies dysuria, cough or abdominal discomfort and thus likely reactive leukocytosis ? Continue to monitor #History of DVT #History of CVA #History of coronary artery disease status post PCI in 2019 Attempted to contact patient's partner multiple times but unable to reach. Echo 02/22: normal by two-dimensional, color flow imaging and Doppler interrogation. Normal LV size and function. Estimated EF 65%. RV normal in size and systolic function. Trace TR. ? Eliquis 2.5 mg p.o. BID #History of diabetes mellitus ? Glargine increased from 15 to 20 units ? Lispro increased from 3 to 5 units TIDWM ? SSI ? Carb consistent low diet #History of hypertension ? Labetolol 10 mg IV q6h PRN ? Losartan 100 mg daily #Constipation ? Polyethyelene glycol 17 mg po daily ? Sennoside 2 tab p.o. BID prn ? Milk of mag 30 mL po daily prn Hospital management: Disposition: s/p ORIF, pending insurance authorization for SNF placement Diet: carb consistent low Lines: PIV DVT prophylaxis: eliquis 2.5 mg BID CODE STATUS: full code ----- Plan discussed with attending physician Dr. Zen Edmonds MD PGY-1 Internal Medicine Attending Provider Attestation/Addendum I attest that I was physically present for the evaluation, physical examination, lab and imaging review of the patient with the residents. I discussed the case with the residents and agree with the findings and plans of care as documented above. At bedside today, patient appears more alert, oriented x 2. Pain has been well-controlled with analgesic regimen. Discussed with orthopedics, stated patient is stable from neurostandpoint. Underwent PT evaluation, recommended SNF placement. Vital signs and lab results have been stable. Patient is medically stable for discharge, awaiting SNF placement. Arturo Zaldivar MD
[2025-02-26] MEDS: ACETAMINOPHEN 325 MG TABLET 650 MG PO ×2 (10:26→22:33)
[2025-02-26] MEDS: INSULIN LISPRO (AdmeLOG) 1 UNIT/0.01 ML UNIT 5 UNIT SC ×2 (11:19→17:02)
--- NOTE | 2025-02-26 13:27 | ESPR_ITS ---
RE: UZMA MENDOZA : 1950 DATE OF SERVICE: 02/26/2025 SUBJECTIVE: Ms. Mendoza is seen for cardiovascular disease. She has a history of rheumatoid disease, history of coronary artery disease stent placement, came to the hospital for fracture. She underwent surgery successfully, did not have any problems, recovering well. She did require transfusion because of the anemia. Otherwise, doing fairly well today. She is not complaining of any cardiac symptoms or limitations. OBJECTIVE: Vital Signs: Blood pressure 121/61, pulse 84, temperature is 98, respirations 18, saturation 95% on room air. LABORATORY DATA: Hemoglobin is stable at 9.4, white count 12, creatinine 0.7. Electrolytes normal. Chemistry panel is normal. DIAGNOSTIC DATA: IMPRESSION: 1. Status post fracture reconstructive surgery. 2. Known coronary artery disease stent placement, stable. 3. Anemia requiring transfusion, possibly from blood loss, stable. RECOMMENDATIONS: Continue medical management. Cardiac is stable. We will sign off the case. If she has further problems, we will be happy to reevaluate her again. DT: 12:31:23 TT: 13:25:00 Ref: [id number] - TID: [id number]
--- NOTE | 2025-02-26 16:51 | PC.SS ---
Addendum entered by Phill Gamino 02/26/25 16:53: SS recevied message from TREY sEpinosa, insurance auth for pt is still pending Original Note: YANIQUE LM for TREY Espinosa, to see if any updates on auth for pt
[2025-02-26] MEDS: ATORVASTATIN CALCIUM 20 MG TABLET PO (22:31)
[2025-02-26] MEDS: amLODIPine BESYLATE 5 MG TABLET 10 MG PO (22:31)
[2025-02-26] MEDS: MIRTAZAPINE 15 MG TABLET 7.5 MG PO (22:32)
[2025-02-27] VITALS (10 sets, daily range): BP systolic 96–139; BP diastolic 64–85; PULSE 72–90; RESP 17–97; TEMP 36.2–36.7; O2SAT 94–99
[2025-02-27 05:56] LABS: Basophils # (Auto) 0.1 Thou/mm3 (0.0-0.2); Basophils % (Auto) 0 % (0-2.5); Eosinophils # (Auto) 0.3 Thou/mm3 (0.0-0.5); Eosinophils % (Auto) 3 % (0-10); Hemoglobin 9.5 g/dL (12.0-16.0); Immature Granulocytes % (Auto) 1 % (0-0); Immature Granulocytes Auto 0.09 Thou/mm3 (0.00-0.00); Lymphocytes # (Auto) 2.6 Thou/mm3 (1.0-4.8); Lymphocytes % (Auto) 23 % (10-50); Mean Corpuscular HGB Conc 33.9 g/dl (31.0-37.0); Mean Corpuscular Hemoglobin 28.5 pg (25.0-35.0); Mean Corpuscular Volume 84 fL (80-100); Monocytes % (Auto) 9 % (0-12); Neutrophils # (Auto) 7.4 Thou/mm3 (1.8-7.7); Neutrophils % (Auto) 65 % (37-80); Nucleated Red Blood Cell % 0 /100 WBC (0); Platelet Count 223 Thou/mm3 (140-440); Red Blood Count 3.33 Miln/mm3 (4.00-5.20); White Blood Count 11.4 Thou/mm3 (3.6-11.0)
[2025-02-27 06:30] LABS: Anion Gap 8 (7-16); BUN/Creatinine Ratio 28 Ratio (12-20); Blood Urea Nitrogen 22 mg/dL (9-23); Calcium 8.5 mg/dL (8.3-10.6); Carbon Dioxide 28.7 mMol/L (20.0-31.0); Chloride 102 mMol/L (98-107); Creatinine (Component) 0.8 mg/dL (0.6-1.3); Estimated Creatinine Clearance 41.4 mL/min (>60); Glucose 163 mg/dL (74-106); Osmolality,Calculated 284 (275-295); Phosphorous 3.5 mg/dL (2.4-5.1); Potassium 4.4 mMol/L (3.4-5.1); Sodium 139 mMol/L (136-145); eGFR > 60 See Note
[2025-02-27] MEDS: INSULIN LISPRO (AdmeLOG) 1 UNIT/0.01 ML UNIT SC ×4 (07:40→20:56)
[2025-02-27] MEDS: INSULIN LISPRO (AdmeLOG) 1 UNIT/0.01 ML UNIT 5 UNIT SC ×3 (07:41→16:59)
[2025-02-27] MEDS: INSULIN GLARGINE (Lantus) 5 UNIT/0.05 ML (PER 5 UNITS) 20 UNIT SC (07:42)
[2025-02-27] MEDS: POTASSIUM CHLORIDE 20 mEq TABCR PO (09:04)
[2025-02-27] MEDS: HYDROcodone/APAP 5/325 TABLET 1 TAB PO ×2 (09:04→20:52)
[2025-02-27] MEDS: SERTRALINE HCL 25 MG TABLET 50 MG PO (09:04)
[2025-02-27] MEDS: BusPIRone HCL 5 MG TABLET 10 MG PO (09:04)
[2025-02-27] MEDS: LOSARTAN POTASSIUM 25 MG TABLET 100 MG PO (09:05)
[2025-02-27] MEDS: POLYETHYLENE GLYCOL 17 GM PACKET PO (09:05)
[2025-02-27] MEDS: APIXABAN 2.5 MG TABLET PO ×2 (09:05→20:53)
[2025-02-27] MEDS: atenoloL 25 MG TABLET 12.5 MG PO (09:05)
--- NOTE | 2025-02-27 10:13 | ESPR_ITS ---
Documentation for date of: 02/27/25 Subjective Subjective Interval history: No acute overnight events. Seen and examined at bedside and patient endorses right lower extremity pain but is managed with her current regimen. Otherwise, vital signs stable. Hemoglobin stable s/p transfusion earlier on in hospital course, chem panel unremarkable. She contineus to have glucose readings in the 200s that are difficult to determine if issues are with fasting or after meals and today will monitor today and make adjustments as necessary. Exam Vital Signs Temp Pulse Resp BP Pulse Ox O2 Del Method O2 Flow Rate 98.0 F 80 18 139/83 H 96 Room Air 0 02/27/25 08:00 02/27/25 09:05 02/27/25 08:51 02/27/25 09:05 02/27/25 08:00 02/27/25 08:00 02/25/25 09:00 Narrative Exam General: AOx2, no acute distress, able to speak full sentences HEENT: NC/AT, mucous membranes moist, bilateral sclera anicteric Cardiovascular: regular rate and rhythm, S1/S2 present, no murmurs appreciated Pulmonary: clear to auscultation bilaterally, no rales/rhonchi/wheezes Abdominal: soft, non-tender, non-distended, no rebound/guarding, normal bowel sounds present Musculoskeletal: limited ROM of RLE, no peripheral edema Skin: warm and dry, intact, no rashes Neuro: slight tremor in right upper extremity Objective Labs 02/27/25 04:55 02/27/25 04:55 Labs: Laboratory Results - last 24 hr 02/27/25 04:55 WBC 11.4 H RBC 3.33 L Hgb 9.5 L Hct 28.0 L MCV 84 MCH 28.5 MCHC 33.9 RDW Std Deviation 43.0 Plt Count 223 Neut % (Auto) 65 Lymph % (Auto) 23 [place] % (Auto) 9 Eos % (Auto) 3 Baso % (Auto) 0 Neut # (Auto) 7.4 Lymph # (Auto) 2.6 [place] # (Auto) 1.0 H Eos # (Auto) 0.3 Baso # (Auto) 0.1 Immature Gran # (Auto) 0.09 H Absolute Nucleated RBC 0.00 Immature Gran % 1 H Nucleated RBC % 0 Sodium 139 Potassium 4.4 Chloride 102 Carbon Dioxide 28.7 Anion Gap 8 BUN 22 Creatinine 0.8 Estim Creat Clear Calc 41.4 L eGFR > 60 BUN/Creatinine Ratio 28 H Glucose 163 H D Calculated Osmolality 284 Calcium 8.5 Phosphorus 3.5 Magnesium 2.0 Quality Measures Quality Measures none Advance care planning discussed with:: patient Assessment & Plan Assessment Current Active Medications: Generic Name Dose Route Start Last Admin Trade Name Freq PRN Reason Stop Dose Admin Acetaminophen 650 mg 02/22/25 23:47 02/26/25 22:33 Acetaminophen 325 Mg Tablet PO 03/24/25 23:46 650 mg Q6H PRN Administration PAIN OR FEVER > 101 Protocol Hydrocodone Bitart/Acetaminophen 1 tab 02/24/25 09:14 02/25/25 23:25 Hydrocodone/Apap 5/325 Tablet PO 03/01/25 09:13 1 tab Q6HR PRN Administration PAIN SCALE 4-6 (Moderate Amlodipine Besylate 10 mg 02/23/25 21:00 02/26/25 22:31 Amlodipine Besylate 5 Mg Tablet PO 03/25/25 20:59 10 mg HS PONCHO Administration Apixaban 2.5 mg 02/25/25 10:30 02/27/25 09:05 Apixaban 2.5 Mg Tablet PO 03/18/25 10:29 2.5 mg BID PONCHO Administration Atenolol 12.5 mg 02/24/25 09:00 02/27/25 09:05 Atenolol 25 Mg Tablet PO 03/26/25 08:59 12.5 mg QDAY PONCHO Administration Atorvastatin Calcium 20 mg 02/23/25 21:00 02/26/25 22:31 Atorvastatin Calcium 20 Mg Tablet PO 03/25/25 20:59 20 mg HS PONCHO Administration Buspirone HCl 10 mg 02/24/25 09:00 02/27/25 09:04 Buspirone Hcl 5 Mg Tablet PO 03/26/25 08:59 10 mg DAILY PONCHO Administration Dextrose 25 ml 02/23/25 00:13 Dextrose 50%-Water Inj 50 Ml Syringe IV 03/25/25 00:12 Q15MIN PRN BG 50-70 responsive npo pt Dextrose 50 ml 02/23/25 00:13 Dextrose 50%-Water Inj 50 Ml Syringe IV 03/25/25 00:12 Q15MIN PRN BG <50 OR BG <70 & pt unresponsive Glucagon 1 mg 02/23/25 00:13 Glucagon Inj 1 Mg Vial IM Q15MIN PRN BG <70, and no IV access Insulin Glargine 20 unit 02/27/25 09:00 02/27/25 08:50 Insulin Glargine (Lantus) 5 Unit/0.05 Ml (Per 5 Units) SC 03/29/25 08:59 Not Given QDAY PONCHO Insulin Human Lispro 0 unit 02/25/25 08:19 02/27/25 07:40 Insulin Lispro (Admelog) 1 Unit/0.01 Ml Unit SC 03/25/25 20:59 3 unit ACHS PONCHO Administration Protocol Insulin Human Lispro 5 unit 02/27/25 12:00 Insulin Lispro (Admelog) 1 Unit/0.01 Ml Unit SC 03/29/25 11:59 TIDWM PONCHO Labetalol HCl 10 mg 02/23/25 00:12 Labetalol Inj 5 Mg/Ml Vial 20 Ml IVP 03/25/25 00:11 Q6HR PRN SBP>170 Losartan Potassium 100 mg 02/23/25 09:00 02/27/25 09:05 Losartan Potassium 25 Mg Tablet PO 03/25/25 08:59 100 mg QDAY PONCHO Administration Magnesium Hydroxide 30 ml 02/26/25 02:15 02/26/25 04:26 Milk Of Magnesia Susp 30 Ml Udc PO 03/28/25 02:14 30 ml QDAY PRN Administration CONSTIPATION Protocol Mirtazapine 7.5 mg 02/23/25 21:00 02/26/25 22:32 Mirtazapine 15 Mg Tablet PO 03/25/25 20:59 7.5 mg HS PONCHO Administration Morphine Sulfate 1 mg 02/24/25 09:15 02/26/25 05:15 Morphine Sulf Inj 10 Mg/Ml Vial IVP 02/28/25 10:19 1 mg Q4HR PRN Administration PAIN SCALE 7-10 (Severe Non-Formulary ( 1 applicatio 02/23/25 18:31 Lidocaine Hcl [ TOPICAL Aspercreme ( PRN PRN Lidocaine Hcl)] 4 % Pain Cream Ondansetron HCl 4 mg 02/22/25 23:47 02/23/25 00:14 Ondansetron Inj 2 Mg/Ml Inj 2 Ml IV 03/24/25 23:46 4 mg Q6H PRN Administration NAUSEA OR VOMITING Protocol Polyethylene Glycol 17 gm 02/26/25 02:15 02/27/25 09:05 Polyethylene Glycol 17 Gm Packet PO 03/28/25 02:14 17 gm QDAY PONCHO Administration Potassium Chloride 20 meq 02/24/25 09:00 02/27/25 09:04 Potassium Chloride 20 Meq Tabcr PO 03/26/25 08:59 20 meq QDAY PONCHO Administration Sennosides 2 tab 02/22/25 23:47 02/25/25 23:25 Senna Tablet PO 03/24/25 23:46 2 tab BID PRN Administration CONSTIPATION Protocol Sertraline HCl 50 mg 02/24/25 09:00 02/27/25 09:04 Sertraline Hcl 25 Mg Tablet PO 03/26/25 08:59 50 mg QDAY PONCHO Administration Adolfo Dobson is a 74-year-old female with a past medical history of CVA, DVT, coronary artery disease status post PCI, type 2 diabetes mellitus, hyperlipidemia, and hypertension who presented after mechanical ground-level fall and found to have right-sided hip fracture on imaging. #Acute intertrochanteric fracture of the right hip #Mechanical fall CT head negative for acute hemorrhage mass effect or midline shift, CT cervical spine showed no acute fracture, x-ray hip showed acute intertrochanteric fracture of right hip. ER consulted orthopedic surgeon Dr. Salcedo who recommended admission. Given patient's multiple risk factors and history of cardiac disease and CVAs, will get consult cardiology for cardiac clearance. EKG showed sinus rhythm, history of DVT and prescribed Eliquis last year. Unsure if she is taking any blood thinners at this moment. ? Orthopedic surgeon, Dr. Salcedo, consulted ? Status-post ORIF, PT recommending SNF ? Cardiology consult for cardiac clearance: cleared for procedure ? Pain management: IV morphine 1 mg every q4h, norco 5 ? Medically clear for discharge, pending SNF placement #Normocytic anemia, secondary to blood loss s/p ORIF, resolved Hemoglobin 6.8 from 8.8, unable to transfuse blood at this time given that patient is not oriented. Satus-post transfusion 2 units pRBC with improvement in hemoglobin from 6.8 to 9.8. #Leucocytosis, likely reactive Patient is afebrile, denies dysuria, cough or abdominal discomfort and thus likely reactive leukocytosis ? Continue to monitor #History of DVT #History of CVA #History of coronary artery disease status post PCI in 2019 Attempted to contact patient's partner multiple times but unable to reach. Echo 02/22: normal by two-dimensional, color flow imaging and Doppler interrogation. Normal LV size and function. Estimated EF 65%. RV normal in size and systolic function. Trace TR. ? Eliquis 2.5 mg p.o. BID #History of diabetes mellitus ? Glargine 20 units daily ? Lispro 5 units TIDWM ? SSI ? Carb consistent low diet #History of hypertension ? Labetolol 10 mg IV q6h PRN ? Losartan 100 mg daily #Constipation ? Polyethyelene glycol 17 mg po daily ? Sennoside 2 tab p.o. BID prn ? Milk of mag 30 mL po daily prn Hospital management: Disposition: s/p ORIF, pending insurance authorization for SNF placement Diet: carb consistent low Lines: PIV DVT prophylaxis: eliquis 2.5 mg BID CODE STATUS: full code ----- Plan discussed with attending physician Dr. Zen Edmonds MD PGY-1 Internal Medicine Attending Provider Attestation/Addendum I attest that I was physically present for the evaluation, physical examination, lab and imaging review of the patient with the residents. I discussed the case with the residents and agree with the findings and plans of care as documented above. At bedside today, patient states she is feeling well and denies any new complaints. Her hip pain has been well-controlled with analgesics. Appears alert and awake, oriented x 2. Vital signs have been stable. Lab results show a stable hemoglobin, 9.5 today. WBC count have been improving. Awaiting placement. Arturo Zaldivar MD
[2025-02-27] MEDS: MIRTAZAPINE 15 MG TABLET 7.5 MG PO (20:52)
[2025-02-27] MEDS: ATORVASTATIN CALCIUM 20 MG TABLET PO (20:53)
[2025-02-27] MEDS: amLODIPine BESYLATE 5 MG TABLET 10 MG PO (20:53)
[2025-02-28] VITALS (9 sets, daily range): BP systolic 117–146; BP diastolic 60–75; PULSE 69–93; RESP 17–96; TEMP 36.1–36.7; O2SAT 95–97; BMI 12.0
[2025-02-28 06:45] LABS: Basophils # (Auto) 0.1 Thou/mm3 (0.0-0.2); Basophils % (Auto) 1 % (0-2.5); Eosinophils # (Auto) 0.2 Thou/mm3 (0.0-0.5); Eosinophils % (Auto) 2 % (0-10); Hemoglobin 9.6 g/dL (12.0-16.0); Immature Granulocytes % (Auto) 1 % (0-0); Immature Granulocytes Auto 0.08 Thou/mm3 (0.00-0.00); Lymphocytes # (Auto) 2.1 Thou/mm3 (1.0-4.8); Lymphocytes % (Auto) 22 % (10-50); Mean Corpuscular HGB Conc 34.3 g/dl (31.0-37.0); Mean Corpuscular Hemoglobin 29.2 pg (25.0-35.0); Mean Corpuscular Volume 85 fL (80-100); Monocytes # (Auto) 0.9 Thou/mm3 (0.0-0.8); Monocytes % (Auto) 9 % (0-12); Neutrophils # (Auto) 6.4 Thou/mm3 (1.8-7.7); Neutrophils % (Auto) 66 % (37-80); Nucleated Red Blood Cell % 0 /100 WBC (0); Platelet Count 244 Thou/mm3 (140-440); RDW Standard Deviation 43.4 fL (36.4-46.3); Red Blood Count 3.29 Miln/mm3 (4.00-5.20); White Blood Count 9.7 Thou/mm3 (3.6-11.0)
[2025-02-28 07:02] LABS: Anion Gap 9 (7-16); BUN/Creatinine Ratio 30 Ratio (12-20); Blood Urea Nitrogen 24 mg/dL (9-23); Calcium 8.7 mg/dL (8.3-10.6); Chloride 102 mMol/L (98-107); Creatinine (Component) 0.8 mg/dL (0.6-1.3); Estimated Creatinine Clearance 40.8 mL/min (>60); Glucose 165 mg/dL (74-106); Osmolality,Calculated 283 (275-295); Phosphorous 4.2 mg/dL (2.4-5.1); Potassium 4.4 mMol/L (3.4-5.1); Sodium 138 mMol/L (136-145); eGFR > 60 See Note
[2025-02-28] MEDS: INSULIN GLARGINE (Lantus) 5 UNIT/0.05 ML (PER 5 UNITS) 20 UNIT SC (07:43)
[2025-02-28] MEDS: INSULIN LISPRO (AdmeLOG) 1 UNIT/0.01 ML UNIT 5 UNIT SC ×3 (07:44→17:55)
[2025-02-28] MEDS: INSULIN LISPRO (AdmeLOG) 1 UNIT/0.01 ML UNIT SC ×4 (07:44→20:32)
[2025-02-28] MEDS: BusPIRone HCL 5 MG TABLET 10 MG PO (08:41)
[2025-02-28] MEDS: SERTRALINE HCL 25 MG TABLET 50 MG PO (08:41)
[2025-02-28] MEDS: POTASSIUM CHLORIDE 20 mEq TABCR PO (08:41)
[2025-02-28] MEDS: atenoloL 25 MG TABLET 12.5 MG PO (08:42)
[2025-02-28] MEDS: APIXABAN 2.5 MG TABLET PO ×2 (08:42→20:30)
[2025-02-28] MEDS: LOSARTAN POTASSIUM 25 MG TABLET 100 MG PO (08:42)
[2025-02-28] MEDS: POLYETHYLENE GLYCOL 17 GM PACKET PO (08:43)
--- NOTE | 2025-02-28 09:55 | PD.RESPRO ---
Documentation for date of: 02/28/25 Subjective Subjective Interval history: No acute overnight events. Seen and examined at bedside and patient endorses right lower extremity pain but is managed with her current regimen. Otherwise, vital signs stable. Hemoglobin stable s/p transfusion earlier on in hospital course, chem panel unremarkable. Glucose stable on current regimen and will await for authorization. Lab holiday. Exam Vital Signs Temp Pulse Resp BP Pulse Ox O2 Del Method O2 Flow Rate 97.0 F 80 18 136/75 H 95 Room Air 0 02/28/25 08:00 02/28/25 08:42 02/28/25 08:00 02/28/25 08:42 02/28/25 08:00 02/28/25 08:00 02/28/25 08:00 Narrative Exam General: AOx2, no acute distress, able to speak full sentences HEENT: NC/AT, mucous membranes moist, bilateral sclera anicteric Cardiovascular: regular rate and rhythm, S1/S2 present, no murmurs appreciated Pulmonary: clear to auscultation bilaterally, no rales/rhonchi/wheezes Abdominal: soft, non-tender, non-distended, no rebound/guarding, normal bowel sounds present Musculoskeletal: limited ROM of RLE, no peripheral edema Skin: warm and dry, intact, no rashes Neuro: slight tremor in right upper extremity Objective Labs 02/28/25 05:32 02/28/25 05:32 Labs: Laboratory Results - last 24 hr 02/28/25 05:32 WBC 9.7 RBC 3.29 L Hgb 9.6 L Hct 28.0 L MCV 85 MCH 29.2 MCHC 34.3 RDW Std Deviation 43.4 Plt Count 244 Neut % (Auto) 66 Lymph % (Auto) 22 Harvey % (Auto) 9 Eos % (Auto) 2 Baso % (Auto) 1 Neut # (Auto) 6.4 Lymph # (Auto) 2.1 Harvey # (Auto) 0.9 H Eos # (Auto) 0.2 Baso # (Auto) 0.1 Immature Gran # (Auto) 0.08 H Absolute Nucleated RBC 0.00 Immature Gran % 1 H Nucleated RBC % 0 Sodium 138 Potassium 4.4 Chloride 102 Carbon Dioxide 27.0 Anion Gap 9 BUN 24 H Creatinine 0.8 Estim Creat Clear Calc 40.8 L eGFR > 60 BUN/Creatinine Ratio 30 H Glucose 165 H Calculated Osmolality 283 Calcium 8.7 Phosphorus 4.2 Magnesium 2.0 Quality Measures Quality Measures none Advance care planning discussed with:: patient Assessment & Plan Assessment Current Active Medications: Generic Name Dose Route Start Last Admin Trade Name Freq PRN Reason Stop Dose Admin Acetaminophen 650 mg 02/22/25 23:47 02/26/25 22:33 Acetaminophen 325 Mg Tablet PO 03/24/25 23:46 650 mg Q6H PRN Administration PAIN OR FEVER > 101 Protocol Hydrocodone Bitart/Acetaminophen 1 tab 02/24/25 09:14 02/27/25 20:52 Hydrocodone/Apap 5/325 Tablet PO 03/01/25 09:13 1 tab Q6HR PRN Administration PAIN SCALE 4-6 (Moderate Amlodipine Besylate 10 mg 02/23/25 21:00 02/27/25 20:53 Amlodipine Besylate 5 Mg Tablet PO 03/25/25 20:59 10 mg HS OPNCHO Administration Apixaban 2.5 mg 02/25/25 10:30 02/28/25 08:42 Apixaban 2.5 Mg Tablet PO 03/18/25 10:29 2.5 mg BID PONCHO Administration Atenolol 12.5 mg 02/24/25 09:00 02/28/25 08:42 Atenolol 25 Mg Tablet PO 03/26/25 08:59 12.5 mg QDAY PONCHO Administration Atorvastatin Calcium 20 mg 02/23/25 21:00 02/27/25 20:53 Atorvastatin Calcium 20 Mg Tablet PO 03/25/25 20:59 20 mg HS PONCHO Administration Buspirone HCl 10 mg 02/24/25 09:00 02/28/25 08:41 Buspirone Hcl 5 Mg Tablet PO 03/26/25 08:59 10 mg DAILY PONCHO Administration Dextrose 25 ml 02/23/25 00:13 Dextrose 50%-Water Inj 50 Ml Syringe IV 03/25/25 00:12 Q15MIN PRN BG 50-70 responsive npo pt Dextrose 50 ml 02/23/25 00:13 Dextrose 50%-Water Inj 50 Ml Syringe IV 03/25/25 00:12 Q15MIN PRN BG <50 OR BG <70 & pt unresponsive Glucagon 1 mg 02/23/25 00:13 Glucagon Inj 1 Mg Vial IM Q15MIN PRN BG <70, and no IV access Insulin Glargine 20 unit 02/27/25 09:00 02/28/25 07:43 Insulin Glargine (Lantus) 5 Unit/0.05 Ml (Per 5 Units) SC 03/29/25 08:59 20 unit QDAY PONCHO Administration Insulin Human Lispro 0 unit 02/25/25 08:19 02/28/25 07:44 Insulin Lispro (Admelog) 1 Unit/0.01 Ml Unit SC 03/25/25 20:59 3 unit ACHS PONCHO Administration Protocol Insulin Human Lispro 5 unit 02/27/25 12:00 02/28/25 07:44 Insulin Lispro (Admelog) 1 Unit/0.01 Ml Unit SC 03/29/25 11:59 5 unit TIDWM PONCHO Administration Labetalol HCl 10 mg 02/23/25 00:12 Labetalol Inj 5 Mg/Ml Vial 20 Ml IVP 03/25/25 00:11 Q6HR PRN SBP>170 Losartan Potassium 100 mg 02/23/25 09:00 02/28/25 08:42 Losartan Potassium 25 Mg Tablet PO 03/25/25 08:59 100 mg QDAY PONCHO Administration Magnesium Hydroxide 30 ml 02/26/25 02:15 02/26/25 04:26 Milk Of Magnesia Susp 30 Ml Udc PO 03/28/25 02:14 30 ml QDAY PRN Administration CONSTIPATION Protocol Mirtazapine 7.5 mg 02/23/25 21:00 02/27/25 20:52 Mirtazapine 15 Mg Tablet PO 03/25/25 20:59 7.5 mg HS PONCHO Administration Morphine Sulfate 1 mg 02/24/25 09:15 02/26/25 05:15 Morphine Sulf Inj 10 Mg/Ml Vial IVP 02/28/25 10:19 1 mg Q4HR PRN Administration PAIN SCALE 7-10 (Severe Non-Formulary ( 1 applicatio 02/23/25 18:31 Lidocaine Hcl [ TOPICAL Aspercreme ( PRN PRN Lidocaine Hcl)] 4 % Pain Cream Ondansetron HCl 4 mg 02/22/25 23:47 02/23/25 00:14 Ondansetron Inj 2 Mg/Ml Inj 2 Ml IV 03/24/25 23:46 4 mg Q6H PRN Administration NAUSEA OR VOMITING Protocol Polyethylene Glycol 17 gm 02/26/25 02:15 02/28/25 08:43 Polyethylene Glycol 17 Gm Packet PO 03/28/25 02:14 17 gm QDAY PONCHO Administration Potassium Chloride 20 meq 02/24/25 09:00 02/28/25 08:41 Potassium Chloride 20 Meq Tabcr PO 03/26/25 08:59 20 meq QDAY PONCHO Administration Sennosides 2 tab 02/22/25 23:47 02/25/25 23:25 Senna Tablet PO 03/24/25 23:46 2 tab BID PRN Administration CONSTIPATION Protocol Sertraline HCl 50 mg 02/24/25 09:00 02/28/25 08:41 Sertraline Hcl 25 Mg Tablet PO 03/26/25 08:59 50 mg QDAY PONCHO Administration Adolfo Dobson is a 74-year-old female with a past medical history of CVA, DVT, coronary artery disease status post PCI, type 2 diabetes mellitus, hyperlipidemia, and hypertension who presented after mechanical ground-level fall and found to have right-sided hip fracture on imaging. #Acute intertrochanteric fracture of the right hip #Mechanical fall CT head negative for acute hemorrhage mass effect or midline shift, CT cervical spine showed no acute fracture, x-ray hip showed acute intertrochanteric fracture of right hip. ER consulted orthopedic surgeon Dr. Salcedo who recommended admission. Given patient's multiple risk factors and history of cardiac disease and CVAs, will get consult cardiology for cardiac clearance. EKG showed sinus rhythm, history of DVT and prescribed Eliquis last year. Unsure if she is taking any blood thinners at this moment. ? Orthopedic surgeon, Dr. Salcedo, consulted ? Status-post ORIF, PT recommending SNF ? Cardiology consult for cardiac clearance: cleared for procedure ? Pain management: IV morphine 1 mg every q4h, norco 5 ? Medically clear for discharge, pending SNF placement #Normocytic anemia, secondary to blood loss s/p ORIF, resolved Hemoglobin 6.8 from 8.8, unable to transfuse blood at this time given that patient is not oriented. Satus-post transfusion 2 units pRBC with improvement in hemoglobin from 6.8 to 9.8. #Leucocytosis, likely reactive Patient is afebrile, denies dysuria, cough or abdominal discomfort and thus likely reactive leukocytosis ? Continue to monitor #History of DVT #History of CVA #History of coronary artery disease status post PCI in 2019 Attempted to contact patient's partner multiple times but unable to reach. Echo 02/22: normal by two-dimensional, color flow imaging and Doppler interrogation. Normal LV size and function. Estimated EF 65%. RV normal in size and systolic function. Trace TR. ? Eliquis 2.5 mg p.o. BID #History of diabetes mellitus ? Glargine 20 units daily ? Lispro 5 units TIDWM ? SSI ? Carb consistent low diet #History of hypertension ? Labetolol 10 mg IV q6h PRN ? Losartan 100 mg daily #Constipation ? Polyethyelene glycol 17 mg po daily ? Sennoside 2 tab p.o. BID prn ? Milk of mag 30 mL po daily prn Hospital management: Disposition: s/p ORIF, pending insurance authorization for SNF placement Diet: carb consistent low Lines: PIV DVT prophylaxis: eliquis 2.5 mg BID CODE STATUS: full code ----- Plan discussed with attending physician Dr. Zen Edmonds MD PGY-1 Internal Medicine Attending Provider Attestation/Addendum I attest that I was physically present for the evaluation, physical examination, lab and imaging review of the patient with the residents. I discussed the case with the residents and agree with the findings and plans of care as documented above. At bedside today, patient appears comfortable. Denies any new complaints, pain has been well-controlled with analgesics. Vital signs and lab results have been stable. Awaiting placement. Arturo Zaldivar MD
--- NOTE | 2025-02-28 14:40 | PC.SS ---
Rounding: Pt pending auth for [facility]
[2025-02-28] MEDS: amLODIPine BESYLATE 5 MG TABLET 10 MG PO (20:29)
[2025-02-28] MEDS: ATORVASTATIN CALCIUM 20 MG TABLET PO (20:30)
[2025-02-28] MEDS: MIRTAZAPINE 15 MG TABLET 7.5 MG PO (20:30)
[2025-03-01] VITALS (9 sets, daily range): BP systolic 112–183; BP diastolic 59–84; PULSE 71–86; RESP 17–20; TEMP 36.2–36.3; O2SAT 96–99
[2025-03-01] MEDS: HYDROcodone/APAP 5/325 TABLET 1 TAB PO (04:30)
[2025-03-01] MEDS: INSULIN GLARGINE (Lantus) 5 UNIT/0.05 ML (PER 5 UNITS) 25 UNIT SC (07:55)
[2025-03-01] MEDS: INSULIN LISPRO (AdmeLOG) 1 UNIT/0.01 ML UNIT SC ×2 (07:55→12:22)
[2025-03-01] MEDS: INSULIN LISPRO (AdmeLOG) 1 UNIT/0.01 ML UNIT 7 UNIT SC ×2 (07:55→12:23)
[2025-03-01] MEDS: SERTRALINE HCL 25 MG TABLET 50 MG PO (08:41)
[2025-03-01] MEDS: POLYETHYLENE GLYCOL 17 GM PACKET PO (08:52)
[2025-03-01] MEDS: LOSARTAN POTASSIUM 25 MG TABLET 100 MG PO (08:53)
[2025-03-01] MEDS: POTASSIUM CHLORIDE 20 mEq TABCR PO (08:53)
[2025-03-01] MEDS: atenoloL 25 MG TABLET 12.5 MG PO (08:54)
[2025-03-01] MEDS: BusPIRone HCL 5 MG TABLET 10 MG PO (08:54)
[2025-03-01] MEDS: APIXABAN 2.5 MG TABLET PO ×2 (08:54→20:08)
--- NOTE | 2025-03-01 09:16 | PC.SS ---
Addendum entered by DIONISIO Tapia 03/01/25 17:01: Updated bedside RN-Xuan she is aware of current status. Packet is ready in patient chart. If transportation needs to be arranged, ED collection systems worker available to assist before end of shift, RN is aware. [facility] contact number is [phone]. Addendum entered by DIONISIO Tapia 03/01/25 16:49: SS update: contacted the [facility] Department to get an update transcription made earlier, staff informs that the second shift will respond to the call and follow up with hospital staff as they were on an emergent response call earlier. Provided them with nursing station number to [email or web address]. Addendum entered by DIONISIO Tapia 03/01/25 16:02: Updated Francisca at [facility] to make aware of current status. Addendum entered by DIONISIO Tapia 03/01/25 15:04: SS update: sent a text message to patient's niece, Micki Moth [phone] and patient's life partner Noé Gatica to reach out to [facility]. Addendum entered by DIONISIO Tapia 03/01/25 14:47: SS follow up: contacted the [facility] [employer] to notify them we are unable to get ahold of patient's significant other, Noé Gatica, and patient is ready to be discharged. Provided [facility] police with Noé's name and home address so they can make an in person visit attempt to have him contact the hospital. Contact number provided. Addendum entered by DIONISIO Tapia 03/01/25 14:20: SS update: attempted contact with patient's niece Micki Moth [phone], unable to get ahold of her at this contact number. Addendum entered by DIONISIO Tapia 03/01/25 13:56: SS update: per Francisca at [facility], insurance authorization was obtained. SS attempted contact with patient's life partner Néo Gatica , however unable to get ahold of him or leave a voicemail. Bed side nurse updated. Addendum entered by DIONISIO Tapia 03/01/25 09:40: SS follow up: sent latest progress note and PT note to [facility] via [employer]. Patient pending insurance authorization for SNF. Addendum entered by DIONISIO Tapia 03/01/25 09:32: SS follow up: attempted contact with [employer] reference ID: [id number], was unable to leave a voicemail at this time. Original Note: SS follow up: spoke with Francisca galdamez at [facility], she informs that she checked authorization status for the patient this AM and remains pending. Francisca provided SS with insurance contact number with [employer] to be reference ID: [id number].
[2025-03-01] MEDS: ACETAMINOPHEN 325 MG TABLET 650 MG PO (10:31)
--- NOTE | 2025-03-01 11:39 | ESPR_ITS ---
RE: UZMA MENDOZA : 1950 DATE OF SERVICE: 03/01/2025 SUBJECTIVE: This 75-year-old lady admitted to the hospital with fracture of the hip and underwent surgery successfully. She did require transfusion, but hemoglobin now holding well. Cardiac collins was stable. She had a stent placement before. No anticoagulation needed. OBJECTIVE: Vital Signs: Blood pressure 112/60, pulse 74. Neck: Supple. Lungs: Decreased breath sounds. Heart: Heart sounds regular sinus rhythm. Abdomen: Thin and soft. Extremities: Mild edema. Genitourinary and Rectal: Not performed. Neurologic: Unremarkable. IMPRESSION: 1. Fracture of the hip; underwent surgery. 2. Coronary artery disease status post stent placement more than 10 years ago, stable. 3. Hypertension. 4. Anxiety. RECOMMENDATIONS: Continued medical management and the patient is stable to be transferred to rehab. No need for any anticoagulation for Plavix or antiplatelet drug therapy. DT: 08:56:30 TT: 10:31:00 Ref: [id number] - TID: [id number]
--- NOTE | 2025-03-01 13:13 | PC.NURSE ---
Attempted to contact pt life partner regarding discharge plans and pt belongings, no answer
--- NOTE | 2025-03-01 13:53 | PC.NURSE ---
Attempted to contact pt life partner regarding pt discharge, no answer
--- NOTE | 2025-03-01 14:25 | ESDS_ITS ---
<Statement entered by Lavern Casanova MD - 03/02/25 09:04> 75-year-old female with multiple comorbidities including hyperlipidemia hypertension and type 2 diabetes with subsequent CAD status post stent placement history of DVT status post therapy who presented with ground-level fall however denies syncope. Furthermore, patient underwent extensive workup with finding of acute intertrochanteric fracture of the right hip fracture and subsequelty underwent repair. Currently, patient is hemodynamicaly stable and plan to discharge. I reviewed above note and agree with findings and plans. I have also personally examined the patient with medicine team and went over assessment and plan with medical team including business management intern and resident physician. <Statement entered by Eloisa Thompson MD - 03/01/25 15:23> I discussed with and supervised the business management intern physician who took care of this patient. I personally saw and examined the patient and discussed the assessment and plan with the entire medicine team, including my attending Dr. Casanova, I agree with most of the assessment and plan as documented below Eloisa Thompson M.D. PGY-2 Disclaimer: Despite multiple revisions, due to the dictation software being used, the document bellow may not be free of grammatical errors including phonetic/typographic errors. However, this does not deter from our commitment to providing health care in the patient's best interest in mind. Planned Discharge Date 03/01/25 DS: Providers Provider Date of admission: 02/22/25 23:47 Primary care physician: Physician No Primary/Family Admitting Provider: Jeff Vargas MD Attending Provider on Admission: Arturo Zaldivar MD Consults: 02/22/25 23:48 Referral Physical Therapy Routine Comment: Physician Instructions: 02/22/25 23:52 Consult to Cardiology Routine Comment: cardiac clearance Consulting Provider: Higinio Morales 02/23/25 00:20 Consult to Orthopedic Routine Comment: Consulting Provider: Marco Salcedo 02/23/25 18:32 Referral Physical Therapy Urgent Comment: Physician Instructions: Attending Provider on DC: Jorge Luis Edmonds MD Discharging Provider: Jorge Luis Edmonds MD DS: Diagnosis Problem List Completed Was Problem List Reviewed/Reconciled?: Yes Hospital Course Hospital Course Hospital course: Elidia Dobson is a 75-year-old female with a past medical history of CAD status post stents, CVA, history of DVT (previously on Eliquis), type 2 diabetes mellitus, hyperlipidemia, and hypertension who presented to the ED after a mechanical ground-level fall. No loss of consciousness or seizure-like activity but did hit her head on the floor. CT cervical spine and CT head negative for any acute pathologies. However, hip x-ray showed acute intertrochanteric fracture of the right hip for which orthopedics was consulted. Given patient's cardiac history, cardiac clearance was needed and so cardiology consulted and cleared patient for procedure. Eventually underwent ORIF on 02/23 without any complications and pain was managed well with current regimen. Hemoglobin noted to drop post-procedure from 10.6 to 6.8 and was transfused total of 2 units pRBC and hemoglobin remained stable thereafter. Otherwise, vital signs remained stable, CBC largely unremarkable, and chem panel unremarkable other than her glucose levels which were managed with 25 units glargine, 7 units lispro TIDWM, and SSI. Patient medically cleared for discharge and PT recommended SNF upon discharge. Diagnoses during admission: #Acute intertrochanteric fracture of the right hip #Mechanical fall #Normocytic anemia, secondary to blood loss s/p ORIF, resolved #Leucocytosis, likely reactive #History of DVT #History of CVA #History of coronary artery disease status post PCI in 2019 #History of diabetes mellitus #History of hypertension #Constipation Discharge instructions: ? Take eliquis 2.5 mg twice daily for DVT prophylaxis ? Take norco 5 up to four time per day as needed for pain ? Take amlodipine 10 mg, atenolol 12.5 mg, and losartan 100 mg daily for your blood pressure ? Continue taking all other home medications as prescribed ? Follow-up with PCP within 1-2 weeks of discharge ? Follow-up with orthopedic surgeon, Dr. Salcedo, within 1-2 weeks of discharge ? Return to ED if symptoms worsen or recur ----- Plan discussed with attending physician Dr. Casanova and senior resident physician Dr. Donna Edmonds MD PGY-1 Internal Medicine Time Spent with Patient Time attestation: Total time spent providing and/or coordinating discharge services: Time spent: Greater than 30 minutes Exam Vital Signs Temp Pulse Resp BP Pulse Ox O2 Del Method O2 Flow Rate 97.1 F 79 20 117/72 98 Room Air 0 03/01/25 12:00 03/01/25 12:00 03/01/25 12:00 03/01/25 12:00 03/01/25 12:00 03/01/25 12:00 02/28/25 16:00 Narrative Exam General: AOx2, no acute distress, able to speak full sentences HEENT: NC/AT, mucous membranes moist, bilateral sclera anicteric Cardiovascular: regular rate and rhythm, S1/S2 present, no murmurs appreciated Pulmonary: clear to auscultation bilaterally, no rales/rhonchi/wheezes Abdominal: soft, non-tender, non-distended, no rebound/guarding, normal bowel sounds present Musculoskeletal: limited ROM of RLE, no peripheral edema Skin: warm and dry, intact, no rashes Neuro: slight tremor in right upper extremity Discharge Plan Plan Patient Disposition: Xfer Skilled Nsg Fac (SNF) Patient condition on transfer: Stable Care Plan Goals: ? Take eliquis 2.5 mg twice daily for DVT prophylaxis ? Take norco 5 up to four time per day as needed for pain ? Take amlodipine 10 mg, atenolol 12.5 mg, and losartan 100 mg daily for your blood pressure ? Continue taking all other home medications as prescribed ? Follow-up with PCP within 1-2 weeks of discharge ? Follow-up with orthopedic surgeon, Dr. Salcedo, within 1-2 weeks of discharge ? Return to ED if symptoms worsen or recur Prescriptions/Referrals Prescriptions/Med Rec: New buspirone 5 mg Tablet 10 mg PO DAILY 30 Days Qty: 60 0RF atenolol 25 mg Tablet 12.5 mg PO QDAY 30 Days Qty: 15 0RF amlodipine 5 mg Tablet 10 mg PO HS 30 Days Qty: 60 0RF losartan 25 mg Tablet 100 mg PO QDAY 30 Days Qty: 120 0RF Eliquis 2.5 mg Tablet 2.5 mg PO BID 30 Days Qty: 60 0RF hydrocodone-acetaminophen 5-325 mg tablet 1 tab PO Q6H MDD 4 PRN (Reason: pain) Qty: 12 0RF Continued simvastatin [Zocor] 40 mg Tablet 40 mg PO HS sertraline 50 mg Tablet 50 mg PO QDAY potassium chloride 20 mEq Tablet Extended Release 20 meq PO QDAY lidocaine HCl [Aspercreme (lidocaine HCl)] 4 % Cream 1 applic TOPICAL PRN PRN (Reason: Pain) Rx Instructions: OTC. Anywhere where there is pain- neck, knee.. metformin 850 mg tablet 850 mg PO BIDWMEAL Patient Comments: TAKE 1 TABLET BY MOUTH TWICE DAILY WITH MORNING AND EVENING MEALS mirtazapine 7.5 mg tablet 7.5 mg PO HS Patient Comments: TAKE 1 TABLET BY MOUTH AT BEDTIME Discontinued atenolol 25 mg Tablet 25 mg PO QDAY losartan 100 mg Tablet 100 mg PO QDAY Eliquis DVT-PE Treat 30D Start 5 mg (74 tabs) tablets,dose pack 5 mg PO BID Qty: 74 0RF buspirone 10 mg tablet 10 mg PO DAILY Patient Comments: TAKE 1 TABLET BY MOUTH EVERY DAY buspirone 15 mg tablet 15 mg PO QDAY Patient Comments: TAKE 1 TABLET BY MOUTH EVERY DAY Eliquis 5 mg tablet 5 mg PO Q12H Patient Comments: TAKE 1 TABLET BY MOUTH TWICE DAILY Referrals: No Primary/Family,Physician [Primary Care Provider] - Patient/Caregiver Discharge Instructions Print Language: Surinamese Stand Alone Forms: Kayla Award Info., Patient Portal Info Letter Discharge Order Discharge Orders: Discharge (Routine); Ordered 03/01/25 Ordered By: Jorge Luis Edmonds Quality Discharge Quality Measures VTE prophylaxis
--- NOTE | 2025-03-01 16:05 | PC.NURSE ---
Attempted to contact pt life partner regarding pt discharge, no answer
--- NOTE | 2025-03-01 19:14 | PC.CC ---
IDA Kumar arranged with dispatch and the p/u ETA is 2030 or sooner if EMS is available.
[2025-03-01] MEDS: MIRTAZAPINE 15 MG TABLET 7.5 MG PO (20:07)
[2025-03-01] MEDS: amLODIPine BESYLATE 5 MG TABLET 10 MG PO (20:07)
[2025-03-01] MEDS: ATORVASTATIN CALCIUM 20 MG TABLET PO (20:08)
== END 2025-03-01 21:22 | disposition skilled nursing facility (03) | DRG 482 ==
LOC: SERX 22:54 → SERHOLD 02-23 00:13 → S3NX 02-23 00:52
PROVIDERS: Orthopaedic Surgery Adult Reconstructive Orthopaedic Surgery; Student in an Organized Health Care Education/Training Program; Admitting Provider Internal Medicine; Emergency Provider Emergency Medicine; Visit Provider Student in an Organized Health Care Education/Training Program
PROC: 0QS636Z Reposition Right Upper Femur with Intramedullary Internal Fixation Device, Percutaneous Approach (ICD-10-PCS; CPT 27245; principal; 2025-02-23 16:30)
DX: S72.141A Displaced intertrochanteric fracture of right femur, initial encounter for closed fracture (principal); S09.90XA Unspecified injury of head, initial encounter; E78.00 Pure hypercholesterolemia, unspecified; I25.10 Atherosclerotic heart disease of native coronary artery without angina pectoris; D72.829 Elevated white blood cell count, unspecified; F41.9 Anxiety disorder, unspecified; M06.9 Rheumatoid arthritis, unspecified; I10 Essential (primary) hypertension; E11.9 Type 2 diabetes mellitus without complications; Z98.61 Coronary angioplasty status; Z87.891 Personal history of nicotine dependence; Z86.718 Personal history of other venous thrombosis and embolism; Z86.73 Personal history of transient ischemic attack (TIA), and cerebral infarction without residual deficits; Z75.1 Person awaiting admission to adequate facility elsewhere; Z79.01 Long term (current) use of anticoagulants; Z79.4 Long term (current) use of insulin; K59.00 Constipation, unspecified; Z79.84 Long term (current) use of oral hypoglycemic drugs; W01.0XXA Fall on same level from slipping, tripping and stumbling without subsequent striking against object, initial encounter; Z79.899 Other long term (current) drug therapy; Z95.5 Presence of coronary angioplasty implant and graft
CPT/HCPCS: 36415; 70450; 71045; 72125; 73501; 73502; 73552; 73562; 76000; 80048; 80053; 80061; 80076; 80307; 80320; 81001; 83036; 83605; 83690; 83735; 83880; 84100; 84443; 84484; 85014; 85018; 85025; 85610; 85730; 86850; 86870; 86900; 86901; 86902; 86921; 86922; 87081; 93005; 93306; 96374; 96375; 96376; 97162; 99291; A4217; A4649; C1713; C1776; J0131; J0360; J0690; J1100; J1815; J2270; J2405; J2704; J2710; J3010; J3475; J3490; J7120; P9016; A9270; G0480; J1596; J1805

== ENCOUNTER 2025-03-08 14:09 | Outpatient (AMB) | payer OTHER, MEDICARE, MEDICAID, SELFPAY ==
--- NOTE | 2025-03-08 14:20 | ORTHONT_ITS ---
Vital signs 03/08/25 14:22 Height 1.52 m Height Method Stated Weight 48.081 kg Weight Measurement Method Estimated by Patient BMI 20.7 BP 95/59 L Blood Pressure Source Automatic Cuff Blood Pressure Location Left Upper Arm Position Sitting Respiration 18 Pulse 69 Pulse Source Monitor Temp 96.5 F L Temp Source Temporal Artery Scan Pulse Oximetry (%) 98 Oxygen Delivery Method Room Air Med/Allergies Allergies & Medications Allergies POTASSIUM LIQUID Allergy (Severe, Uncoded 05/27/25 11:38) Anaphylaxis Medication Reconciliation potassium chloride 20 mEq tablet,extended release 20 meq PO QDAY 11/16/19 [History Confirmed 05/27/25] sertraline 50 mg tablet 50 mg PO QDAY 11/16/19 [History Confirmed 05/27/25] simvastatin 40 mg tablet (Zocor) 40 mg PO HS 11/16/19 [History Confirmed 5] lidocaine HCl 4 % topical cream (Aspercreme (lidocaine HCl)) 1 applic topical PRN PRN Pain 01/13/24 [History Confirmed 05/27/25] metformin 850 mg tablet 850 mg PO BIDWMEAL 01/13/24 [History Confirmed 05/27/25] mirtazapine 7.5 mg tablet 7.5 mg PO HS 01/13/24 [History Confirmed 05/27/25] hydrocodone 5 mg-acetaminophen 325 mg tablet 1 tab PO Q6H PRN pain #12 tabs 03/01/25 [Rx Confirmed 05/27/25] Exam Exam Patient is in no acute distress and is cooperative with the examination today. Breathing is nonlabored. In no respiratory distress. Patient has no paraspinal tenderness. Spinal deformity cannot be appreciated. The gait of the patient is nonantalgic Bilateral extremities were evaluated and demonstrates sensation intact to light touch. Palpable pedal pulses are present. No significant edema is present. Bilateral knees were examined and the patient has full strength and range of motion.. The left hip was examined. Patient was able to flex to 90 degrees, adduct to 30 degrees, abduct to 40 degrees, internally rotate to 20 degrees, and externally rotate to 20 degrees. Patient has a negative logroll. Stinchfield is negative. The patient is nontender diffusely to touch. The right hip was examined. Patient was able to flex to 90 degrees, adduct to 30 degrees, abduct to 40 degrees, internally rotate to 20 degrees, and externally rotate to 20 degrees. Patient has a negative logroll. The stinchfield is negative. Right hip incision is clean dry and intact I looked at x-rays of her right hip from [facility]. It demonstrates a right hip cephalomedullary nail of an intermediate marlene in good position and alignment Assessment and Plan Problem List (1) Intertrochanteric fracture of right hip: Status: Acute Plan: Patient is a pleasant 75-year-old female with a right hip intertrochanteric fracture. She is doing well 6 weeks postop. We recommend that she continue with physical therapy. She still at the rehab and is supposed to be discharged in the next week or so. Will see her in approximately 4 weeks with new x-rays Advanced Care Planning Discussion Advance care planning discussed with:: patient Office Procedures GNS Level of Care Nursing/Assessment Patient Status: Established Patient Nursing Assessment/Reassesment: Medication Reconciliation, Update PMH in EMR and Vital Signs Coordination of Care: Complex Care and Chronic Disease 1-5, Education Complex Pt/Fam, Consent,records obtained, informed consent, Results/Orders obtained and Staff clarify orders Established Patient Charge Established Patient Point Assignment: 95 Established Patient Point Charge: EP Level 3 (80-115) MA Intake Visit Data Collection New Patient or Established: Established Patient (seen at [facility] within 3 years) Reason for Visit:: RIGHT HIP POST OP Seen by Clinical Staff ONLY (RN/MA): No Verbal consent obtained for Telemed visit?: No Application Support Administrator Required: No PCP or OBGYN visit in last 3 months: Yes Hx Now: No Do You Feel Safe at Home: Yes Authorities Contacted: N/A Questionairres Past Medical History Past Medical History Have you ever been diagnosed with any of the following: Neurological Problems Cerebrovascular Accident (CVA): Yes Transient Ischemic Attacks (TIA): Yes Seizures: No Paralysis: Yes Cardiology Problems Coronary Artery Disease: Yes Hypercholesterolemia: Yes Congestive Heart Failure: No Hypertension: Yes Respiratory Problems Chronic Obstructive Pulmonary Disease (COPD): No Asthma: Yes Pneumonia: Yes Smoking: No Smoking Exposure: No Stomache/Intestinal Problems Hiatal Hernia: Yes Hemorrhoids: Yes Gastroesophageal Reflux Disease: Yes Genital/Urinary Problems Renal Disease: No Reproductive Problems Previous Pregnancies: Yes Musculoskeletal Problems Arthritis: Yes Rheumatoid Arthritis: Yes Degenerative Disk Disease: Yes Endocrine Problems Diabetes Mellitus Type 1: No Diabetes Mellitus Type 2: Yes Blood Problems Anemia: Yes Sickle Cell Disease: No Psychologic Problems Depression: Yes Anxiety: Yes Other Problems Hospitalization: Yes Falls: Yes Blood Transfusions: No Blood Transfusion Reaction: No Anesthesia Reactions: No Cancer: No Surgical History Hysterectomy: Yes Subjective Visit Visit for: follow up visit and hip Immunization / Flu Flu Vaccine in the Last 12 Months: No Flu Vaccine Exclusion Criteria: No Exclusion Criteria History of Present Illness Chief complaint: 4 WEEKS POST OP HIP Viktoria is a 75-year-old female who is 2 weeks out from a right hip cephalomedullary nail. She is doing well. She is still at [facility] Personal History Occupation: DISABLED Pain Pain level (0-10): 0 Pain duration: NONE Associated signs & symptoms: none Ambulatory data Ambulatory device: other (specify) (WHEEL CHAIR) Treatments Improvement with previous injections: No Improvement with PT: No Improvement with NSAIDS: no Review of Systems Review of Systems: All systems negative unless otherwise noted in HPI.
[2025-03-08 14:22] VITALS: BP 95/59; PULSE 69; RESP 18; TEMP 35.8; O2SAT 98; BMI 20.7
== END 2025-03-08 14:55 | disposition home or self-care (01) ==
PROVIDERS: Supervising Provider Orthopaedic Surgery Adult Reconstructive Orthopaedic Surgery; Visit Provider Orthopaedic Surgery Adult Reconstructive Orthopaedic Surgery
DX: S72.141D Displaced intertrochanteric fracture of right femur, subsequent encounter for closed fracture with routine healing (principal); X58.XXXD Exposure to other specified factors, subsequent encounter; I10 Essential (primary) hypertension; E78.00 Pure hypercholesterolemia, unspecified; I25.10 Atherosclerotic heart disease of native coronary artery without angina pectoris; K21.9 Gastro-esophageal reflux disease without esophagitis; E11.9 Type 2 diabetes mellitus without complications
CPT/HCPCS: 99213; G0463

== ENCOUNTER 2025-04-05 13:16 | Outpatient (AMB) | payer OTHER, MEDICARE, MEDICAID, SELFPAY ==
[2025-04-05 13:30] VITALS: BP 134/83; PULSE 63; RESP 19; TEMP 36.2; O2SAT 96
--- NOTE | 2025-04-05 13:30 | PD.ORTHCLVIS ---
Vital signs 04/05/25 13:30 Height 1.52 m Height Method Stated BP 134/83 H Blood Pressure Source Automatic Cuff Blood Pressure Location Right Upper Arm Position Sitting Respiration 19 Pulse 63 Pulse Source Monitor Temp 97.1 F Temp Source Temporal Artery Scan Pulse Oximetry (%) 96 Oxygen Delivery Method Room Air Med/Allergies Allergies & Medications Allergies POTASSIUM LIQUID Allergy (Severe, Uncoded 04/05/25 13:33) Anaphylaxis Medication Reconciliation potassium chloride 20 mEq tablet,extended release 20 meq PO QDAY 11/16/19 [History Confirmed 04/05/25] sertraline 50 mg tablet 50 mg PO QDAY 11/16/19 [History Confirmed 04/05/25] simvastatin 40 mg tablet (Zocor) 40 mg PO HS 11/16/19 [History Confirmed 04/05/25] lidocaine HCl 4 % topical cream (Aspercreme (lidocaine HCl)) 1 applic topical PRN PRN Pain 01/13/24 [History Confirmed 04/05/25] metformin 850 mg tablet 850 mg PO BIDWMEAL 01/13/24 [History Confirmed 04/05/25] mirtazapine 7.5 mg tablet 7.5 mg PO HS 01/13/24 [History Confirmed 04/05/25] hydrocodone 5 mg-acetaminophen 325 mg tablet 1 tab PO Q6H PRN pain #12 tabs 03/01/25 [Rx Confirmed 04/05/25] Exam Exam Patient is in no acute distress and is cooperative with the examination today. Breathing is nonlabored. In no respiratory distress. Patient has no paraspinal tenderness. Spinal deformity cannot be appreciated. The gait of the patient is nonantalgic Bilateral extremities were evaluated and demonstrates sensation intact to light touch. Palpable pedal pulses are present. No significant edema is present. Bilateral knees were examined and the patient has full strength and range of motion.. The left hip was examined. Patient was able to flex to 90 degrees, adduct to 30 degrees, abduct to 40 degrees, internally rotate to 20 degrees, and externally rotate to 20 degrees. Patient has a negative logroll. Stinchfield is negative. The patient is nontender diffusely to touch. The right hip was examined. Patient was able to flex to 90 degrees, adduct to 30 degrees, abduct to 40 degrees, internally rotate to 20 degrees, and externally rotate to 20 degrees. Patient has a negative logroll. The stinchfield is negative. Right hip incision is clean dry and intact I looked at x-rays of her right hip from [facility]. It demonstrates a right hip cephalomedullary nail of an intermediate marlene in good position and alignment Assessment and Plan Problem List (1) Intertrochanteric fracture of right hip: Status: Acute Plan: Patient is a pleasant 75-year-old female with a right hip intertrochanteric fracture. She is doing well 6 weeks postop. We recommend that she continue with physical therapy. She still at the rehab and is supposed to be discharged in the next week or so. Will see her in approximately 4 weeks with new x-rays Advanced Care Planning Discussion Advance care planning discussed with:: patient Office Procedures GNS Level of Care Nursing/Assessment Patient Status: Established Patient Nursing Assessment/Reassesment: Medication Reconciliation, Update PMH in EMR and Vital Signs Coordination of Care: Complex Care and Chronic Disease 1-5, Education Complex Pt/Fam, Consent,records obtained, informed consent, Results/Orders obtained and Staff clarify orders Established Patient Charge Established Patient Point Assignment: 95 Established Patient Point Charge: EP Level 3 (80-115) MA Intake Visit Data Collection New Patient or Established: Established Patient (seen at [facility] within 3 years) Reason for Visit:: 4 WEEKS F/U HIP POST OP Seen by Clinical Staff ONLY (RN/MA): No Verbal consent obtained for Telemed visit?: No Curtain Drier Required: No PCP or OBGYN visit in last 3 months: Yes Hx Now: No Do You Feel Safe at Home: Yes Authorities Contacted: N/A Questionairres Past Medical History Past Medical History Have you ever been diagnosed with any of the following: Neurological Problems Cerebrovascular Accident (CVA): Yes Transient Ischemic Attacks (TIA): Yes Seizures: No Paralysis: Yes Cardiology Problems Coronary Artery Disease: Yes Hypercholesterolemia: Yes Congestive Heart Failure: No Hypertension: Yes Respiratory Problems Chronic Obstructive Pulmonary Disease (COPD): No Asthma: Yes Pneumonia: Yes Smoking: No Smoking Exposure: No Stomache/Intestinal Problems Hiatal Hernia: Yes Hemorrhoids: Yes Gastroesophageal Reflux Disease: Yes Genital/Urinary Problems Renal Disease: No Reproductive Problems Previous Pregnancies: Yes Musculoskeletal Problems Arthritis: Yes Rheumatoid Arthritis: Yes Degenerative Disk Disease: Yes Endocrine Problems Diabetes Mellitus Type 1: No Diabetes Mellitus Type 2: Yes Blood Problems Anemia: Yes Sickle Cell Disease: No Psychologic Problems Depression: Yes Anxiety: Yes Other Problems Hospitalization: Yes Falls: Yes Blood Transfusions: No Blood Transfusion Reaction: No Anesthesia Reactions: No Cancer: No Surgical History Hysterectomy: Yes Subjective Visit Visit for: follow up visit and hip Immunization / Flu Flu Vaccine in the Last 12 Months: No Flu Vaccine Exclusion Criteria: No Exclusion Criteria History of Present Illness Chief complaint: 4 WEEKS POST OP HIP Viktoria is a 75-year-old female who is 5 weeks out from a right hip cephalomedullary nail. She is doing well. She is walking. She is still at [facility] Personal History Occupation: DISABLED Pain Pain level (0-10): 0 Pain duration: NONE Associated signs & symptoms: none Ambulatory data Ambulatory device: other (specify) (WHEELCHAIR) Treatments Improvement with previous injections: No Improvement with PT: No Improvement with NSAIDS: no Review of Systems Review of Systems: All systems negative unless otherwise noted in HPI.
== END 2025-04-05 13:41 | disposition home or self-care (01) ==
LOC: HODSRG 13:16
PROVIDERS: Supervising Provider Orthopaedic Surgery Adult Reconstructive Orthopaedic Surgery; Visit Provider Orthopaedic Surgery Adult Reconstructive Orthopaedic Surgery
DX: S72.141D Displaced intertrochanteric fracture of right femur, subsequent encounter for closed fracture with routine healing (principal); X58.XXXD Exposure to other specified factors, subsequent encounter; I10 Essential (primary) hypertension; E78.00 Pure hypercholesterolemia, unspecified; I25.10 Atherosclerotic heart disease of native coronary artery without angina pectoris; K21.9 Gastro-esophageal reflux disease without esophagitis; E11.9 Type 2 diabetes mellitus without complications
CPT/HCPCS: 99213; G0463

== ENCOUNTER 2025-05-27 11:01 | Outpatient (AMB) | payer OTHER, MEDICARE, MEDICAID, SELFPAY ==
--- NOTE | 2025-05-27 11:36 | ORTHONT_ITS ---
Vital signs 05/27/25 11:37 Height 1.52 m Height Method Measured Weight 48.619 kg Weight Measurement Method Standing Scale BMI 21.0 BP 125/75 Blood Pressure Source Automatic Cuff Blood Pressure Location Left Upper Arm Position Sitting Respiration 19 Pulse 83 Pulse Source Monitor Temp 96.3 F L Temp Source Temporal Artery Scan Pulse Oximetry (%) 93 L Oxygen Delivery Method Room Air Med/Allergies Allergies & Medications Allergies POTASSIUM LIQUID Allergy (Severe, Uncoded 05/27/25 11:38) Anaphylaxis Medication Reconciliation potassium chloride 20 mEq tablet,extended release 20 meq PO QDAY 11/16/19 [History Confirmed 05/27/25] sertraline 50 mg tablet 50 mg PO QDAY 11/16/19 [History Confirmed 05/27/25] simvastatin 40 mg tablet (Zocor) 40 mg PO HS 11/16/19 [History Confirmed 05/27/25] lidocaine HCl 4 % topical cream (Aspercreme (lidocaine HCl)) 1 applic topical PRN PRN Pain 01/13/24 [History Confirmed 05/27/25] metformin 850 mg tablet 850 mg PO BIDWMEAL 01/13/24 [History Confirmed 05/27/25] mirtazapine 7.5 mg tablet 7.5 mg PO HS 01/13/24 [History Confirmed 05/27/25] hydrocodone 5 mg-acetaminophen 325 mg tablet 1 tab PO Q6H PRN pain #12 tabs 03/01/25 [Rx Confirmed 05/27/25] Exam Exam Patient is in no acute distress and is cooperative with the examination today. Breathing is nonlabored. In no respiratory distress. Patient has no paraspinal tenderness. Spinal deformity cannot be appreciated. The gait of the patient is nonantalgic Bilateral extremities were evaluated and demonstrates sensation intact to light touch. Palpable pedal pulses are present. No significant edema is present. Bilateral knees were examined and the patient has full strength and range of motion.. The left hip was examined. Patient was able to flex to 90 degrees, adduct to 30 degrees, abduct to 40 degrees, internally rotate to 20 degrees, and externally rotate to 20 degrees. Patient has a negative logroll. Stinchfield is negative. The patient is nontender diffusely to touch. The right hip was examined. Patient was able to flex to 90 degrees, adduct to 30 degrees, abduct to 40 degrees, internally rotate to 20 degrees, and externally rotate to 20 degrees. Patient has a negative logroll. The stinchfield is negative. Right hip incision is clean dry and intact I looked at x-rays of her right hip from [facility]. It demonstrates a right hip cephalomedullary nail of an intermediate marlene in good position and alignment Assessment and Plan Problem List (1) Intertrochanteric fracture of right hip: Status: Acute Plan: Patient is a pleasant 75-year-old female with a right hip intertrochanteric fracture. She is doing well 4 weeks week postop. Her x-rays are good Advanced Care Planning Discussion Advance care planning discussed with:: patient Office Procedures GNS Level of Care Nursing/Assessment Patient Status: Established Patient Nursing Assessment/Reassesment: Medication Reconciliation, Orthostatic Vitals, Update PMH in EMR and Vital Signs Coordination of Care: Complex Care and Chronic Disease 1-5, Education Complex Pt/Fam, Consent,records obtained, informed consent, Results/Orders obtained and Staff clarify orders Established Patient Charge Established Patient Point Assignment: 105 Established Patient Point Charge: EP Level 3 (80-115) MA Intake Visit Data Collection New Patient or Established: Established Patient (seen at [facility] within 3 years) Reason for Visit:: F/U RIGHT HIP Seen by Clinical Staff ONLY (RN/MA): No Verbal consent obtained for Telemed visit?: No Content Developer Required: No PCP or OBGYN visit in last 3 months: Yes Hx Now: No Do You Feel Safe at Home: Yes Authorities Contacted: N/A Questionairres Past Medical History Past Medical History Have you ever been diagnosed with any of the following: Neurological Problems Cerebrovascular Accident (CVA): Yes Transient Ischemic Attacks (TIA): Yes Seizures: No Paralysis: Yes Cardiology Problems Coronary Artery Disease: Yes Hypercholesterolemia: Yes Congestive Heart Failure: No Hypertension: Yes Respiratory Problems Chronic Obstructive Pulmonary Disease (COPD): No Asthma: Yes Pneumonia: Yes Smoking: No Smoking Exposure: No Stomache/Intestinal Problems Hiatal Hernia: Yes Hemorrhoids: Yes Gastroesophageal Reflux Disease: Yes Genital/Urinary Problems Renal Disease: No Reproductive Problems Previous Pregnancies: Yes Musculoskeletal Problems Arthritis: Yes Rheumatoid Arthritis: Yes Degenerative Disk Disease: Yes Endocrine Problems Diabetes Mellitus Type 1: No Diabetes Mellitus Type 2: Yes Blood Problems Anemia: Yes Sickle Cell Disease: No Psychologic Problems Depression: Yes Anxiety: Yes Other Problems Hospitalization: Yes Falls: Yes Blood Transfusions: No Blood Transfusion Reaction: No Anesthesia Reactions: No Cancer: No Surgical History Hysterectomy: Yes Subjective Visit Visit for: follow up visit and hip Immunization / Flu Flu Vaccine in the Last 12 Months: No Flu Vaccine Exclusion Criteria: No Exclusion Criteria History of Present Illness Chief complaint: F/U RIGHT HIP Viktoria is a 75-year-old female who is 12 weeks out from a right hip cephalomedullary nail. She is doing well. She is walking. She is still at [facility] Personal History Occupation: DISABLED Pain Pain level (0-10): 0 Pain duration: NONE Associated signs & symptoms: none Ambulatory data Ambulatory device: other (specify) (WHEELCHAIR) Treatments Improvement with previous injections: No Improvement with PT: No Improvement with NSAIDS: no Review of Systems Review of Systems: All systems negative unless otherwise noted in HPI.
[2025-05-27 11:37] VITALS: BP 125/75; PULSE 83; RESP 19; TEMP 35.7; O2SAT 93; BMI 21.0
--- NOTE | 2025-05-27 11:47 | XR_ITS ---
Examination:Right hip AP, lateral, AP pelvis 3 views, AP lateral right femur 2 views Technique: Hip AP lateral, AP pelvis, 3 views, AP lateral right femur 2 views total 5 views Exam date and time:May 27, 2025 1211 hours INDICATIONS: Postop reduction internal fixation right hip fracture 3 months ago. FINDINGS: Severe osteopenia Healed right hip fracture with satisfactory alignment Intramedullary marlene satisfactory position. IMPRESSION: Healed right hip fracture with satisfactory alignment
== END 2025-05-27 12:33 | disposition home or self-care (01) ==
PROVIDERS: Supervising Provider Orthopaedic Surgery Adult Reconstructive Orthopaedic Surgery; Visit Provider Orthopaedic Surgery Adult Reconstructive Orthopaedic Surgery
DX: S72.141D Displaced intertrochanteric fracture of right femur, subsequent encounter for closed fracture with routine healing (principal); X58.XXXD Exposure to other specified factors, subsequent encounter; I10 Essential (primary) hypertension; E78.00 Pure hypercholesterolemia, unspecified; I25.10 Atherosclerotic heart disease of native coronary artery without angina pectoris; K21.9 Gastro-esophageal reflux disease without esophagitis; E11.9 Type 2 diabetes mellitus without complications
CPT/HCPCS: 73502; 99213; G0463

== ENCOUNTER 2025-07-05 11:06 | Outpatient (AMB) | payer OTHER, MEDICARE, MEDICAID, SELFPAY ==
--- NOTE | 2025-07-05 11:43 | ORTHONT_ITS ---
Vital signs 07/05/25 11:44 Height 1.52 m Height Method Stated Weight 47.712 kg Weight Measurement Method Standing Scale BMI 20.6 BP 112/62 Blood Pressure Source Automatic Cuff Blood Pressure Location Left Upper Arm Position Sitting Respiration 18 Pulse 63 Pulse Source Monitor Temp 97.6 F Temp Source Temporal Artery Scan Pulse Oximetry (%) 95 Oxygen Delivery Method Room Air Med/Allergies Allergies & Medications Allergies POTASSIUM LIQUID Allergy (Severe, Uncoded 05/27/25 11:38) Anaphylaxis Exam Exam Patient is in no acute distress and is cooperative with the examination today. Breathing is nonlabored. In no respiratory distress. Patient has no paraspinal tenderness. Spinal deformity cannot be appreciated. The gait of the patient is nonantalgic Bilateral extremities were evaluated and demonstrates sensation intact to light touch. Palpable pedal pulses are present. No significant edema is present. Bilateral knees were examined and the patient has full strength and range of motion.. The left hip was examined. Patient was able to flex to 90 degrees, adduct to 30 degrees, abduct to 40 degrees, internally rotate to 20 degrees, and externally rotate to 20 degrees. Patient has a negative logroll. Stinchfield is negative. The patient is nontender diffusely to touch. The right hip was examined. Patient was able to flex to 90 degrees, adduct to 30 degrees, abduct to 40 degrees, internally rotate to 20 degrees, and externally rotate to 20 degrees. Patient has a negative logroll. The stinchfield is negative. Right hip incision is clean dry and intact Xrays from 824/25 demonstrates a right hip cephalomedullary nail of an intermediate marlene in good position and alignment Assessment and Plan Problem List (1) Intertrochanteric fracture of right hip: Status: Acute Plan: Patient is a pleasant 75-year-old female with a right hip intertrochanteric fracture. She is 4 months out from surgery. The fracture is healed well and I will see her on an as needed basis Advanced Care Planning Discussion Advance care planning discussed with:: patient Office Procedures GNS Level of Care Nursing/Assessment Patient Status: Established Patient Nursing Assessment/Reassesment: Medication Reconciliation, Update PMH in EMR and Vital Signs Coordination of Care: Complex Care and Chronic Disease 1-5, Education Complex Pt/Fam, Consent,records obtained, informed consent, Results/Orders obtained and Staff clarify orders Established Patient Charge Established Patient Point Assignment: 95 Established Patient Point Charge: EP Level 3 (80-115) MA Intake Visit Data Collection New Patient or Established: Established Patient (seen at [facility] within 3 years) Reason for Visit:: F/U RIGHT HIP Seen by Clinical Staff ONLY (RN/MA): No Verbal consent obtained for Telemed visit?: No Training And Documentation Specialist Required: No PCP or OBGYN visit in last 3 months: Yes Hx Now: No Do You Feel Safe at Home: Yes Authorities Contacted: N/A Questionairres Past Medical History Past Medical History Have you ever been diagnosed with any of the following: Neurological Problems Cerebrovascular Accident (CVA): Yes Transient Ischemic Attacks (TIA): Yes Seizures: No Paralysis: Yes Cardiology Problems Coronary Artery Disease: Yes Hypercholesterolemia: Yes Congestive Heart Failure: No Hypertension: Yes Respiratory Problems Chronic Obstructive Pulmonary Disease (COPD): No Asthma: Yes Pneumonia: Yes Smoking: No Smoking Exposure: No Stomache/Intestinal Problems Hiatal Hernia: Yes Hemorrhoids: Yes Gastroesophageal Reflux Disease: Yes Genital/Urinary Problems Renal Disease: No Reproductive Problems Previous Pregnancies: Yes Musculoskeletal Problems Arthritis: Yes Rheumatoid Arthritis: Yes Degenerative Disk Disease: Yes Endocrine Problems Diabetes Mellitus Type 1: No Diabetes Mellitus Type 2: Yes Blood Problems Anemia: Yes Sickle Cell Disease: No Psychologic Problems Depression: Yes Anxiety: Yes Other Problems Hospitalization: Yes Falls: Yes Blood Transfusions: No Blood Transfusion Reaction: No Anesthesia Reactions: No Cancer: No Surgical History Hysterectomy: Yes Subjective Visit Visit for: follow up visit and hip Immunization / Flu Flu Vaccine in the Last 12 Months: No Flu Vaccine Exclusion Criteria: No Exclusion Criteria History of Present Illness Chief complaint: F/U RIGHT HIP Viktoria is a 75-year-old female who is 4 months from a right hip cephalomedullary nail. She is doing well. She is walking withouit any assistive device Personal History Occupation: DISABLED Pain Pain level (0-10): 0 Pain duration: NONE Associated signs & symptoms: none Ambulatory data Ambulatory device: walker Treatments Improvement with previous injections: No Improvement with PT: No Improvement with NSAIDS: no Review of Systems Review of Systems: All systems negative unless otherwise noted in HPI.
[2025-07-05 11:44] VITALS: BP 112/62; PULSE 63; RESP 18; TEMP 36.4; O2SAT 95; BMI 20.6
== END 2025-07-05 12:03 | disposition home or self-care (01) ==
LOC: HODSRG 11:06
PROVIDERS: Supervising Provider Orthopaedic Surgery Adult Reconstructive Orthopaedic Surgery; Visit Provider Orthopaedic Surgery Adult Reconstructive Orthopaedic Surgery
DX: S72.141D Displaced intertrochanteric fracture of right femur, subsequent encounter for closed fracture with routine healing (principal); X58.XXXD Exposure to other specified factors, subsequent encounter; I10 Essential (primary) hypertension; I25.10 Atherosclerotic heart disease of native coronary artery without angina pectoris; E78.00 Pure hypercholesterolemia, unspecified; K21.9 Gastro-esophageal reflux disease without esophagitis; E11.9 Type 2 diabetes mellitus without complications
CPT/HCPCS: 99213; G0463